=== PATIENT | male | born 1955 | race Caucasian/White ===

== ENCOUNTER 2017-12-06 16:33 | Inpatient (IN) | payer MEDICARE, SELFPAY ==
[2017-12-06] VITALS (30 sets, daily range): BP systolic 98–125; BP diastolic 63–72; PULSE 76–134; RESP 14–35; TEMP 36.7–37.2; O2SAT 95–99
--- NOTE | 2017-12-06 17:30 | DI.RPTCT_ITS ---
SYMPTOM/DIAGNOSIS: FEVER, WEAKNESS, ? PNEUMONIA, CONFUSION, ? ACUTE CVA PA AND LATERAL CHEST: There is chronic elevation of the left hemidiaphragm with superior retraction of the left hilum with suprahilar densities which are unchanged. There are two surgical clips within the left pulmonary hilum, unchanged. There are patchy densities within the right lung apex which is new since the prior study. These findings are suspicious for an acute pneumonitis in the appropriate clinical setting. Follow up imaging to confirm resolution is recommended. Note is made of left apical pleural thickening, unchanged. There is no pneumothorax. The heart is unremarkable. The mediastinum and bony structures are intact. SUMMARY: New right upper lobe patchy densities suspicious for an acute pneumonitis. There are stable appearing postoperative changes within the left hemithorax. NONCONTRAST HEAD CT: A noncontrast enhanced examination was performed. Cerebral atrophy is consistent with the patient's age. There is diffuse heterogeneity in the white matter consistent with small vessel disease. There is no evidence of an acute intra/extra-axial hemorrhage. There is nothing to suggest an acute stroke. The ventricles are unremarkable. There is no skull fracture. The soft tissues are unremarkable. The sinuses are unremarkable. There is no evidence of a mastoid effusion. SUMMARY: No acute intracranial abnormality is demonstrated.
--- NOTE | 2017-12-06 17:38 | ED.GENADUL ---
Disposition Clinical Impression: Fever, Weakness, Altered mental status, Pneumonia Disposition: [facility] INPATIENT Condition: Stable Medical Decision Making - Lab Data Laboratory Tests 12/06/17 12/06/17 12/06/17 17:00 17:00 18:30 WBC Cancelled RBC Cancelled Hgb Cancelled Hct Cancelled MCV Cancelled MCH Cancelled MCHC Cancelled RDW Cancelled Plt Count Cancelled MPV Cancelled Abs Immat Gran (auto) Cancelled Immature Gran % Cancelled Neutrophils % Cancelled Lymphocytes % Cancelled Monocytes % Cancelled Eosinophils % Cancelled Basophils % Cancelled Absolute Neutrophils Cancelled Band Neutrophils Cancelled Absolute Lymphocytes Cancelled Absolute Monocytes Cancelled Absolute Eosinophils Cancelled Absolute Basophils Cancelled Metamyelocytes Cancelled Myelocytes Cancelled Promyelocytes Cancelled Nucleated RBCs Cancelled Differential Comment Cancelled Atypical Lymphocytes Cancelled Other Cell Type Cancelled RBC Morphology Cancelled Polychromasia Cancelled Hypochromasia Cancelled Poikilocytosis Cancelled Basophilic Stippling Cancelled Anisocytosis Cancelled Microcytosis Cancelled Macrocytosis Cancelled Spherocytes Cancelled Target Cells Cancelled Tear Drop Cells Cancelled Ovalocytes Cancelled Stomatocytes Cancelled Armstrong-[place] Bodies Cancelled [place] Cells Cancelled Acanthocytes (Spur) Cancelled Schistocytes Cancelled Sodium Cancelled Potassium Cancelled Chloride Cancelled Carbon Dioxide Cancelled Anion Gap Cancelled BUN Cancelled Creatinine Cancelled Estimated GFR/1.73 m2 Cancelled Glucose Cancelled Lactate 0.9 Calcium Cancelled Magnesium Cancelled Total Bilirubin Cancelled AST Cancelled ALT Cancelled Alkaline Phosphatase Cancelled Troponin I Cancelled Total Protein Cancelled Albumin Cancelled 12/06/17 12/06/17 18:30 18:30 WBC 13.06 H RBC 3.07 L Hgb 10.4 L Hct 29.8 L MCV 97.1 H MCH 33.9 H MCHC 34.9 RDW 13.6 Plt Count 146 MPV 10.4 Abs Immat Gran (auto) Immature Gran % 0.3 Neutrophils % 79.5 Lymphocytes % 8.1 Monocytes % 11.9 Eosinophils % 0.0 Basophils % 0.2 Absolute Neutrophils 10.38 H Band Neutrophils Absolute Lymphocytes 1.06 L Absolute Monocytes 1.55 H Absolute Eosinophils 0.00 Absolute Basophils 0.03 Metamyelocytes Myelocytes Promyelocytes Nucleated RBCs Differential Comment Diff reviewed Atypical Lymphocytes Other Cell Type RBC Morphology Polychromasia Hypochromasia Poikilocytosis Basophilic Stippling Anisocytosis Microcytosis Macrocytosis Spherocytes Target Cells Tear Drop Cells Ovalocytes Stomatocytes Armstrong-[place] Bodies [place] Cells Acanthocytes (Spur) Schistocytes Sodium 137 Potassium 3.7 Chloride 104 Carbon Dioxide 22.6 Anion Gap 10.4 BUN 19 H Creatinine 1.11 Estimated GFR/1.73 m2 >= 60.00 Glucose 126 H Lactate Calcium 8.2 L Magnesium 2.1 Total Bilirubin 1.1 H AST 117 H ALT 103 H Alkaline Phosphatase 132 H Troponin I < 0.02 Total Protein 6.6 Albumin 2.4 L 12/06/17 1646: 97 bpm. Atrial fibrillation. Less than [address] depression noted in 3, aVF V3, V4, V5 and V6. No acute ST elevation. - Radiology Data Radiology results: report reviewed, image reviewed CT head: Negative Chest x-ray: 1. New right upper lobe patchy lung densities suspicious for pneumonia. 2. Radiographically stable appearing postoperative changes within the left thorax. - Medical Decision Making 62-year-old male with a history of atrial fibrillation, ID, Hodgkin's lymphoma with bone marrow transplant in remission, 5 cardiac stents, seizures who presents with fatigue, weakness, decreased p.o. intake, confusion and fever for the past few days. [facility] and discharged today but refused to sign discharge paperwork as she felt he was not appropriate for discharge. Upon review of paperwork from [facility], patient had a temperature of 38 7 last night. He had a chest x-ray which was negative. He had a CT head which was negative for acute findings but noted white matter changes and recommended an MRI. Patient was found to have facial pressure and was thought that he possibly had a sinus infection and was sent home with a prescription for Ceftin she did not yet start. He had a troponin that was 0.07 initially but eventually was ruled out with 2 negative troponins. Patient also had a seizure prior to his admission to [facility] and was continued on his Keppra. I do not see any mention on the discharge paperwork of a lumbar puncture. Patient is drowsy but able to answer some questions. He is oriented to person but not place or time. states this is not his baseline. Temp 99 oral. He has no sinus tenderness. Oral exam negative without any dental abscess or tenderness palpation of teeth. With patient's complaint of fever and confusion, I will do a lumbar puncture. Also proceed with remainder of infectious workup including lactate, blood cultures, chest x-ray, urinalysis and CT head. 193: Labs and imaging reviewed. White blood cell count 13. Lactate 0.9. AST 117. ALT 103. Alk phos 132. Troponin negative. CAT scan negative. Chest x-ray notes a possible right upper lobe pneumonia. Patient had no complaints of chest pain, cough or shortness of breath but with fever and weakness could be a possible pneumonia. Patient states he has a previous h/o transaminitis due to a previous liver injury due to Tylenol. Patient denies any recent Tylenol use. Lumbar puncture done and CSF fluid appeared clear. Patient tolerated procedure well. Patient does appear more alert and is now oriented after IV fluids. 1939: Discussed with Dr. Morin -accepts patient for admission. Will come to see patient in ED. CSF results pending. Will treat for possible pneumonia as possible hospital-acquired as he had recent admission to hospital as well as for possible meningitis. Patient has allergy to penicillin. Dose of vancomycin and Cipro ordered. History of Present Illness - General Chief complaint: GenMedical Stated complaint: UNKNOWN Time Seen by Provider: 12/06/17 16:36 Source: patient, family Mode of arrival: wheelchair Limitations: altered mental status - History of Present Illness Initial comments: Patient is a 62-year-old male atrial fibrillation, ID, Hodgkin's lymphoma with history of bone marrow transplant in remission, and 5 cardiac stents, [facility] who presents for fatigue, weakness, fever and confusion for the past few days. states that patient is normally alert and oriented ?3 and able to function on his own and has not been able to move much over the past few days. She states [facility] and he was admitted for atrial fibrillation. She is unsure about his workup but states he did develop a fever of 101 while there. Patient states they plan to discharge him today but she did not sign the paperwork because she did not think it was appropriate. Patient was driven to home and states she was unable to get him out of the car so she called his PCP Dr. Andersen and he advised him to come directly to the ER. Patient has had decreased p.o. intake but has no complaints of headache, dizziness, chest pain, shortness of breath, abdominal pain, vomiting or diarrhea. - Related Data Ascorbic Acid [Vitamin C] 1 tab PO DAILY 08/04/12 Triamcinolone Acetonide [Triamcinolone Acetonide 0.1%] 1 sunita TP BID #3 08/04/12 Ubidecarenone [Coenzyme Q10] 1 cap PO DAILY 08/04/12 Aspirin 81 mg PO DAILY tab-cap 01/30/13 [place]-3 Fatty Acids/Fish Oil [Fish Oil 1,000 mg Softgel] 1 cap PO BID 04/20/13 Nitroglycerin [Nitrostat] 1 tab SL PRN #25 tab 05/31/13 Omeprazole 20 mg PO BID #180 tab-cap 08/13/15 Cholecalciferol (Vitamin D3) [Vitamin D3] 1,000 unit PO DAILY 01/08/16 Melatonin 5 mg PO hs prn 01/08/16 Nitroglycerin 0.4 mg BC ONCE tab-cap 10/13/16 Metoprolol [Lopressor] 12.5 mg PO BID #90 tablet 12/17/16 LevETIRAcetam [Keppra] 1 tab PO BID #180 tab-cap 02/21/17 LevETIRAcetam [Keppra] 2 tab PO BID #360 tab-cap 02/21/17 Simvastatin [Zocor] 1 tab PO DAILY #90 tab-cap 04/27/17 Apixaban [Eliquis] 2.5 mg PO BID #180 tab-cap 06/14/17 Spironolactone 12.5 mg PO DAILY #90 tab-cap 11/18/17 Allergies Allergy/AdvReac Type Severity Reaction Status Date / Time amoxicillin Allergy Severe Unverified 12/06/17 16:52 potassium Allergy Severe ITCHING, Unverified 12/06/17 16:52 RASH silver Allergy Intermediate SKIN RASH Unverified 12/06/17 16:52 nickel Allergy Mild SKIN RASH Unverified 12/06/17 16:52 acetaminophen Allergy Unknown Unverified 12/06/17 16:52 Iodinated Contrast- Oral and Allergy Unknown Unverified 12/06/17 16:52 IV Dye copper [Copper] Allergy Unverified 12/06/17 16:52 pravastatin AdvReac Unknown MUSCLE Unverified 12/06/17 16:52 ACHES Review of Systems Constitutional: chills, fever Eyes: denies: eye pain ENT: denies: ear pain, throat pain Respiratory: denies: cough, shortness of breath Cardiovascular: denies: chest pain, dyspnea on exertion Gastrointestinal: denies: abdominal pain, nausea, vomiting, diarrhea Genitourinary: denies: urgency, dysuria, frequency Musculoskeletal: denies: back pain Skin: denies: rash, lesions Neurological: weakness. denies: headache, numbness, paresthesias Past Medical History - Past Medical History Medical history: AFIB, AMI, asthma, seizures Retinal detachment, Bone marrow transplant Surgical history: angioplasty/stent Psychiatric history: anxiety, depression - Social History Smoking status: never smoker Alcohol use: occasionally Drug use: none General Exam - General Limitations: no limitations General appearance: alert, in no apparent distress - Eye Eye exam: Present: PERRL, EOMI - ENT ENT exam: Present: mucous membranes dry, TM's normal bilaterally - Neck Neck exam: Present: normal inspection - Respiratory Respiratory exam: Present: normal lung sounds bilaterally. Absent: respiratory distress, wheezes, rales, rhonchi, stridor - Cardiovascular Cardiovascular Exam: Present: regular rate, normal rhythm. Absent: bradycardia, tachycardia - GI/Abdominal GI/Abdominal exam: Present: soft, normal bowel sounds. Absent: distended, tenderness, guarding, rebound, rigid - Neurological Exam Neurological exam: Present: alert, oriented X3, CN II-XII intact, other (Muscle strength 5/5 bilateral upper and lower extremities.). Absent: motor sensory deficit - Psychiatric Psychiatric exam: Present: flat affect - Skin Skin exam: Present: warm, dry, intact Course Vital Signs - 24 hr 12/06/17 16:41 Temperature 99.0 F Pulse 109 H Respiratory 28 H Rate Blood Pressure 105/69 Pulse Oximetry 95
--- NOTE | 2017-12-06 17:42 | ED.GENADUL_ITS ---
Disposition Clinical Impression: Fever, Weakness, Altered mental status, Pneumonia Disposition: [facility] INPATIENT Condition: Stable Medical Decision Making - Lab Data Laboratory Tests 12/06/17 12/06/17 12/06/17 17:00 17:00 18:30 WBC Cancelled RBC Cancelled Hgb Cancelled Hct Cancelled MCV Cancelled MCH Cancelled MCHC Cancelled RDW Cancelled Plt Count Cancelled MPV Cancelled Abs Immat Gran (auto) Cancelled Immature Gran % Cancelled Neutrophils % Cancelled Lymphocytes % Cancelled Monocytes % Cancelled Eosinophils % Cancelled Basophils % Cancelled Absolute Neutrophils Cancelled Band Neutrophils Cancelled Absolute Lymphocytes Cancelled Absolute Monocytes Cancelled Absolute Eosinophils Cancelled Absolute Basophils Cancelled Metamyelocytes Cancelled Myelocytes Cancelled Promyelocytes Cancelled Nucleated RBCs Cancelled Differential Comment Cancelled Atypical Lymphocytes Cancelled Other Cell Type Cancelled RBC Morphology Cancelled Polychromasia Cancelled Hypochromasia Cancelled Poikilocytosis Cancelled Basophilic Stippling Cancelled Anisocytosis Cancelled Microcytosis Cancelled Macrocytosis Cancelled Spherocytes Cancelled Target Cells Cancelled [place]ear [place] Cells Cancelled Ovalocytes Cancelled Stomatocytes Cancelled Armstrong-[place] Bodies Cancelled [place] Cells Cancelled Acanthocytes (Spur) Cancelled Schistocytes Cancelled Sodium Cancelled Potassium Cancelled Chloride Cancelled Carbon Dioxide Cancelled Anion Gap Cancelled BUN Cancelled Creatinine Cancelled Estimated GFR/1.73 m2 Cancelled Glucose Cancelled Lactate 0.9 Calcium Cancelled Magnesium Cancelled Total Bilirubin Cancelled AST Cancelled ALT Cancelled Alkaline Phosphatase Cancelled Troponin I Cancelled Total Protein Cancelled Albumin Cancelled 12/06/17 12/06/17 18:30 18:30 WBC 13.06 H RBC 3.07 L Hgb 10.4 L Hct 29.8 L MCV 97.1 H MCH 33.9 H MCHC 34.9 RDW 13.6 Plt Count 146 MPV 10.4 Abs Immat Gran (auto) Immature Gran % 0.3 Neutrophils % 79.5 Lymphocytes % 8.1 Monocytes % 11.9 Eosinophils % 0.0 Basophils % 0.2 Absolute Neutrophils 10.38 H Band Neutrophils Absolute Lymphocytes 1.06 L Absolute Monocytes 1.55 H Absolute Eosinophils 0.00 Absolute Basophils 0.03 Metamyelocytes Myelocytes Promyelocytes Nucleated RBCs Differential Comment Diff reviewed Atypical Lymphocytes Other Cell Type RBC Morphology Polychromasia Hypochromasia Poikilocytosis Basophilic Stippling Anisocytosis Microcytosis Macrocytosis Spherocytes Target Cells Tear Drop Cells Ovalocytes Stomatocytes Armstrong-[place] Bodies [place] Cells Acanthocytes (Spur) Schistocytes Sodium 137 Potassium 3.7 Chloride 104 Carbon Dioxide 22.6 Anion Gap 10.4 BUN 19 H Creatinine 1.11 Estimated GFR/1.73 m2 >= 60.00 Glucose 126 H Lactate Calcium 8.2 L Magnesium 2.1 Total Bilirubin 1.1 H AST 117 H ALT 103 H Alkaline Phosphatase 132 H Troponin I < 0.02 Total Protein 6.6 Albumin 2.4 L 12/06/17 1646: 97 bpm. Atrial fibrillation. Less than [address] depression noted in 3, aVF V3, V4, V5 and V6. No acute ST elevation. - Radiology Data Radiology results: report reviewed, image reviewed CT head: Negative Chest x-ray: 1. New right upper lobe patchy lung densities suspicious for pneumonia. 2. Radiographically stable appearing postoperative changes within the left thorax. - Medical Decision Making 62-year-old male with a history of atrial fibrillation, [place], Hodgkin's lymphoma with bone marrow transplant in remission, 5 cardiac stents, seizures who presents with fatigue, weakness, decreased p.o. intake, confusion and fever for the past few days. Patient was admitted 2 [facility] yesterday for atrial fibrillation and discharged today but refused to sign discharge paperwork as she felt he was not appropriate for discharge. Upon review of paperwork from [facility], patient had a temperature of 38 7 last night. He had a chest x-ray which was negative. He had a CT head which was negative for acute findings but noted white matter changes and recommended an MRI. Patient was found to have facial pressure and was thought that he possibly had a sinus infection and was sent home with a prescription for Ceftin she did not yet start. He had a troponin that was 0.07 initially but eventually was ruled out with 2 negative troponins. Patient also had a seizure prior to his admission to [facility] and was continued on his Keppra. I do not see any mention on the discharge paperwork of a lumbar puncture. Patient is drowsy but able to answer some questions. He is oriented to person but not place or time. states this is not his baseline. Temp 99 oral. He has no sinus tenderness. Oral exam negative without any dental abscess or tenderness palpation of teeth. With patient's complaint of fever and confusion, I will do a lumbar puncture. Also proceed with remainder of infectious workup including lactate, blood cultures, chest x-ray, urinalysis and CT head. 193: Labs and imaging reviewed. White blood cell count 13. Lactate 0.9. AST 117. ALT 103. Alk phos 132. Troponin negative. CAT scan negative. Chest x- ray notes a possible right upper lobe pneumonia. Patient had no complaints of chest pain, cough or shortness of breath but with fever and weakness could be a possible pneumonia. Patient states he has a previous h/o transaminitis due to a previous liver injury due to Tylenol. Patient denies any recent Tylenol use. Lumbar puncture done and CSF fluid appeared clear. Patient tolerated procedure well. Patient does appear more alert and is now oriented after IV fluids. 1939: Discussed with Dr. Morin -accepts patient for admission. Will come to see patient in ED. CSF results pending. Will treat for possible pneumonia as possible hospital-acquired as he had recent admission to hospital as well as for possible meningitis. Patient has allergy to penicillin. Dose of vancomycin and Cipro ordered. History of Present Illness - General Chief complaint: GenMedical Stated complaint: UNKNOWN Time Seen by Provider: 12/06/17 16:36 Source: patient, family Mode of arrival: wheelchair Limitations: altered mental status - History of Present Illness Initial comments: Patient is a 62-year-old male atrial fibrillation, [place], Hodgkin's lymphoma with history of bone marrow transplant in remission, and 5 cardiac stents, with recent admission to [facility] yesterday for atrial fibrillation who presents for fatigue, weakness, fever and confusion for the past few days. states that patient is normally alert and oriented 3 and able to function on his own and has not been able to move much over the past few days. She states yesterday she took him to [facility] for his symptoms and he was admitted for atrial fibrillation. She is unsure about his workup but states he did develop a fever of 101 while there. Patient states they plan to discharge him today but she did not sign the paperwork because she did not think it was appropriate. Patient was driven to home and states she was unable to get him out of the car so she called his PCP Dr. Andersen and he advised him to come directly to the ER. Patient has had decreased p.o. intake but has no complaints of headache, dizziness, chest pain, shortness of breath, abdominal pain, vomiting or diarrhea. - Related Data Ascorbic Acid [Vitamin C] 1 tab PO DAILY 08/04/12 Triamcinolone Acetonide [Triamcinolone Acetonide 0.1%] 1 sunita TP BID #3 08/04/12 Ubidecarenone [Coenzyme Q10] 1 cap PO DAILY 08/04/12 Aspirin 81 mg PO DAILY tab-cap 01/30/13 [place]-3 Fatty Acids/Fish Oil [Fish Oil 1,000 mg Softgel] 1 cap PO BID 04/20/13 Nitroglycerin [Nitrostat] 1 tab SL PRN #25 tab 05/31/13 Omeprazole 20 mg PO BID #180 tab-cap 08/13/15 Cholecalciferol (Vitamin D3) [Vitamin D3] 1,000 unit PO DAILY 01/08/16 Melatonin 5 mg PO hs prn 01/08/16 Nitroglycerin 0.4 mg BC ONCE tab-cap 10/13/16 Metoprolol [Lopressor] 12.5 mg PO BID #90 tablet 12/17/16 LevETIRAcetam [Keppra] 1 tab PO BID #180 tab-cap 02/21/17 LevETIRAcetam [Keppra] 2 tab PO BID #360 tab-cap 02/21/17 Simvastatin [Zocor] 1 tab PO DAILY #90 tab-cap 04/27/17 Apixaban [Eliquis] 2.5 mg PO BID #180 tab-cap 06/14/17 Spironolactone 12.5 mg PO DAILY #90 tab-cap 11/18/17 Allergies Allergy/AdvReac Type Severity Reaction Status Date / Time amoxicillin Allergy Severe Unverified 12/06/17 16:52 potassium Allergy Severe ITCHING, Unverified 12/06/17 16:52 RASH silver Allergy Intermediate SKIN RASH Unverified 12/06/17 16:52 nickel Allergy Mild SKIN RASH Unverified 12/06/17 16:52 acetaminophen Allergy Unknown Unverified 12/06/17 16:52 Iodinated Contrast- Oral and Allergy Unknown Unverified 12/06/17 16:52 IV Dye copper [Copper] Allergy Unverified 12/06/17 16:52 pravastatin AdvReac Unknown MUSCLE Unverified 12/06/17 16:52 ACHES Review of Systems Constitutional: chills, fever Eyes: denies: eye pain ENT: denies: ear pain, throat pain Respiratory: denies: cough, shortness of breath Cardiovascular: denies: chest pain, dyspnea on exertion Gastrointestinal: denies: abdominal pain, nausea, vomiting, diarrhea Genitourinary: denies: urgency, dysuria, frequency Musculoskeletal: denies: back pain Skin: denies: rash, lesions Neurological: weakness. denies: headache, numbness, paresthesias Past Medical History - Past Medical History Medical history: AFIB, AMI, asthma, seizures Retinal detachment, Bone marrow transplant Surgical history: angioplasty/stent Psychiatric history: anxiety, depression - Social History Smoking status: never smoker Alcohol use: occasionally Drug use: none General Exam - General Limitations: no limitations General appearance: alert, in no apparent distress - Eye Eye exam: Present: PERRL, EOMI - ENT ENT exam: Present: mucous membranes dry, TM's normal bilaterally - Neck Neck exam: Present: normal inspection - Respiratory Respiratory exam: Present: normal lung sounds bilaterally. Absent: respiratory distress, wheezes, rales, rhonchi, stridor - Cardiovascular Cardiovascular Exam: Present: regular rate, normal rhythm. Absent: bradycardia , tachycardia - GI/Abdominal GI/Abdominal exam: Present: soft, normal bowel sounds. Absent: distended, tenderness, guarding, rebound, rigid - Neurological Exam Neurological exam: Present: alert, oriented X3, CN II-XII intact, other (Muscle strength 5/5 bilateral upper and lower extremities.). Absent: motor sensory deficit - Psychiatric Psychiatric exam: Present: flat affect - Skin Skin exam: Present: warm, dry, intact Course Vital Signs - 24 hr 12/06/17 16:41 Temperature 99.0 F Pulse 109 H Respiratory 28 H Rate Blood Pressure 105/69 Pulse Oximetry 95
[2017-12-06] MEDS: Normal Saline 1,000 ML 1000 ML IV (18:16)
--- NOTE | 2017-12-06 18:29 | DI.VRAD_ITS ---
EXAM: CT Head Without Intravenous Contrast CLINICAL HISTORY: 62 years old, male; Signs and symptoms; Other: Confusion, fever, weakness, R/O acute CVA TECHNIQUE: Axial computed tomography images of the head/brain without intravenous contrast. All CT scans at this facility use at least one of these dose optimization techniques: automated exposure control; mA and/or kV adjustment per patient size (includes targeted exams where dose is matched to clinical indication); or iterative reconstruction. Coronal and sagittal reformatted images were created and reviewed. COMPARISON: CT - HEAD WITHOUT CONTRAST 2013-02-17 13:14 FINDINGS: Brain: Mild global cerebral atrophy is consistent with patient's age. There is marked diffuse heterogeneity of the white matter attenuation, consistent with severe chronic white matter ischemic changes, similar to the prior examination. No CT scan evidence of acute stroke. No hemorrhage. Ventricles: Unremarkable. No ventriculomegaly. Bones/joints: Unremarkable. No acute fracture. Soft tissues: Unremarkable. Sinuses: Unremarkable as visualized. No acute sinusitis. Mastoid air cells: Unremarkable as visualized. No mastoid effusion. IMPRESSION: No acute findings. Dictated and Authenticated by: Jon Carvalho MD. Ordering:BRITANY EARLY MD
--- NOTE | 2017-12-06 18:31 | DI.VRAD_ITS ---
EXAM: XR Chest, 2 Views CLINICAL HISTORY: 62 years old, male; Signs and symptoms; Other: Fever, weakness, R/O pneumonia TECHNIQUE: Frontal and lateral views of the chest. COMPARISON: CR - CHEST 2 VIEWS PA,LAT 2015-03-14 15:20 FINDINGS: Lungs: Chronic elevation of left diaphragm is unchanged. Superior retraction of the left pulmonary hilum with suprahilar densities are unchanged. There are 2 surgical clips within the left pulmonary hilum, unchanged. There are patchy densities within the right lung apex, new since the prior examination. Findings are suspicious for pneumonia given the proper clinical setting. Followup imaging to confirm resolution is recommended. Pleural space: Left apical pleural thickening is unchanged. No pneumothorax. Heart: Unremarkable. No cardiomegaly. Mediastinum: Unremarkable. Bones/joints: Unremarkable. IMPRESSION: 1. New right upper lobe patchy lung densities suspicious for pneumonia. 2. Radiographically stable appearing postoperative changes within the left thorax. Dictated and Authenticated by: Jon Carvalho MD. Ordering:BRITANY EARLY MD
[2017-12-06 18:41] LABS: Lactate-non-spesis 0.9 mmol/L (0.6-1.4)
[2017-12-06 18:47] LABS: Abs Immature Grans 0.04 k/cumm (0.0-0.09); Absolute Lymphocyte Count 1.06 k/cumm (1.2-3.4); Absolute Neutrophil Count 10.38 k/cumm (1.2-6.7); Basophils % 0.2; HCT 29.8 % (40.0-50.0); HGB 10.4 g/dL (13.5-17.5); Immature Grans % 0.3; Lymphocytes % 8.1; Mean Corp. HGB Concentration 34.9 g/dL (32.0-36.0); Mean Corpuscular Hemoglobin 33.9 pg (27.0-33.0); Mean Corpuscular Volume 97.1 fL (80-95); Mean Platelet Volume 10.4 fL (8.0-11.0); Monocytes % 11.9; Neutrophils % 79.5; Platelet Count 146 x1000/uL (130-400); RBC 3.07 m/cumm (4.50-6.00); RBC Distribution Width 13.6 % (11.8-14.1); White Blood Cell Count 13.06 k/cumm (4.4-10.8)
[2017-12-06 19:02] LABS: Absolute Basophil Count 0.03 k/cumm (0.0-0.2); Absolute Monocyte Count 1.55 k/cumm (0.11-0.7); Diff Comment Diff Reviewed
[2017-12-06 19:06] LABS: ALT 103 U/L (12-78); AST 117 U/L (15-37); Albumin 2.4 g/dL (3.4-5.0); Alkaline Phosphatase 132 U/L (46-116); Anion Gap 10.4 mmol/L (3-11); BUN 19 mg/dL (7-18); Bilirubin, Total 1.1 mg/dL (0.2-1.0); CO2 22.6 mmol/L (21.0-32.0); CREATININE 1.11 mg/dL (0.70-1.30); Calcium 8.2 mg/dL (8.5-10.1); Chloride 104 mmol/L (98-107); Glucose 126 mg/dL (70-100); Magnesium 2.1 mg/dL (1.8-2.4); Potassium 3.7 mmol/L (3.5-5.1); Sodium 137 mmol/L (136-145); Total Protein 6.6 g/dL (6.4-8.2); Troponin I < 0.02 ng/mL (0.00-0.06)
[2017-12-06 20:17] LABS: Clarity Clear; RBC 2 /mm3 (0-5); Tube # 4; WBC 1 /mm3 (0-5); Xanthochromia Absent
[2017-12-06 20:18] LABS: Glucose (CSF) 82 mg/dL (40-70); Total Protein (CSF) 31 mg/dL (15-45)
[2017-12-06] MEDS: CIPROFLOXACIN 400 MG/200 ML BAG 200 MG IVPB (20:30)
[2017-12-06 20:37] LABS: Lymphocytes CSF 65 % (63-99); Monocyte/Macrophage CSF 35 % (3-37); Neutrophils CSF 0 % (0-2)
[2017-12-06 20:41] LABS: Other Cells CSF 0 % (0-0)
[2017-12-06 20:42] LABS: Differential CSF: Performed
--- NOTE | 2017-12-06 21:28 | HPE_ITS ---
DATE OF ADMISSION: December 06, 2017 CHIEF COMPLAINT: Weakness and cough. IMPRESSION: Pneumonia. PLAN: I think we can treat this as standard outpatient pneumonia. Clearly there was, as well, an el ement of dehydration and the patient is much improved symptomatically following fluids. I did review Advance Directives and the patient wishes to be a FULL CODE. HISTORY OF PRESENT ILLNESS: The patient is a 62-year-old male who has had three to four days of weak ness, dry cough, and general malaise. He was admitted to [facility] last night with no fin dings and discharged. He comes to the Emergency Room for evaluation of ongoing complaints. Here in the Emergency Room he was reported to have had a temperature of 38.7 the night prior to admis darin. Here his temperature is 37.2. Evaluation of note for leukocytosis and right upper lobe infilt rate. He was given a liter of saline and felt very much better. He was then given a dose of vancomy chelsea and Cipro and was admitted for further evaluation and management. Please note that he also had L P performed, results are pending at this time. PAST MEDICAL HISTORY: 1. Coronary disease. 2. Seizure disorder. 3. Depression. 4. Hodgkin disease, 1995. 5. Left hemidiaphragm paralysis. 6. Chronic anemia. ALLERGIES: 1. Amoxicillin 2. Potassium 3. Silver 4. Nickel 5. Tylenol 6. IV contrast 7. Copper 8. Pravastatin MEDICATIONS: 1. Aspirin 81 mg daily. 2. Vitamin C. 3. Eliquis 2.5 mg b.i.d. 4. Nitroglycerin p.r.n. 5. Lopressor 12.5 mg b.i.d. 6. Melatonin 5 mg at h.s. 7. Keppra 1500 mg b.i.d. 8. CoQ-10. 9. Spironolactone 12.5 mg daily. 10. Zocor, unknown dose. 11. Prilosec 20 mg b.i.d. PHYSICAL EXAMINATION: GENERAL: The patient is lying flat in the stretcher in no distress. VITAL SIGNS: Temperature 37.2. Blood pressure 102/72. Pulse 95 (ranging from 81 to 109). Respirat ions 14. O2 saturation 97% on room air. HEENT: Unremarkable. NECK: Supple. LUNGS: A few fine rales right upper lobe. HEART: Irregularly irregular. ABDOMEN: Soft and nontender. RECTAL: Heme negative. EXTREMITIES: Without edema. NEUROLOGIC: The patient is alert, oriented, and moves all four extremities. LABORATORY: White count 13.0, hematocrit 29.8, platelets 146,000. Sodium 137, potassium 3.7, chloride 104, bicarb 22, BUN 19, creatinine 1.1, glucose 126, lactate 0.9, total bilirubin 1.1, AST 117, ALT 103, alkaline phosphatase 132, troponin negative, albumin 2.4. Chest x-ray shows right upper lobe infiltrate. Note that the comparator film was 2015 but the report from [facility] (the report, not the film itself) does not indicate any pneumonia. CSF shows 1 white cell, 2 red cells.
[2017-12-06] MEDS: Normal Saline 1,000 ML 100 ML IV (22:07)
[2017-12-06] MEDS: Apixaban 2.5 MG TAB PO (22:07)
[2017-12-06] MEDS: VANCOMYCIN 1,250 MG in Normal Saline 250 ML 166.6666 MG IVPB (22:21)
[2017-12-07 08:15] VITALS: BP 97/63; PULSE 90; RESP 18; TEMP 37.8; O2SAT 97
[2017-12-07 08:59] LABS: Abs Immature Grans 0.03 k/cumm (0.0-0.09); Absolute Basophil Count 0.01 k/cumm (0.0-0.2); Absolute Eosinophil Count 0.01 k/cumm (0.0-0.7); Absolute Lymphocyte Count 1.04 k/cumm (1.2-3.4); Basophils % 0.1; Eosinophils % 0.1; HCT 31.6 % (40.0-50.0); HGB 10.8 g/dL (13.5-17.5); Immature Grans % 0.2; Lymphocytes % 8.1; Mean Corp. HGB Concentration 34.2 g/dL (32.0-36.0); Mean Corpuscular Hemoglobin 33.2 pg (27.0-33.0); Mean Corpuscular Volume 97.2 fL (80-95); Mean Platelet Volume 10.2 fL (8.0-11.0); Neutrophils % 81.5; Platelet Count 158 x1000/uL (130-400); RBC 3.25 m/cumm (4.50-6.00); RBC Distribution Width 13.8 % (11.8-14.1); White Blood Cell Count 12.85 k/cumm (4.4-10.8)
[2017-12-07 09:00] LABS: Absolute Monocyte Count 1.29 k/cumm (0.11-0.7); Absolute Neutrophil Count 10.47 k/cumm (1.2-6.7)
[2017-12-07] MEDS: LEVOFLOXACIN 750 MG/150 ML BAG 150 MG IVPB (09:06)
[2017-12-07] MEDS: Metoprolol 12.5 MG TAB PO ×2 (09:07→20:30)
[2017-12-07] MEDS: Aspirin 81 MG CHEW PO (09:08)
[2017-12-07] MEDS: Apixaban 2.5 MG TAB PO ×2 (09:08→20:31)
[2017-12-07] MEDS: Omeprazole 20 MG CAPCR PO ×2 (09:08→20:30)
[2017-12-07] MEDS: Ascorbic Acid 500 MG TAB PO (09:08)
[2017-12-07 09:22] LABS: ALT 154 U/L (12-78); AST 154 U/L (15-37); Albumin 2.5 g/dL (3.4-5.0); Alkaline Phosphatase 164 U/L (46-116); Anion Gap 11.5 mmol/L (3-11); BUN 12 mg/dL (7-18); Bilirubin, Total 1.4 mg/dL (0.2-1.0); CO2 22.5 mmol/L (21.0-32.0); Calcium 8.3 mg/dL (8.5-10.1); Chloride 106 mmol/L (98-107); Glucose 155 mg/dL (70-100); Potassium 3.9 mmol/L (3.5-5.1); Sodium 140 mmol/L (136-145)
--- NOTE | 2017-12-07 10:42 | PDOC.CMIN ---
Care Management Initial Assess REASON FOR HOSPITALIZATION:: Pnemonia PAST MEDICAL HISTORY/PAST SURGICAL HISTORY:: Coronary disease, Seizure disorder, Depression, Hodgkin disease, 1996, Left hemidiaphragm paralysis, chronic anemia, A-fib, High cholesterol, Low BP, Raynauds, panic attacks, retinal detachment, cardiac cathertization (stents x5), retina repair, bone marrow transplant PREVIOUS FUNCTIONAL STATUS/SOCIAL/FAMILY SUPPORTS:: Dejuan resides in [place], [place] with his ; Luana, their adopted twelve year old daughter; Latia and Luana's adult daughter. Dejuna and Luana are both deemed disabled and Dejuan stays busy with ADLs, caring for their home and raising Latia as she has support services through and struggles with regulation and succeeding academically and socially. CURRENT FUNCTIONAL STATUS:: Dejuan is lying in bed when meets with him. He reports he is not feeling well, though he is fully engaged and forthcoming with information. ADVANCE DIRECTIVES:: None on file at [facility]-Dejuan reports he is uninterested in completing document at this time but states that Luana would be his agent. Has patient been provided with information about the portal?: Yes Did the patient sign up for the portal?: No CODE STATUS:: Full Code INSURANCE COVERAGE / FINANCIAL ISSUES:: Medicare CURRENT HOME/COMMUNITY SERVICES/EQUIPMENT:: No current services or equipment; Dejuan is deemed disabled and had disability income. PRIMARY CARE PHYSICIAN:: [facility] POTENTIAL DISCHARGE NEEDS:: Follow up appointments with community based providers. PATIENT/FAMILY EDUCATION NEEDS:: Review of discharge instructions, discussion central to self care needs and Ask Me Three. ANTICIPATED BARRIERS TO DISCHARGE:: None identified. TRANSPORTATION:: Via private vehicle with his , Luana. PLAN:: Dejuan will return home when ready per MD. He will follow up with his PCP and plan of care as prescribed. He will transport home via private vehicle with his , Luana.
--- NOTE | 2017-12-07 11:24 | PHARADMIT ---
Addendum entered by Ana Sanford 12/18/17 09:32: Pharmacy Note Subjective CHF improving, converted to sinus rhythm, bp stabilized Objective wt down 8kg since admission, SCR up from 1.07 to 1.19 MDA Assessment diltiazem infusion d/c'd, folic acid started, Iv furosemide stopped and PO starting tomorrow Plan possible transfer to [facility] today Original Note: Addendum entered by Ana Sanford 12/17/17 12:50: Pharmacy Note Subjective CHF improving, Objective bp stable, vs ok, WBc down, Assessment diltiazem drip stopped, amiodarone started Plan expect diltiazem order to be d/c'd, Original Note: Addendum entered by Donny Tian III 12/16/17 14:48: Pharmacy Note Subjective Diuresis continues, down 4+ liters over last 48 hrs. Cough wheezing improved. working with PT. Has episodes of a-fib (HR-160) MD would like him to bee on PO Diltiazem & Metoprolol. Objective VS-OK BP low, 86/59 K+3.6 SCr-0.94 WBC-13.30 H&H steady, Last BM 12/14 No wgt today. Assessment Diltiazem drip & IV Lasix continues. On PO Potassium replacement. Plan Needs continued PT Amiodarone is still being considered. Original Note: Addendum entered by Donny Tian III 12/15/17 16:34: Pharmacy Note Subjective Patient went for ECHO Cardiogram, EF-45%, MD mentioned possible conversion o Amiodarone. Objective VS-OK BP-94/64 BNP-16,505 K+3.5 Na-143 SCr-1.09 WBC- 14.42 H&H-OK Assessment On Eliquis, Diltiazem drip continues, ABX stopped..COPD exacerbation with CHF On IV Lasix Plan No new MD note yet today. Continue diuresis. Original Note: Addendum entered by Chantelle Beasley 12/14/17 16:27: Pharmacy Note Subjective pt was in afib all night per nursing report Objective HR-142 RR-25 other VS okay Cl-109 WBC-17.29(up) Assessment simvastatin dose decreased due to diltiazem PO diltiazem was ordered then put on hold, ditiazem drip was ordered. cefepime discontinued prednisone changed from BID to daily furosemide ordered IVP BID lorazepam ordered QID PRN alteplase ordered time one dose Plan watch VS, labs and for med changes, may be transferred Original Note: Addendum entered by Chantelle Beasley 12/13/17 16:24: Pharmacy Note Subjective in and out of afib per morning report Objective VS-okay K+3.2 Cl-108 SCr-1.21(up) WBC-15.08(up slightly) h/h-8.8/26.6 Assessment -vanco dose was given late and trough early so trough came back very high; MD discontinued vanco and levofloxacin, cefepime continues -apixaban dose decreased back to 2.5 mg BID -metoprolol dose increased to 50 mg Q12H -diltiazem drip was put on hold Plan watch VS, labs and for med changes Original Note: Addendum entered by Ana Sanford 12/12/17 13:38: Pharmacy Note Subjective pt is wheezing Objective vs ok, on 2L O2, WBC up a bit (MDA), H/H stable, Assessment vancomycin day 4, cefepime day 4 and levofloxacin day 6 continue, prednisone and pulmicort updraft started, apixaban continues, per morning meeting stopped albuterol updraft Plan vanco trough ordered for 12/13 @0700 to be evaluated Original Note: Addendum entered by Chantelle Beasley 12/11/17 13:02: Pharmacy Note Subjective pt stated he is feeling better but had some tachycardia so sent to ICU yesterday per morning report Objective VS-okay Cl-111(up) wbc-12.41(down) AST-35(down) ALT-102(down) Assessment vanco trough came back high at 28.5 so adjusted dose to 1250 Q12H to target a trough of 16.7 cefepime and levofloxacin continue diltizem drip ordered with parameters-started this morning but shut off shortly after metoprolol dose increased from 25 mg to 37.5 mg Q12H pts own orajel was checked and put up in pt med bin Plan schedule vanco trough and adjust dosing as needed Original Note: Addendum entered by Chantelle Beasley 12/10/17 13:01: Pharmacy Note Subjective Objective VS-okay Cl-108 WBC-13.13(up) h/h-8.9/26.0 AST-75(up) ALT-154(up) Assessment levofloxacin restarted, vanco and cefepime continue (changed from Q12H to Q8H apixaban was under dosed so Md increased dose yesterday metoprolol changed from 12.5 mg Q6H to 25 mg Q12H levalbuterol ordered PRN Plan vanco trough scheduled for 1700 today Original Note: Addendum entered by Donny Tian III 12/08/17 16:50: Pharmacy Note Subjective fever overnight (38C, 36.3C now), WBC remains elevated, On Levaquin. Working with PT to regain strength. Objective VS-OK K+3.6 SCr-0.98 WBC-12.01 (Afebrile now) LFTs elevated. H&H-9.1/26.2 Plts-136 BM last 2 days Assessment May may add ABX if no improvement. MD questioning why his Eliquis dose is low (2.5mg bid) had no time to check. CM patient. Plan MD to transition to inpatient. Watch for new ABX order Original Note: Admission Pharmacy Clinical Review Pneumonia Code Status Full Code Current Weight Wgt- 70.1 kg Renally Cleared and Narrow Therapeutic Index Meds CrCl~ 63 mL/min Meds-OK QTc Value / Action Taken QTc-452 NA BP Control, Fever BP- 97/63 Tmax- 37.8C Electrolytes reviewed Na- 140 K+ 3.9 Mag- 2.1 DVT Prophylaxis Eliquis Opiate Usage / Scheduled Bowel Regimen Ordered nO nO Plt/SCr for Heparin / Enoxaparin Plts-155 SCr-1.1 INR for Warfarin na H/H stable, WBC/Bands H&H- 10.8/31.6 WBC- 12.85 Antibiotic appropriateness Levaquin, Vanco x 1 Cultures and Sensitivities CSF-Pending, BLOOD-PENDING Surgical ABX d/c within 24 hr NA DM control / Insulin Dosing BG-155 Heart Failure (Check EF%) (JORGE's, B-Block, Diuretics) Lopressor IV to PO Switch No Home Meds Reviewed Yes Home Meds Not Ordered Vit-D3, [place]-3, Spironolactone, NTG, TAC Crm, CoEnyzmeQ Comments
[2017-12-07] MEDS: Normal Saline 1,000 ML 100 ML IV ×2 (11:47→21:25)
[2017-12-07 12:10] LABS: Bilirubin Small (Negative); Blood Negative (Negative); Clarity Sl Cloudy; Glucose Negative (Negative); Ketones 15 mg/dL (Negative); Leukocyte Esterase Negative (Negative); Nitrite Negative (Negative); Specific Gravity >= 1.030 (1.005-1.025); pH 5.5 (5-8)
--- NOTE | 2017-12-07 12:13 | INITIAL_ITS ---
Care Management Initial Assess REASON FOR HOSPITALIZATION:: Pnemonia PAST MEDICAL HISTORY/PAST SURGICAL HISTORY:: Coronary disease, Seizure disorder , Depression, Hodgkin disease, 1996, Left hemidiaphragm paralysis, chronic anemia, A-fib, High cholesterol, Low BP, Raynauds, panic attacks, retinal detachment, cardiac cathertization (stents x5), retina repair, bone marrow transplant PREVIOUS FUNCTIONAL STATUS/SOCIAL/FAMILY SUPPORTS:: Dejuan resides in [place], [place] with his ; Luana, their adopted twelve year old daughter; Latia and Luana's adult daughter. Dejuan and Luana are both deemed disabled and Dejuan stays busy with ADLs, caring for their home and raising Latia as she has support services through and struggles with regulation and succeeding academically and socially. CURRENT FUNCTIONAL STATUS:: Dejuan is lying in bed when meets with him. He reports he is not feeling well, though he is fully engaged and forthcoming with information. ADVANCE DIRECTIVES:: None on file at [facility]-Dejuan reports he is uninterested in completing document at this time but states that Luana would be his agent. Has patient been provided with information about the portal?: Yes Did the patient sign up for the portal?: No CODE STATUS:: Full Code INSURANCE COVERAGE / FINANCIAL ISSUES:: Medicare CURRENT HOME/COMMUNITY SERVICES/EQUIPMENT:: No current services or equipment; Dejuan is deemed disabled and had disability income. PRIMARY CARE PHYSICIAN:: [facility] POTENTIAL DISCHARGE NEEDS:: Follow up appointments with community based providers. PATIENT/FAMILY EDUCATION NEEDS:: Review of discharge instructions, discussion central to self care needs and Ask Me Three. ANTICIPATED BARRIERS TO DISCHARGE:: None identified. TRANSPORTATION:: Via private vehicle with his , Luana. PLAN:: Dejuan will return home when ready per MD. He will follow up with his PCP and plan of care as prescribed. He will transport home via private vehicle with his , Luana.
[2017-12-07 12:22] LABS: Epithelial Cells Rare HPF (Negative); Other Cells Negative (Negative); RBC Negative (0-2)
[2017-12-07 12:23] LABS: Bacteria Many HPF (Negative); C & S Indicated? Yes; Casts 3-5 Coarse Granular LPF (Negative); Crystals Negative HPF (Negative); Mucus Moderate (Negative)
[2017-12-07 14:16] VITALS: BP 100/66; PULSE 82; RESP 16; TEMP 37.3; O2SAT 98
--- NOTE | 2017-12-07 15:17 | CHAPLAIN ---
Dejuan was in bed when I visited. He told me he is from [place], [place] and loves the area there. However he prefers to come to [facility] rather than [facility] closer by to where he lives. He expects his will be in later to visit.
[2017-12-07 16:09] VITALS: BP 105/59; PULSE 97; RESP 17; TEMP 38.4; O2SAT 97
[2017-12-07 17:17] VITALS: TEMP 38.3
[2017-12-07 17:48] VITALS: TEMP 38.3
[2017-12-07] MEDS: Ibuprofen 600 MG TAB PO (17:48)
[2017-12-07] MEDS: Simvastatin 20 MG TAB PO (21:24)
[2017-12-07 22:00] VITALS: BP 112/74; PULSE 87; RESP 18; TEMP 36.8; O2SAT 98
--- NOTE | 2017-12-07 22:11 | PGE_ITS ---
DATE OF SERVICE: December 07, 2017 ASSESSMENT AND PLAN: #1. Weakness. Likely on the basis of pneumonia. Please see treatment as below. #2. Pneumonia. Patient was hospitalized recently but for what amounted to either 24 hours or less t lewis one day. Otherwise, he has had no recent hospitalizations or stays at healthcare facilities, sic k contacts, or any recent antibiotic therapy. He is currently under coverage for likely community-ac quired pneumonia with a respiratory fluoroquinolone. Continue Levaquin, currently day #2. Sputum cu lture ordered but not yet collected. Blood cultures are pending at this time. Continue DuoNebs on a p.r.n. basis as well. #3. Seizure disorder. Continue Keppra at home dosing. #4. Atrial fibrillation. Currently appears rate controlled. Continue apixaban and metoprolol, and monitor heart rate carefully. Of note, the patient's apixaban appears to be underdosed as Mr. Lucas marrufo does not meet criteria for low-dose anticoagulation by either weight, creatinine, or age. Will ch dorothea with Pharmacy regarding dosing tomorrow and increase dose if appropriate. #5. Elevated LFTs. Unsure of basis for patient's elevation in LFTs, which appears to be somewhat of a chronic finding although with lower numbers in the past. The patient has had normal LFTs in 2013 through 2015, but with elevated numbers in February of 2013. This may be on the basis of acute illnes s. However, will monitor daily and if continues to uptrend will certainly work this up further. Con digital media associate liver ultrasound if numbers continue to elevate tomorrow. #6. Left hemidiaphragm paralysis - noted. #7. Chronic anemia. Hemoglobin appears to be stable. Continue to monitor. #8. Prophylaxis. Currently on apixaban, albeit a subtherapeutic dose. Continue PPI therapy as well . SUBJECTIVE: Ghfbk-tfvg-hqpt-old man with a past medical history significant for CAD, atrial fibrilla tion on anticoagulation, seizure disorder, and prior history of Hodgkin disease presents to the [facility] Emergency Department with a four-day history of weakness. Mr. Cummings was admitted to [facility] the evening prior to his admission, without any spe cific findings to explain his weakness, and discharged home. He reports to the [facility] Emergency Depart ment with worsening symptoms. He was found to be febrile, with a mild leukocytosis, and evidence of a right upper lobe infiltrate by chest x-ray. He also underwent a lumbar puncture that was apparentl y unremarkable. The patient was admitted for further evaluation and treatment. PHYSICAL EXAM: General: The patient is sleeping comfortably at time of evaluation but easily arousable. No acute d istress noted. Vitals: Temperature 38.4. Blood pressure 105/59. Heart rate 97. Pulse oximetry 97% on room air. Neck: Supple. CV: Irregularly irregular but non-tachycardic. Pulm: Mild right-sided rhonchorous breath sounds into upper lung roblero; otherwise clear to ausculta tion without any overt wheezing. Abdomen: Bowel sounds present. Soft, nontender, nondistended. Vascular: No lower extremity edema noted. LABS: Sodium 140, potassium 3.9, chloride 106, bicarb 22.9, BUN 12, creatinine 1.1, glucose 155. LF Ts with an AST of 154, ALT of 154, alkaline phosphatase of 164, all slightly worse than yesterday. T roponin is undetectable at <0.02. CBC with a white count of 12.85, hemoglobin of 10.8, and a platelet count of 158,000 with 81% neutrop hils, 8.1% lymphocytes, 10% monocytes. No bands noted. Microbiology with blood cultures, CSF fluid cultures, and urine culture are all pending at this time. Urinalysis with >100 protein, 15 ketones, negative for blood, nitrite, or leukocyte esterase, and 3-5 white blood cells noted. STUDIES: #1. Chest x-ray: New right upper lobe patchy densities suspicious for acute pneumonitis. Stable-ap pearing postoperative changes within the left hemithorax. #2. CT of the head: No acute intracranial abnormality demonstrated. #3. EKG: Atrial fibrillation, normal axis, ST segment depressions in V4 through V6, lead III and aV F, and ST segment flattening in V1 that are nonspecific in nature.
[2017-12-08] VITALS (15 sets, daily range): BP systolic 100–139; BP diastolic 68–82; PULSE 87–107; RESP 2–42; TEMP 34–38.5; O2SAT 87–100
[2017-12-08] MEDS: Albuterol/Ipratropium 3 ML UPD VIAL UPD ×3 (03:38→19:50)
[2017-12-08 07:47] LABS: ALT 114 U/L (12-78); AST 68 U/L (15-37); Albumin 2.2 g/dL (3.4-5.0); Alkaline Phosphatase 152 U/L (46-116); Anion Gap 11.9 mmol/L (3-11); BUN 9 mg/dL (7-18); CO2 22.1 mmol/L (21.0-32.0); CREATININE 0.98 mg/dL (0.70-1.30); Calcium 8.2 mg/dL (8.5-10.1); Chloride 107 mmol/L (98-107); Glucose 94 mg/dL (70-100); Potassium 3.6 mmol/L (3.5-5.1); Sodium 141 mmol/L (136-145); Total Protein 6.5 g/dL (6.4-8.2)
[2017-12-08 08:18] LABS: Abs Immature Grans 0.05 k/cumm (0.0-0.09); Absolute Basophil Count 0.02 k/cumm (0.0-0.2); Absolute Eosinophil Count 0.29 k/cumm (0.0-0.7); Absolute Lymphocyte Count 0.67 k/cumm (1.2-3.4); Absolute Monocyte Count 1.37 k/cumm (0.11-0.7); Absolute Neutrophil Count 9.61 k/cumm (1.2-6.7); Basophils % 0.2; Eosinophils % 2.4; HCT 26.2 % (40.0-50.0); HGB 9.1 g/dL (13.5-17.5); Immature Grans % 0.4; Lymphocytes % 5.6; Mean Corp. HGB Concentration 34.7 g/dL (32.0-36.0); Mean Corpuscular Hemoglobin 33.2 pg (27.0-33.0); Mean Corpuscular Volume 95.6 fL (80-95); Mean Platelet Volume 11.2 fL (8.0-11.0); Monocytes % 11.4; Platelet Count 136 x1000/uL (130-400); RBC 2.74 m/cumm (4.50-6.00); RBC Distribution Width 13.7 % (11.8-14.1); White Blood Cell Count 12.01 k/cumm (4.4-10.8)
[2017-12-08] MEDS: Omeprazole 20 MG CAPCR PO ×2 (08:31→19:42)
[2017-12-08] MEDS: Ibuprofen 600 MG TAB PO ×2 (08:31→19:42)
[2017-12-08] MEDS: Aspirin 81 MG CHEW PO (08:31)
[2017-12-08] MEDS: Apixaban 2.5 MG TAB PO ×2 (08:32→19:42)
[2017-12-08] MEDS: Metoprolol 12.5 MG TAB PO ×2 (08:32→19:42)
[2017-12-08] MEDS: LEVOFLOXACIN 750 MG/150 ML BAG 150 MG IVPB (08:32)
[2017-12-08] MEDS: Ascorbic Acid 500 MG TAB PO (08:32)
--- NOTE | 2017-12-08 10:28 | IN_ITS ---
INPATIENT PHYSICAL THERAPY EVALUATION Date: 12/08/17 Referring Doctor: Drake Braga PT Orders: PT Consult weakness Precautions: Fall precautions, Seizure precautions PATIENT PROFILE/ADMITTING DIAGNOSIS: Pt is a 62 yr old male admitted with pneumonia PMHX: seizure disorder, Hodgkin's disease, chronic anemia, panic attacks, atrial fibrillation, depression, lymphoma with left hemidiaphragm paralysis, Raynaud's disease, hypercholesteremia, retinal detachment, cardiac catheterization stents x2, bone marrow transplant, coronary disease Social History/Home Situation: Lives with and daughters in a house, 2 steps no railing to enter, can stay on one level inside of home, flight of stairs to basement but does not have to use them. Baseline mobility independent gait with no device, independent with ADLS. Reports he normally does his own shovelling, lawn work and wood management for wood stove. Per chart he is on disability. Equipment owned/DME: grab bars in bathroom SUBJECTIVE: Pt lying in bed states he is waiting for his to visit, agreeable to PT Consult. States he feels weak from hospitalization. OBJECTIVE: General Observation: IV R UE Mental Status: A& O x3 Pain: no c/o pain ROM: RUE: AROM WNL LUE AROM WNL RLE AROM WNL LLE AROM WNL STRENGTH: RUE 4/5 throughout LUE 4/5 throughout RLE 5/5 throughout LLE 5/5 throughout BED MOBILITY/TRANSFERS: Supine-sit: HOB 30 degrees independent Sit-stand SBA Stand-sit: SBA Sit-supine: HOB flat, independent GAIT: Sneakers donned for gait training, pt required Higinio to don/doff CGA with FWW 60ftx2. Pt shaky and weak with initial mobility so FWW used for gait stability. Pt able to mobilize with step through stride, steady vincent with use of FWW. Pt positioned back in bed with fall alarm activated after session completed. BALANCE: Static sitting normal Dynamic Sitting normal Static Standing fair Dynamic Standing fair SPECIAL TESTS: Mobility Limitations Standardized Measure [facility] AM -PAC 6 clicks Basic Mobility Inpatient Short Form: raw score: 18 standardized score: 43.63 CMS score: 46.58% CMS modifier: CK INFORMED CONSENT/EDUCATION: Pt instructed in purpose of PT Consult and plan of care ASSESSMENT: Pt is a 62 yr old male admitted with pneumonia in setting of seizure disorder, Hodgkin's disease, chronic anemia, panic attacks, atrial fibrillation, depression. Patient presents with the following impairment level findings: decreased strength with transfers, decreased strength with gait requiring FWW for gait stability to prevent falls, decreased static and dynamic standing balance due to weakness 2nd recent immobility. Pt will benefit from short therm therapy intervention for strengthening, balance training and progressive mobility training. He may benefit from FWW for gait stability in home setting if balance has not improve by discharge. Impairments are contributing to the following functional limitations: AMPAC score CMS score: 46.58% Patient is assessed as a * Moderate 52509 complexity based on the following: History: pneumonia:,seizure disorder, Hodgkin's disease, chronic anemia, panic attacks, atrial fibrillation, depression, Examination: decreased strength with transfers, decreased strength with gait requiring FWW for gait stability to prevent falls, decreased static and dynamic standing balance due to weakness 2nd recent immobility Presentation: evolving Decision Making: AMPAC score CMS score: 46.58% GOALS Goals x1 week 1. Supine-sit: independent 2. Sit-Supine: independent 3. Sit-Stand: supervision 4. Stand-sit supervision 5. Bed-chair supervision with FWW 6. Chair-bed supervision with FWW 7. Gait supervision with FWW [id number]. Stairs up/down 2 steps no railing. SBA PLAN OF CARE/TREATMENT PLAN: 1-2x/day, 7 days/ week x 1 week Plan of care has been reviewed with the [employer] providing the service under Physical therapy direction. Initiate physical therapy intervention for strengthening, bed mobility, transfers, gait, stairs, balance training, use of assistive device. DISCHARGE RECOMMENDATIONS Home, may benefit from FWW for gait stability TREATMENT TIME/MINUTES/CODES 27min IE 10:20 G Codes in the area mobility of walking and moving around: current status [id number] _CK projected status GP [id number] . Discharge status ( if discharging) GP [id number] oewkd on AMPAC score CMS score: 46.58 % Kriss Gimenez PT
--- NOTE | 2017-12-08 11:04 | PDOC.CMPRO ---
Care Management Progress Note S/O: eDjuan worked with PT today; per report-PT recommends FWW for gait stability if Dejuan's strength has not fully improved prior to discharge. CM met with Yasmani and Luana and allowed both to process the events leading up to Yasmani's admission at [facility]. Luana reported a sense of relief that the [facility] ED had diagnosed Yasmani's pneumonia quickly and she was already seeing some progress and energy returning as she shared she was increasingly worried about Yasmani's increased weakness. A: 62 year old male admitted to [facility] 12/06/17 for Pneumonia P: Dejuan will be evaluated by PT. He will return home when ready per MD. He will follow up with his PCP and plan of care as prescribed. If needed CM will coordinate prescription for FWW; CM will continue to follow. He will transport home via private vehicle with his , Luana.
[2017-12-08] MEDS: Normal Saline Flush 10 ML SYR IVP (11:10)
--- NOTE | 2017-12-08 11:20 | CMPROGNOTE_ITS ---
Care Management Progress Note S/O: Dejuan worked with PT today; per report-PT recommends FWW for gait stability if Dejuan's strength has not fully improved prior to discharge. CM met with Yasmani and Luana and allowed both to process the events leading up to Yasmani' s admission at [facility]. Luana reported a sense of relief that the [facility] ED had diagnosed Yasmani's pneumonia quickly and she was already seeing some progress and energy returning as she shared she was increasingly worried about Yasmani's increased weakness. A: 62 year old male admitted to [facility] 12/06/17 for Pneumonia P: Dejuan will be evaluated by PT. He will return home when ready per MD. He will follow up with his PCP and plan of care as prescribed. If needed CM will coordinate prescription for FWW; CM will continue to follow. He will transport home via private vehicle with his , Luana.
[2017-12-08] MEDS: Normal Saline 1,000 ML 100 ML IV (12:33)
--- NOTE | 2017-12-08 16:48 | PGE_ITS ---
December 08, 2017 ASSESSMENT/PLAN: 1) Weakness. Likely on the basis of underlying pneumonia. Continue to treat infe ction. Physical Therapy has been consulted as well. 2) Pneumonia. Evidence of infiltrate by CXR, with concurrent complaints of profound weakness. Mr. Cummings reports no recent prior history of antibiotic use, is not a resident at a nursing facility, and although hospitalized the day prior to his admission here, he was only in the hospital for less t lewis 24 hours. Currently on coverage for likely community acquired pneumonia with a respiratory fluoroquinolone, renate hnically day # 2 of antibiotic therapy today. Sputum culture appears to be contaminant. Blood cultu res are without growth and pending at this time. However, the patient appears to continue to have f damaso. Monitor symptoms closely through the day today and allow for an additional day of antibiotic coverage . If Mr. Cummings continues to be febrile, low threshold for broadening antibiotics coverage. Presley nue to monitor culture results as well. 2) Seizure disorder. Continue Keppra at home dosing. 3) Atrial fibrillation. Appears rate-controlled. Currently on Metoprolol and Apixaban, but Mr. Jeevan su' age, weight and creatinine indicate higher dosing need of his anticoagulation. Review of his medications from his outpatient electronic medical record reveals that the is indeed on Apixaban 2.5 mg b.i.d. Plan on discussion with Cardiology tomorrow as the patient sees Dr. Gigi anderson hronically to ensure that his dosing is appropriate, will consider increasing dose tomorrow. 4) Elevated liver function tests. Mild elevation in liver function tests in the setting of acute il lness, improving today. Continue hydration, treatment of pneumonia and monitor carefully. 5) Left hemidiaphragm paralysis - noted. 6) Chronic anemia. HGB with a mild drop with continued hydration. Continue to monitor. HGB at base line appears to be slightly higher than current values. Monitor closely. 7) Prophylaxis. Currently on Apixaban albeit a subtherapeutic dose. Continue proton pump inhibitor therapy and TEDS as well. SUBJECTIVE: 62-year-old pleasant man with a past medical history significant for coronary artery di sease, atrial fibrillation on anticoagulation, seizure disorder, prior history of Hodgkin's lymphoma admitted from [facility] Emergency Department with a 4-day history of we akness. Mr. Cummings was originally admitted to [facility] the evening prior to his admission here, with no specific findings to explain his weakness and was discharged home. He, however, on the same day of discharge presented to [facility] Emergency Department with progr essive symptoms, leading to further work-up in the Emergency Department which included lab work, CXR, head CT as well as a lumbar puncture. He was noted to have evidence of a right upper lobe infiltra te by CXR, as well as mild leukocytosis by lab work. He was administered IV fluids and admitted to the hospital for further evaluation and treatment. This morning, Mr. Cummings reports vast improvement in his overall symptoms. However, he continued t o have fevers overnight and early this morning, but subjectively feels better. He also continues to have leukocytosis, but subjectively feels better. Also continues to have leukocytosis, only mildly improved since admission. No other events reported. PHYSICAL EXAMINATION: General - the patient appears comfortable, lying in bed, no acute distress not ed. Vital signs - temperature currently 36.8, 37.7 earlier this morning, 38 degrees and febrile at 8:00 A M. The patient did have a T-Max of 38.4 at 4:00 PM yesterday. Blood pressure 105/70 with a systoli c range of 97-139. Heart rate is 87. Pulse oximetry is 97% on room air. Neck - supple. Cardiovascular - irregularly irregular and nontachycardic. Pulmonary - mild continued right-sided rhonchorous breath sounds, otherwise clear to auscultation wit hout any overt wheezing. Abdomen - bowel sounds present, soft, nontender, nondistended. Vascular - mild bilateral lower extremity edema noted. LABORATORY DATA: Basic metabolic panel essentially normal. Total bilirubin normalized at 1, down f rom 1.4 yesterday. AST and ALT of 68 and 114, down from values of 154 yesterday. Alkaline phosphata se minimally elevated at 152 and also improved from a value of 164 yesterday. CBC with a white count of 12.01, down from 12.85 yesterday and 13.06 at the time of admission, with 8 0% neutrophils, 5.6 lymphocytes, 11.4 monocytes. No bandemia noted. HGB continues to be low at 9.1, platelet count normal at 136. Blood cultures with no growth x 24 hours. Repeat blood cultures drawn yesterday afternoon are pendi ng at this time. CSF cultures with no growth x 48 hours. Urine culture with no growth x 24 hours. Sputum gram stain with many white blood cells, few epithelial cells, mixed gram positive and gram neg ative, non-predominant. This is indicative of oropharyngeal contamination.
--- NOTE | 2017-12-08 20:03 | PDOC.PROG ---
Date of Service: 12/08/17 Time of Service: 20:03 Assessment/Plan - Assessment/Plan (1) Pneumonia Assessment: worsening CAP; failure to respond to Levaquin therefore will treat this more like HCAP with broad spectrum antibiotics including Cefepime and Vancomcyin and give corticosteroids per Surviving Sepsis Protocol Plan: as above. also add BIPAP for respiratory support; if he fails this then he will need intubtion and mechanical ventilation. After receiving continuous albuterol treatment and receiving chest percussion by his nurse patient seemed to improve. Respiratory therapist placed him on high flow nasal cannula. ABG was checked and there is no CO2 retention and no acidosis and 2 L/min per nasal cannula seems to be meeting his oxygen needs. It is possible the patient may have had a mucous plug caused his respiratory extremis. Present time he is breathing much easier no longer tachypneic. Will monitor him closely if he deteriorates will place him on noninvasive positive pressure ventilation and arrange transferred to a critical care bed. History of Present Illness - History of Present Illness Chief Complaint: dyspnea History of Present Illness: 62 yr old male w/ PMH of afib who was admitted for CAP and begun on Levquin but has been slow to respond to antibiotics. tonght he developed acute dyspnea, tachypnea (42 BPM) and hypoxemia w/ SPO2 87% on RA.. He was given DuoNeb treatment but has failed to improve significantly. I have ordered repeat albuterol treatment for up to one hour, BIPAP and hydrocortisone 50 mg IVPB Q6hr and will repeat his CXR and check repeat blood cultures and lactate level. We do not have any ICU beds available so hopefully he will turn around with the above treatment. Review of Systems - Medications/Allergies Allergies/Adverse Reactions: Allergies Allergy/AdvReac Type Severity Reaction Status Date / Time amoxicillin Allergy Severe Unverified 12/06/17 16:52 potassium Allergy Severe ITCHING, Unverified 12/06/17 16:52 RASH silver Allergy Intermediate SKIN RASH Unverified 12/06/17 16:52 nickel Allergy Mild SKIN RASH Unverified 12/06/17 16:52 acetaminophen Allergy Unknown Unverified 12/06/17 16:52 Iodinated Contrast- Oral and Allergy Unknown Unverified 12/06/17 16:52 IV Dye copper [Copper] Allergy Unverified 12/06/17 16:52 pravastatin AdvReac Unknown MUSCLE Unverified 12/06/17 16:52 ACHES Medications: Current Medications Al Hydrox/Mg Hydrox/Simethicone (Mylanta Liquid) 30 ml PO Q2H PRN PRN Albuterol/Ipratropium (Duoneb Updraft) 3 ml UPD Q4H PRN PRN Last Admin: 12/08/17 19:50 Dose: 3 ml Apixaban (Eliquis) 2.5 mg PO BID [facility] Last Admin: 12/08/17 19:42 Dose: 2.5 mg Ascorbic Acid (Vitamin C) 500 mg PO DAILY [facility] Last Admin: 12/08/17 08:32 Dose: 500 mg Aspirin () 81 mg PO DAILY [facility] Last Admin: 12/08/17 08:31 Dose: 81 mg Albuterol Sulfate 100 mg/ (Sodium Chloride 40 ml) 0 mg UPD DIRECTED [facility] Dimethicone/Zinc Oxide (Nessa Protect Cream) 0 gm TP PRN PRN Docusate Sodium (Colace) 100 mg PO TID PRN PRN Hydrocortisone (Solu-Cortef) 50 mg IVP Q6H [facility] Sodium Chloride (Saline 1000ml Bag) 1,000 mls @ 100 mls/hr IV INFUSION [facility] Last Admin: 12/08/17 12:33 Dose: 100 mls/hr Vancomycin HCl 1,000 mg/ (Sodium Chloride) 250 mls @ 250 mls/hr IV Q12H [facility] PRN Reason: Protocol Cefepime HCl 2 gm/ Sodium (Chloride) 100 mls @ 200 mls/hr IVPB Q12H [facility] IV Miscellaneous Supplies () 1 each IV DIRECTED [facility] Ibuprofen (Motrin) 600 mg PO Q6H PRN PRN Reason: Fever Last Admin: 12/08/17 19:42 Dose: 600 mg Levetiracetam (Keppra) 250 mg PO BID [facility] Last Admin: 12/08/17 19:42 Dose: 250 mg Levetiracetam (Keppra) 1,000 mg PO BID [facility] Last Admin: 12/08/17 19:42 Dose: 1,000 mg Magnesium Hydroxide (Milk Of Magnesia) 30 ml PO DAILY PRN PRN Melatonin () 6 mg PO HS PRN PRN Metoprolol Tartrate (Lopressor) 12.5 mg PO BID [facility] Last Admin: 12/08/17 19:42 Dose: 12.5 mg Omeprazole (Prilosec) 20 mg PO BID [facility] Last Admin: 12/08/17 19:42 Dose: 20 mg Patient's Own Orajel 0 each PO PRN PRN PRN Reason: For tooth pain. Polyethylene Glycol (Miralax) 17 gm PO DAILY PRN PRN PRN Reason: Constipation Simvastatin (Zocor) 20 mg PO [facility] Last Admin: 12/07/17 21:24 Dose: 20 mg Sodium Chloride (Saline Flush 10 Ml Syringe) 0 ml IVP PRN PRN Last Admin: 12/08/17 11:10 Dose: 20 ml Objective - Exam Vitals and I&O: Vital Signs Temp 36.3 C L 12/08/17 15:15 Pulse 103 H 12/08/17 19:40 Resp 42 H 12/08/17 19:40 BP 110/73 12/08/17 15:15 Pulse Ox 87 L 12/08/17 19:40 Intake & Output 12/07/17 12/08/17 12/08/17 23:59 11:59 23:59 Intake Total 2123 910 1886 Output Total 600 300 900 Balance 1523 610 986 Intake: IV 1443 20 1786 Oral 680 890 100 Output: Urine 600 300 900 Other: Urine Color Yellow Yellow Light Veronica Dark Veronica Urine Appearance Clear Clear Clear Urine Odor None Strong Normal Comment concentrated, encouraging PO fluid intake Stool Size Moderate Moderate Stool Characteristics Soft Soft Brown Brown Voiding Methods Urinal Urinal Urinal General: Alert, Oriented x3, Moderate distress (using accessory muscles and acutely dyspneic and tachypneic) Neck: Other (using accessory respiratory muscles) Lungs: Other (coarse wheezing and rhonchi L>R) Cardiovascular: Other (tachycardic and irregular) - Results Results: Laboratory Results WBC 12.01 k/cumm (4.4-10.8) H 12/08/17 06:40 RBC 2.74 m/cumm (4.50-6.00) L 12/08/17 06:40 Hgb 9.1 g/dL (13.5-17.5) L 12/08/17 06:40 Hct 26.2 % (40.0-50.0) L 12/08/17 06:40 MCV 95.6 fL (80-95) H 12/08/17 06:40 MCH 33.2 pg (27.0-33.0) H 12/08/17 06:40 MCHC 34.7 g/dL (32.0-36.0) 12/08/17 06:40 RDW 13.7 % (11.8-14.1) 12/08/17 06:40 Plt Count 136 x1000/uL (130-400) 12/08/17 06:40 MPV 11.2 fL (8.0-11.0) H 12/08/17 06:40 Abs Immat Gran (auto) Cancelled 12/06/17 17:00 Immature Gran % 0.4 12/08/17 06:40 Neutrophils % 80.0 12/08/17 06:40 Lymphocytes % 5.6 12/08/17 06:40 Monocytes % 11.4 12/08/17 06:40 Eosinophils % 2.4 12/08/17 06:40 Basophils % 0.2 12/08/17 06:40 Absolute Neutrophils 9.61 k/cumm (1.2-6.7) H 12/08/17 06:40 Band Neutrophils Cancelled 12/06/17 17:00 Absolute Lymphocytes 0.67 k/cumm (1.2-3.4) L 12/08/17 06:40 Absolute Monocytes 1.37 k/cumm (0.11-0.7) H 12/08/17 06:40 Absolute Eosinophils 0.29 k/cumm (0.0-0.7) 12/08/17 06:40 Absolute Basophils 0.02 k/cumm (0.0-0.2) 12/08/17 06:40 Metamyelocytes Cancelled 12/06/17 17:00 Myelocytes Cancelled 12/06/17 17:00 Promyelocytes Cancelled 12/06/17 17:00 Nucleated RBCs Cancelled 12/06/17 17:00 Differential Comment Diff reviewed 12/06/17 18:30 Atypical Lymphocytes Cancelled 12/06/17 17:00 Other Cell Type Cancelled 12/06/17 17:00 RBC Morphology Cancelled 12/06/17 17:00 Polychromasia Cancelled 12/06/17 17:00 Hypochromasia Cancelled 12/06/17 17:00 Xanthochromia Absent 12/06/17 19:30 Poikilocytosis Cancelled 12/06/17 17:00 Basophilic Stippling Cancelled 12/06/17 17:00 Anisocytosis Cancelled 12/06/17 17:00 Microcytosis Cancelled 12/06/17 17:00 Macrocytosis Cancelled 12/06/17 17:00 Spherocytes Cancelled 12/06/17 17:00 Target Cells Cancelled 12/06/17 17:00 Tear Drop Cells Cancelled 12/06/17 17:00 Ovalocytes Cancelled 12/06/17 17:00 Stomatocytes Cancelled 12/06/17 17:00 Armstrong-Minerva Bodies Cancelled 12/06/17 17:00 [place] Cells Cancelled 12/06/17 17:00 Acanthocytes (Spur) Cancelled 12/06/17 17:00 Schistocytes Cancelled 12/06/17 17:00 Sodium 141 mmol/L (136-145) 12/08/17 06:40 Potassium 3.6 mmol/L (3.5-5.1) 12/08/17 06:40 Chloride 107 mmol/L (98-107) 12/08/17 06:40 Carbon Dioxide 22.1 mmol/L (21.0-32.0) 12/08/17 06:40 Anion Gap 11.9 mmol/L (3-11) H 12/08/17 06:40 BUN 9 mg/dL (7-18) 12/08/17 06:40 Creatinine 0.98 mg/dL (0.70-1.30) 12/08/17 06:40 Estimated GFR/1.73 m2 >= 60.00 (mL/min/1.73m2) 12/08/17 06:40 Glucose 94 mg/dL (70-100) D 12/08/17 06:40 Lactate 0.9 mmol/L (0.6-1.4) 12/06/17 18:30 Calcium 8.2 mg/dL (8.5-10.1) L 12/08/17 06:40 Magnesium 2.1 mg/dL (1.8-2.4) 12/06/17 18:30 Total Bilirubin 1.0 mg/dL (0.2-1.0) 12/08/17 06:40 AST 68 U/L (15-37) H 12/08/17 06:40 ALT 114 U/L (12-78) H 12/08/17 06:40 Alkaline Phosphatase 152 U/L (46-116) H 12/08/17 06:40 Troponin I < 0.02 ng/mL (0.00-0.06) 12/06/17 18:30 Total Protein 6.5 g/dL (6.4-8.2) 12/08/17 06:40 Albumin 2.2 g/dL (3.4-5.0) L 12/08/17 06:40 Urine Color Yellow (Yellow) 12/07/17 11:50 Urine Clarity Sl cloudy 12/07/17 11:50 Urine pH 5.5 (5-8) 12/07/17 11:50 Ur Specific Shushan >= 1.030 (1.005-1.025) H 12/07/17 11:50 Urine Protein 100 mg/dL (Negative) H 12/07/17 11:50 Urine Ketones 15 mg/dL (Negative) H 12/07/17 11:50 Urine Blood Negative (Negative) 12/07/17 11:50 Urine Nitrite Negative (Negative) 12/07/17 11:50 Urine Bilirubin Small (Negative) H 12/07/17 11:50 Urine Urobilinogen 4.0 EU/dL (Up TO 0.2) H 12/07/17 11:50 Ur Leukocyte Esterase Negative (Negative) 12/07/17 11:50 Urine RBC Negative (0-2) 12/07/17 11:50 Urine WBC 3-5 HPF (0-5) 12/07/17 11:50 Ur Epithelial Cells Rare HPF (Negative) 12/07/17 11:50 Urine Crystals Negative HPF (Negative) 12/07/17 11:50 Urine Bacteria Many HPF (Negative) 12/07/17 11:50 Urine Casts 3-5 coarse granular LPF (Negative) 12/07/17 11:50 Urine Mucus Moderate (Negative) 12/07/17 11:50 Urine Other Negative (Negative) 12/07/17 11:50 Ur Culture Indicated? Yes 12/07/17 11:50 Urine Glucose Negative mg/dL (Negative) 12/07/17 11:50 CSF Tube Number 4 12/06/17 19:30 CSF Color Colorless 12/06/17 19:30 CSF Clarity Clear 12/06/17 19:30 CSF WBC 1 /mm3 (0-5) 12/06/17 19:30 CSF RBC 2 /mm3 (0-5) 12/06/17 19:30 CSF Neutrophils 0 % (0-2) 12/06/17 19:30 CSF Lymphocytes 65 % (63-99) 12/06/17 19:30 CSF Monos/Macrophages 35 % (3-37) 12/06/17 19:30 CSF Other Cells 0 % (0-0) 12/06/17 19:30 CSF Diff Comment Performed 12/06/17 19:30 CSF Glucose 82 mg/dL (40-70) H 12/06/17 19:30 CSF Total Protein 31 mg/dL (15-45) 12/06/17 19:30
[2017-12-08 20:04] LABS: HCO3 19 mmol/L (22-28); pCO2 29 mmHg (34-47); pH 7.43 (7.35-7.45); pO2 170 mmHg (83-108)
[2017-12-08 20:06] LABS: Site Right Radial
[2017-12-08 20:09] LABS: sO2 < 5 % (94-98)
--- NOTE | 2017-12-08 20:09 | PDOC.PROG_ITS ---
Date of Service: 12/08/17 Time of Service: 20:03 Assessment/Plan - Assessment/Plan (1) Pneumonia Assessment: worsening CAP; failure to respond to Levaquin therefore will treat this more like HCAP with broad spectrum antibiotics including Cefepime and Vancomcyin and give corticosteroids per Surviving Sepsis Protocol Plan: as above. also add BIPAP for respiratory support; if he fails this then he will need intubtion and mechanical ventilation. After receiving continuous albuterol treatment and receiving chest percussion by his nurse patient seemed to improve. Respiratory therapist placed him on high flow nasal cannula. ABG was checked and there is no CO2 retention and no acidosis and 2 L/min per nasal cannula seems to be meeting his oxygen needs. It is possible the patient may have had a mucous plug caused his respiratory extremis. Present time he is breathing much easier no longer tachypneic. Will monitor him closely if he deteriorates will place him on noninvasive positive pressure ventilation and arrange transferred to a critical care bed. History of Present Illness - History of Present Illness Chief Complaint: dyspnea History of Present Illness: 62 yr old male w/ PMH of afib who was admitted for CAP and begun on Levquin but has been slow to respond to antibiotics. tonght he developed acute dyspnea, tachypnea (42 BPM) and hypoxemia w/ SPO2 87% on RA.. He was given DuoNeb treatment but has failed to improve significantly. I have ordered repeat albuterol treatment for up to one hour, BIPAP and hydrocortisone 50 mg IVPB Q6hr and will repeat his CXR and check repeat blood cultures and lactate level. We do not have any ICU beds available so hopefully he will turn around with the above treatment. Review of Systems - Medications/Allergies Allergies/Adverse Reactions: Allergies Allergy/AdvReac Type Severity Reaction Status Date / Time amoxicillin Allergy Severe Unverified 12/06/17 16:52 potassium Allergy Severe ITCHING, Unverified 12/06/17 16:52 RASH silver Allergy Intermediate SKIN RASH Unverified 12/06/17 16:52 nickel Allergy Mild SKIN RASH Unverified 12/06/17 16:52 acetaminophen Allergy Unknown Unverified 12/06/17 16:52 Iodinated Contrast- Oral and Allergy Unknown Unverified 12/06/17 16:52 IV Dye copper [Copper] Allergy Unverified 12/06/17 16:52 pravastatin AdvReac Unknown MUSCLE Unverified 12/06/17 16:52 ACHES Medications: Current Medications Al Hydrox/Mg Hydrox/Simethicone (Mylanta Liquid) 30 ml PO Q2H PRN PRN Albuterol/Ipratropium (Duoneb Updraft) 3 ml UPD Q4H PRN PRN Last Admin: 12/08/17 19:50 Dose: 3 ml Apixaban (Eliquis) 2.5 mg PO BID [facility] Last Admin: 12/08/17 19:42 Dose: 2.5 mg Ascorbic Acid (Vitamin C) 500 mg PO DAILY [facility] Last Admin: 12/08/17 08:32 Dose: 500 mg Aspirin () 81 mg PO DAILY [facility] Last Admin: 12/08/17 08:31 Dose: 81 mg Albuterol Sulfate 100 mg/ (Sodium Chloride 40 ml) 0 mg UPD DIRECTED [facility] Dimethicone/Zinc Oxide (Nessa Protect Cream) 0 gm TP PRN PRN Docusate Sodium (Colace) 100 mg PO TID PRN PRN Hydrocortisone (Solu-Cortef) 50 mg IVP Q6H [facility] Sodium Chloride (Saline 1000ml Bag) 1,000 mls @ 100 mls/hr IV INFUSION [facility] Last Admin: 12/08/17 12:33 Dose: 100 mls/hr Vancomycin HCl 1,000 mg/ (Sodium Chloride) 250 mls @ 250 mls/hr IV Q12H [facility] PRN Reason: Protocol Cefepime HCl 2 gm/ Sodium (Chloride) 100 mls @ 200 mls/hr IVPB Q12H [facility] IV Miscellaneous Supplies () 1 each IV DIRECTED [facility] Ibuprofen (Motrin) 600 mg PO Q6H PRN PRN Reason: Fever Last Admin: 12/08/17 19:42 Dose: 600 mg Levetiracetam (Keppra) 250 mg PO BID [facility] Last Admin: 12/08/17 19:42 Dose: 250 mg Levetiracetam (Keppra) 1,000 mg PO BID [facility] Last Admin: 12/08/17 19:42 Dose: 1,000 mg Magnesium Hydroxide (Milk Of Magnesia) 30 ml PO DAILY PRN PRN Melatonin () 6 mg PO HS PRN PRN Metoprolol Tartrate (Lopressor) 12.5 mg PO BID [facility] Last Admin: 12/08/17 19:42 Dose: 12.5 mg Omeprazole (Prilosec) 20 mg PO BID [facility] Last Admin: 12/08/17 19:42 Dose: 20 mg Patient's Own Orajel 0 each PO PRN PRN PRN Reason: For tooth pain. Polyethylene Glycol (Miralax) 17 gm PO DAILY PRN PRN PRN Reason: Constipation Simvastatin (Zocor) 20 mg PO [facility] Last Admin: 12/07/17 21:24 Dose: 20 mg Sodium Chloride (Saline Flush 10 Ml Syringe) 0 ml IVP PRN PRN Last Admin: 12/08/17 11:10 Dose: 20 ml Objective - Exam Vitals and I&O: Vital Signs Temp 36.3 C L 12/08/17 15:15 Pulse 103 H 12/08/17 19:40 Resp 42 H 12/08/17 19:40 BP 110/73 12/08/17 15:15 Pulse Ox 87 L 12/08/17 19:40 Intake & Output 12/07/17 12/08/17 12/08/17 23:59 11:59 23:59 Intake Total 2123 910 1886 Output Total 600 300 900 Balance 1523 610 986 Intake: IV 1443 20 1786 Oral 680 890 100 Output: Urine 600 300 900 Other: Urine Color Yellow Yellow Light Veronica Dark Veronica Urine Appearance Clear Clear Clear Urine Odor None Strong Normal Comment concentrated, encouraging PO fluid intake Stool Size Moderate Moderate Stool Characteristics Soft Soft Brown Brown Voiding Methods Urinal Urinal Urinal General: Alert, Oriented x3, Moderate distress (using accessory muscles and acutely dyspneic and tachypneic) Neck: Other (using accessory respiratory muscles) Lungs: Other (coarse wheezing and rhonchi L>R) Cardiovascular: Other (tachycardic and irregular) - Results Results: Laboratory Results WBC 12.01 k/cumm (4.4-10.8) H 12/08/17 06:40 RBC 2.74 m/cumm (4.50-6.00) L 12/08/17 06:40 Hgb 9.1 g/dL (13.5-17.5) L 12/08/17 06:40 Hct 26.2 % (40.0-50.0) L 12/08/17 06:40 MCV 95.6 fL (80-95) H 12/08/17 06:40 MCH 33.2 pg (27.0-33.0) H 12/08/17 06:40 MCHC 34.7 g/dL (32.0-36.0) 12/08/17 06:40 RDW 13.7 % (11.8-14.1) 12/08/17 06:40 Plt Count 136 x1000/uL (130-400) 12/08/17 06:40 MPV 11.2 fL (8.0-11.0) H 12/08/17 06:40 Abs Immat Gran (auto) Cancelled 12/06/17 17:00 Immature Gran % 0.4 12/08/17 06:40 Neutrophils % 80.0 12/08/17 06:40 Lymphocytes % 5.6 12/08/17 06:40 Monocytes % 11.4 12/08/17 06:40 Eosinophils % 2.4 12/08/17 06:40 Basophils % 0.2 12/08/17 06:40 Absolute Neutrophils 9.61 k/cumm (1.2-6.7) H 12/08/17 06:40 Band Neutrophils Cancelled 12/06/17 17:00 Absolute Lymphocytes 0.67 k/cumm (1.2-3.4) L 12/08/17 06:40 Absolute Monocytes 1.37 k/cumm (0.11-0.7) H 12/08/17 06:40 Absolute Eosinophils 0.29 k/cumm (0.0-0.7) 12/08/17 06:40 Absolute Basophils 0.02 k/cumm (0.0-0.2) 12/08/17 06:40 Metamyelocytes Cancelled 12/06/17 17:00 Myelocytes Cancelled 12/06/17 17:00 Promyelocytes Cancelled 12/06/17 17:00 Nucleated RBCs Cancelled 12/06/17 17:00 Differential Comment Diff reviewed 12/06/17 18:30 Atypical Lymphocytes Cancelled 12/06/17 17:00 Other Cell Type Cancelled 12/06/17 17:00 RBC Morphology Cancelled 12/06/17 17:00 Polychromasia Cancelled 12/06/17 17:00 Hypochromasia Cancelled 12/06/17 17:00 Xanthochromia Absent 12/06/17 19:30 Poikilocytosis Cancelled 12/06/17 17:00 Basophilic Stippling Cancelled 12/06/17 17:00 Anisocytosis Cancelled 12/06/17 17:00 Microcytosis Cancelled 12/06/17 17:00 Macrocytosis Cancelled 12/06/17 17:00 Spherocytes Cancelled 12/06/17 17:00 Target Cells Cancelled 12/06/17 17:00 Tear Drop Cells Cancelled 12/06/17 17:00 Ovalocytes Cancelled 12/06/17 17:00 Stomatocytes Cancelled 12/06/17 17:00 Armstrong-Simpson Bodies Cancelled 12/06/17 17:00 [place] Cells Cancelled 12/06/17 17:00 Acanthocytes (Spur) Cancelled 12/06/17 17:00 Schistocytes Cancelled 12/06/17 17:00 Sodium 141 mmol/L (136-145) 12/08/17 06:40 Potassium 3.6 mmol/L (3.5-5.1) 12/08/17 06:40 Chloride 107 mmol/L (98-107) 12/08/17 06:40 Carbon Dioxide 22.1 mmol/L (21.0-32.0) 12/08/17 06:40 Anion Gap 11.9 mmol/L (3-11) H 12/08/17 06:40 BUN 9 mg/dL (7-18) 12/08/17 06:40 Creatinine 0.98 mg/dL (0.70-1.30) 12/08/17 06:40 Estimated GFR/1.73 m2 >= 60.00 (mL/min/1.73m2) 12/08/17 06:40 Glucose 94 mg/dL (70-100) D 12/08/17 06:40 Lactate 0.9 mmol/L (0.6-1.4) 12/06/17 18:30 Calcium 8.2 mg/dL (8.5-10.1) L 12/08/17 06:40 Magnesium 2.1 mg/dL (1.8-2.4) 12/06/17 18:30 Total Bilirubin 1.0 mg/dL (0.2-1.0) 12/08/17 06:40 AST 68 U/L (15-37) H 12/08/17 06:40 ALT 114 U/L (12-78) H 12/08/17 06:40 Alkaline Phosphatase 152 U/L (46-116) H 12/08/17 06:40 Troponin I < 0.02 ng/mL (0.00-0.06) 12/06/17 18:30 Total Protein 6.5 g/dL (6.4-8.2) 12/08/17 06:40 Albumin 2.2 g/dL (3.4-5.0) L 12/08/17 06:40 Urine Color Yellow (Yellow) 12/07/17 11:50 Urine Clarity Sl cloudy 12/07/17 11:50 Urine pH 5.5 (5-8) 12/07/17 11:50 Ur Specific [place] >= 1.030 (1.005-1.025) H 12/07/17 11:50 Urine Protein 100 mg/dL (Negative) H 12/07/17 11:50 Urine Ketones 15 mg/dL (Negative) H 12/07/17 11:50 Urine Blood Negative (Negative) 12/07/17 11:50 Urine Nitrite Negative (Negative) 12/07/17 11:50 Urine Bilirubin Small (Negative) H 12/07/17 11:50 Urine Urobilinogen 4.0 EU/dL (Up TO 0.2) H 12/07/17 11:50 Ur Leukocyte Esterase Negative (Negative) 12/07/17 11:50 Urine RBC Negative (0-2) 12/07/17 11:50 Urine WBC 3-5 HPF (0-5) 12/07/17 11:50 Ur Epithelial Cells Rare HPF (Negative) 12/07/17 11:50 Urine Crystals Negative HPF (Negative) 12/07/17 11:50 Urine Bacteria Many HPF (Negative) 12/07/17 11:50 Urine Casts 3-5 coarse granular LPF (Negative) 12/07/17 11:50 Urine Mucus Moderate (Negative) 12/07/17 11:50 Urine Other Negative (Negative) 12/07/17 11:50 Ur Culture Indicated? Yes 12/07/17 11:50 Urine Glucose Negative mg/dL (Negative) 12/07/17 11:50 CSF Tube Number 4 12/06/17 19:30 CSF Color Colorless 12/06/17 19:30 CSF Clarity Clear 12/06/17 19:30 CSF WBC 1 /mm3 (0-5) 12/06/17 19:30 CSF RBC 2 /mm3 (0-5) 12/06/17 19:30 CSF Neutrophils 0 % (0-2) 12/06/17 19:30 CSF Lymphocytes 65 % (63-99) 12/06/17 19:30 CSF Monos/Macrophages 35 % (3-37) 12/06/17 19:30 CSF Other Cells 0 % (0-0) 12/06/17 19:30 CSF Diff Comment Performed 12/06/17 19:30 CSF Glucose 82 mg/dL (40-70) H 12/06/17 19:30 CSF Total Protein 31 mg/dL (15-45) 12/06/17 19:30
[2017-12-08 20:10] LABS: Lactate-non-spesis 0.9 mmol/L (0.6-1.4)
--- NOTE | 2017-12-08 20:20 | DI.REPORT_ITS ---
SYMPTOM/DIAGNOSIS: PNEUMONIA, CAD AP AND LATERAL CHEST: Note is made of a previous left upper lobectomy. Left lung unchanged in appearance from previous examinations including 03/22/14. On the right, there is increasing radiodensity in the apex suggesting developing pneumonia with interval worsening since 12/06/17. Otherwise right lung is clear. No gross pleural effusion is seen. CONCLUSION: Findings consistent with worsening right upper lobe pneumonia.
--- NOTE | 2017-12-08 21:06 | DI.VRAD_ITS ---
EXAM: XR Chest, 2 Views EXAM DATE/TIME: 12/08/2017 7:38 PM CLINICAL HISTORY: 62 years old, male; Signs and symptoms; Shortness of breath and other: Pneumonia; Patient HX: Cad, seizure disorder, left hemidiaphragm paralysis. Pneumonia TECHNIQUE: XR of the chest, 2 views. COMPARISON: CR - CHEST 2 VIEWS PA,LAT 2017-12-06 17:53 FINDINGS: There is elevation of the left hemidiaphragm. There is atelectasis in the left lung base. There may be some mild infiltrate in the left lung apex. There is a left pleural effusion. Right lung is clear. There is no pneumothorax. The heart size is stable. Overall, there has been no significant interval change. IMPRESSION: Stable appearance of the chest. Dictated and Authenticated by: Lul Clements MD. Ordering:[facility] AARON DALY MD
[2017-12-08] MEDS: Hydrocortisone SOD SUC. 100 MG VIAL 50 MG IVP (22:37)
[2017-12-08] MEDS: Furosemide 20 MG/2 ML VIAL IVP (22:37)
[2017-12-08] MEDS: VANCOMYCIN 1,000 MG in Normal Saline 250 ML 250 MG IV (22:38)
[2017-12-08] MEDS: Simvastatin 20 MG TAB PO (22:38)
[2017-12-08] MEDS: CEFEPIME 2 GM in Normal Saline 100 ML IVPB (23:56)
[2017-12-09] VITALS (16 sets, daily range): BP systolic 114–132; BP diastolic 71–85; PULSE 55–166; RESP 1–36; TEMP 36.2–36.8; O2SAT 96–100
[2017-12-09] MEDS: Hydrocortisone SOD SUC. 100 MG VIAL 50 MG IVP ×4 (02:19→20:22)
[2017-12-09 06:56] LABS: Abs Immature Grans 0.02 k/cumm (0.0-0.09); Absolute Basophil Count 0.01 k/cumm (0.0-0.2); Absolute Eosinophil Count 0.01 k/cumm (0.0-0.7); Absolute Lymphocyte Count 0.51 k/cumm (1.2-3.4); Absolute Monocyte Count 0.32 k/cumm (0.11-0.7); Absolute Neutrophil Count 8.02 k/cumm (1.2-6.7); Basophils % 0.1; Eosinophils % 0.1; HCT 28.4 % (40.0-50.0); HGB 9.6 g/dL (13.5-17.5); Immature Grans % 0.2; Lymphocytes % 5.7; Mean Corp. HGB Concentration 33.8 g/dL (32.0-36.0); Mean Corpuscular Hemoglobin 32.9 pg (27.0-33.0); Mean Corpuscular Volume 97.3 fL (80-95); Mean Platelet Volume 10.2 fL (8.0-11.0); Monocytes % 3.6; Neutrophils % 90.3; Platelet Count 173 x1000/uL (130-400); RBC 2.92 m/cumm (4.50-6.00); RBC Distribution Width 13.6 % (11.8-14.1); White Blood Cell Count 8.89 k/cumm (4.4-10.8)
[2017-12-09] MEDS: Albuterol/Ipratropium 3 ML UPD VIAL UPD ×2 (07:10→13:19)
[2017-12-09 07:18] LABS: ALT 96 U/L (12-78); AST 44 U/L (15-37); Albumin 2.1 g/dL (3.4-5.0); Alkaline Phosphatase 147 U/L (46-116); Anion Gap 12.6 mmol/L (3-11); Bilirubin, Total 0.7 mg/dL (0.2-1.0); CO2 21.4 mmol/L (21.0-32.0); CREATININE 0.99 mg/dL (0.70-1.30); Calcium 8.1 mg/dL (8.5-10.1); Chloride 109 mmol/L (98-107); Glucose 155 mg/dL (70-100); Potassium 3.7 mmol/L (3.5-5.1); Sodium 143 mmol/L (136-145); Total Protein 6.4 g/dL (6.4-8.2)
[2017-12-09 07:40] LABS: BUN 12 mg/dL (7-18)
--- NOTE | 2017-12-09 08:02 | INPTTR_ITS ---
PHYSICAL THERAPY PROGRESS NOTE Date: 12/09/17 PRECAUTIONS: Fall precautions SUBJECTIVE: Pt states he is feeling better this morning than he did last night, reports he was sitting at the edge of the bed earlier this morning, he is eager to participate in therapy sessions. I used to run 26 mile marathons, exercise is so important.. OBJECTIVE PAIN: no c/o pain BED MOBILITY/TRANSFERS Supine-sit: independent Sit-stand: SBA with FWW Stand-sit: SBA Bed-Chair: CGA with FWW GAIT * recommend sneakers for gait mobility Assistive Device FWW Weightbearing full Assist: CGA Distance: Stood at edge of bed for standing exercises, then gait trained 3ft in room, on Airvo2 40 liters/min Deviation Step through gait with decreased stride and vincent. No shortness of breath with exertion on Airvo 2 THEREX: Performed seated ankle pumps, long arc quads and hip flexion x 20 reps, standing hip flexion and heel raises x 10 reps ASSESSMENT: Pt able to participate in sitting and standing therapeutic exercise this morning, limited gait in room standing at bedside and transfers to chair for breakfast. Will continue to progress as able. PLAN: Progress strengthening Progress gait mobility TREATMENT CODES/TIME: 24min TAx1 TP x1 8am Kriss Gimenez PT
[2017-12-09] MEDS: Omeprazole 20 MG CAPCR PO ×2 (08:17→20:23)
[2017-12-09] MEDS: Ascorbic Acid 500 MG TAB PO (08:18)
[2017-12-09] MEDS: Aspirin 81 MG CHEW PO (08:18)
[2017-12-09] MEDS: Apixaban 2.5 MG TAB PO (08:18)
[2017-12-09] MEDS: Normal Saline Flush 10 ML SYR IVP ×2 (08:19→15:04)
[2017-12-09] MEDS: POTASSIUM CHLORIDE 20 MEQ, POTASSIUM CHLORIDE 10 MEQ 30 MEQ PO (10:50)
[2017-12-09] MEDS: CEFEPIME 2 GM in Normal Saline 100 ML IVPB ×2 (10:51→22:32)
--- NOTE | 2017-12-09 11:11 | INPTTR_ITS ---
PHYSICAL THERAPY PROGRESS NOTE Date: 12/09/17 PRECAUTIONS: Fall precautions SUBJECTIVE: Pt sitting in chair visiting with , states he feels good. Reports no shortness of breath or difficulty breathing, on room air. OBJECTIVE PAIN: no c/o pain BED MOBILITY/TRANSFERS Sit-stand: SBA with FWW Stand-sit: SBA GAIT * recommend sneakers for gait mobility Assistive Device FWW, IV L UE Weightbearing full Assist: SBA Distance: 60ftx2, slow steady step through gait pattern. Pt instructed in pacing and energy conservation techniques with gait to monitor breathing, pt on room air did not experience shortness of breath with exertion. Returned to room and up in chair. THEREX: Performed seated ankle pumps, long arc quads and hip flexion x 20 reps ASSESSMENT: Increased gait distance and improved gait mobility, requiring FWW for stability and energy conservation at this time, he has a FWW at home he can use. Should continue to improve with strength and mobility with continued therapy intervention. PLAN: Progress strengthening Progress gait mobility TREATMENT CODES/TIME: 27min TAx1 TP x1 11:04 Kriss Gimenez PT
--- NOTE | 2017-12-09 11:16 | PDOC.CMPRO ---
Care Management Progress Note S/O: Dejuan continues to be treated for IV ABX, and Dr. Braga reports adding additional IV ABX coverage as Dejuan's respiratory status decreased and he was febrile yesterday. Dejuan is sitting in his chair this morning, Luana at his bedside. He states he is already feeling better and reports he had a good session with PT this morning. CM spoke with Luana who shared frustration at Yasmani not receiving her phone calls, she is struggling with her own chronic pain and was unable to make the trip in to see him yesterday. CM switched out the phone in Yasmani's room as the ringer was not loud enough for Yasmani to hear. CM reviewed contact information for support over the weekend if Yasmani or Luana require additional support. A: 62 year old male admitted to [facility] 12/06/17 for Pneumonia P: Dejuan will continue to work with PT. He will return home when ready per MD with no additional services or equipment anticipated at this time. He will follow up with his PCP and plan of care as prescribed. He will transport home via private vehicle with his , Luana.
[2017-12-09] MEDS: VANCOMYCIN 1,250 MG in Normal Saline 250 ML 166.667 MG IV ×2 (11:53→22:48)
--- NOTE | 2017-12-09 12:30 | CMPROGNOTE_ITS ---
Care Management Progress Note S/O: Deujan continues to be treated for IV ABX, and Dr. Braga reports adding additional IV ABX coverage as Dejuan's respiratory status decreased and he was febrile yesterday. Dejuan is sitting in his chair this morning, Luana at his bedside. He states he is already feeling better and reports he had a good session with PT this morning. CM spoke with Luana who shared frustration at Yasmani not receiving her phone calls, she is struggling with her own chronic pain and was unable to make the trip in to see him yesterday. CM switched out the phone in Yasmani's room as the ringer was not loud enough for Yasmani to hear. CM reviewed contact information for support over the weekend if Yasmani or Luana require additional support. A: 62 year old male admitted to [facility] 12/06/17 for Pneumonia P: Dejuan will continue to work with PT. He will return home when ready per MD with no additional services or equipment anticipated at this time. He will follow up with his PCP and plan of care as prescribed. He will transport home via private vehicle with his , Luana.
--- NOTE | 2017-12-09 15:16 | PGE_ITS ---
DATE OF SERVICE: December 09, 2017 ASSESSMENT/PLAN: 1) Weakness. Likely on the basis of underlying pneumonia. Continue to treat infe ction. Hydrate and continue Physical Therapy. 2) Pneumonia. Evidence of infiltrate by CXR, with concurrent complaints of profound weakness. The p atient also had a mild leukocytosis and has had continuous fevers. CXR performed last night shows evidence of worsening infiltrate despite 2 full days of antibiotic the rapy with IV Levofloxacin. Unfortunately, no data to guide antimicrobial coverage. Initial sputum culture showed growth of orop haryngeal organisms only and blood culture remains negative. Given continued fevers and worsening r espiratory status, the patient was broadened from an antibiotic perspective. Continue Vancomycin and Cefepime, now day # 1. Continue to monitor blood cultures as well. Given the patient's history of atrial fibrillation, he will be maintained on telemetry as well. 3) Atrial fibrillation. Appears mostly rate-controlled, although mildly tachycardic currently. Cont inue Metoprolol. Of note, the patient's Apixaban dose was noted to be subtherapeutic. Discussion with Cardiology revea led no reason for maintaining the patient at a low Apixaban dosing and medication interaction check f mario to show a reason for low-dosing as well. Will increase to 5 mg b.i.d. at this time. 4) Seizure disorder. Continue Keppra at home dosing. 5) Elevated liver function tests. Mild elevation in liver function tests in a setting of acute illn ess, with continued improvement noted today. Continue hydration, treatment of pneumonia and monitor carefully. 6) Left hemidiaphragm paralysis - noted. 7) Chronic anemia. HGB appears stable today. Continue to monitor. 8) Prophylaxis. Continue now-therapeutic dosing of Apixaban, currently on proton pump inhibitor the rapy as well. 9) CODE STATUS. FULL CODE. Greater than 30 minutes were spent on coordination of today's care. SUBJECTIVE: Very pleasant 62-year-old man with a past medical history significant for coronary art radha disease, atrial fibrillation on anticoagulation, seizure disorder and prior history of Hodgkin's lymphoma, admitted from [facility] Emergency Department with a 4-day hist ory of weakness. Mr. Cummings was originally admitted to [facility] the evening prior to admission here, wit h no findings to explain his weakness. He was at that time discharged home. However, the patient pr esented to [facility] Emergency Department on the same day with complaint s of progressive symptoms leading to further work-up in the Emergency Department that included lab wo rk, CXR, head CT and lumbar puncture. He was noted to have evidence of a right upper lobe infiltrat e by CXR, as well as mild leukocytosis by labs. He was admitted to the hospital for further evaluati on and treatment. Mr. Cummings has been maintained on IV antibiotic therapy with Levofloxacin, but had continued to hav e fevers through the first 2 days of his hospital course. Consideration was given to broadening his antibiotic therapy initially but as he was going into his 2nd day of treatment, he was left on Levof loxacin. Last evening, he developed an acute dyspneic episode prompting repeat CXR and re-evaluatio n, with CXR showing findings with worsening right upper lobe pneumonia. His acute decompensation wa s thought to be secondary to a potential mucus plus that had cleared. At that time, the patient's a ntibiotic regimen was broadened to include Vancomycin and Cefepime. This morning, he reports that he is feeling better and he was weaned off of high-flow oxygen and remains on room air. No other sukhwinder nts reported. Currently afebrile. PHYSICAL EXAMINATION: General - the patient appears comfortable, now out of bed, sitting up in willem r. No acute distress noted. Vital signs - temperature 36.5 and afebrile since 7:30 last evening at which time he had a T-Max of 3 8.5. Blood pressure 121/82. Heart rate currently 114 with a range between 55 and 114. Pulse oximet ry 97% on room air. Neck - supple. Cardiovascular - irregularly irregular, mildly tachycardic at the time of examination. Pulmonary - decreased right-sided breath sounds, otherwise clear to auscultation without any evidence of wheezing. Abdomen - bowel sounds present, soft, nontender, nondistended. Vascular - minimal bilateral lower extremity edema. LABORATORY DATA: Sodium 143, potassium 3.7, chloride 109, bicarb 21, BUN 12, creatinine .99, glucos e 155. Lactate rechecked last evening and normal at 0.9. AST improved to 44, ALT improved to 96 and alkaline phosphatase similarly improved to 147. White blood count now finally normalized from prior values from 12, 12.8 and 13. HGB stable at 9.6. Platelet count 173,000. Differential with 90% neutrophils, 5.7 lymphocytes, 3.6 monocytes and no ba ndemia. STUDIES: 1) CXR - 12/08/2017 - findings consistent with worsening right upper lobe pneumonia.
--- NOTE | 2017-12-09 17:37 | NUR.NOTE ---
Nursing Note: ICU called and asked that someone check on this patient as his heart rate was in the 160s. This RN found the patient sitting in his chair. Patient stated that he moved around a little. Patient is not noting any feeling of something in his chest. Patient is noting SOB. Assigned nurse notified of finding as well as Clinical Coordinator and ICU
[2017-12-09] MEDS: Ibuprofen 600 MG TAB PO (18:09)
[2017-12-09] MEDS: Metoprolol 12.5 MG TAB PO (20:23)
[2017-12-09] MEDS: Apixaban 5 MG TAB PO (20:23)
[2017-12-09] MEDS: Simvastatin 20 MG TAB PO (22:32)
[2017-12-10] VITALS (103 sets, daily range): BP systolic 105–165; BP diastolic 57–100; PULSE 53–161; RESP 4–34; TEMP 36.6–36.8; O2SAT 2–100
[2017-12-10] MEDS: Hydrocortisone SOD SUC. 100 MG VIAL 50 MG IVP ×4 (02:25→23:20)
[2017-12-10 07:05] LABS: Abs Immature Grans 0.05 k/cumm (0.0-0.09); Absolute Eosinophil Count 0.01 k/cumm (0.0-0.7); Absolute Monocyte Count 0.45 k/cumm (0.11-0.7); Eosinophils % 0.1; HGB 8.9 g/dL (13.5-17.5); Immature Grans % 0.4; Mean Corp. HGB Concentration 34.2 g/dL (32.0-36.0); Mean Corpuscular Hemoglobin 33.2 pg (27.0-33.0); Mean Platelet Volume 10.3 fL (8.0-11.0); Monocytes % 3.4; Neutrophils % 91.1; Platelet Count 201 x1000/uL (130-400); RBC 2.68 m/cumm (4.50-6.00); RBC Distribution Width 13.8 % (11.8-14.1); White Blood Cell Count 13.13 k/cumm (4.4-10.8)
[2017-12-10 07:07] LABS: Absolute Lymphocyte Count 0.66 k/cumm (1.2-3.4); Absolute Neutrophil Count 11.96 k/cumm (1.2-6.7)
[2017-12-10 07:21] LABS: ALT 119 U/L (12-78); AST 75 U/L (15-37); Alkaline Phosphatase 154 U/L (46-116); Anion Gap 7.6 mmol/L (3-11); BUN 15 mg/dL (7-18); Bilirubin, Total 0.5 mg/dL (0.2-1.0); CO2 24.4 mmol/L (21.0-32.0); Calcium 8.4 mg/dL (8.5-10.1); Chloride 108 mmol/L (98-107); Glucose 125 mg/dL (70-100); Potassium 3.9 mmol/L (3.5-5.1); Sodium 140 mmol/L (136-145); Total Protein 6.2 g/dL (6.4-8.2)
[2017-12-10 07:39] LABS: Diff Comment RBC Morph Reviewed; Polychromasia Present
[2017-12-10 07:40] LABS: Poikilocytes 1+
[2017-12-10] MEDS: Aspirin 81 MG CHEW PO (07:49)
[2017-12-10] MEDS: Ascorbic Acid 500 MG TAB PO (07:49)
[2017-12-10] MEDS: Ibuprofen 600 MG TAB PO (07:50)
[2017-12-10] MEDS: Apixaban 5 MG TAB PO ×2 (07:50→20:18)
[2017-12-10] MEDS: Metoprolol 12.5 MG TAB PO ×2 (07:51→08:37)
[2017-12-10] MEDS: Omeprazole 20 MG CAPCR PO ×2 (07:51→20:18)
[2017-12-10] MEDS: VANCOMYCIN 1,250 MG in Normal Saline 250 ML 166.667 MG IV (08:06)
[2017-12-10 08:33] LABS: Magnesium 2.1 mg/dL (1.8-2.4)
[2017-12-10] MEDS: Potassium Chloride 10 MEQ TABCR PO (08:37)
--- NOTE | 2017-12-10 09:29 | INPTTR_ITS ---
PHYSICAL THERAPY PROGRESS NOTE Date: 12/10/17 PRECAUTIONS: Fall/ Seizures SUBJECTIVE: It was stated by nursing that pt is tachycardic this am and they are going to have him on hold today and monitor his vitals.
[2017-12-10] MEDS: Metoprolol 5 MG/5 ML VIAL IVP ×3 (09:36→16:49)
[2017-12-10] MEDS: Normal Saline Flush 10 ML SYR IVP ×5 (09:39→23:21)
--- NOTE | 2017-12-10 10:25 | PDOC.CMPRO ---
Date of Service: 12/10/17 Time of Service: 10:25 Care Management Progress Note S/O: Dejuan is sitting up in his chair today when this rewriter visits, he states that his Luana will be in At some point today to visit. Dejuan continues to require IV antibiotics, per MD report he is on three antibiotics at this time. Dejuan also remains on telemetry monitoring at this time. CM discussed DC plans with Dejuan and there are no changes in plan at this time. A: 62 year old male admitted to [facility] 12/06/17 for Pneumonia P: Dejuan will continue to work with PT. He will return home when ready per MD with no additional services or equipment anticipated at this time. He will follow up with his PCP and plan of care as prescribed. He will transport home via private vehicle with his , Luana.
[2017-12-10] MEDS: LEVOFLOXACIN 750 MG/150 ML BAG 150 MG IVPB (10:58)
[2017-12-10] MEDS: Levalbuterol 0.63 MG/3 ML UPD VIAL UPD (12:12)
[2017-12-10] MEDS: CEFEPIME 2 GM in Normal Saline 100 ML IVPB ×2 (13:32→20:30)
[2017-12-10 17:40] LABS: Vancomycin, Trough 28.5 ug/mL (10.0-20.0)
--- NOTE | 2017-12-10 19:32 | NUR.NOTE ---
Nursing Note: Patient was transferred to the ICU @ 1850. Report was given to Willow Henley RN.
[2017-12-10] MEDS: Metoprolol 25 MG TAB PO (20:18)
[2017-12-10] MEDS: Simvastatin 20 MG TAB PO (20:38)
[2017-12-10] MEDS: VANCOMYCIN 1,000 MG in Normal Saline 250 ML 250 MG IV (23:03)
[2017-12-11] VITALS (58 sets, daily range): BP systolic 91–140; BP diastolic 51–108; PULSE 59–169; RESP 15–28; TEMP 36.4–36.8; O2SAT 92–100
[2017-12-11] MEDS: CEFEPIME 2 GM in Normal Saline 100 ML IVPB ×3 (03:45→19:10)
[2017-12-11] MEDS: Normal Saline Flush 10 ML SYR IVP ×2 (04:59→19:13)
[2017-12-11] MEDS: Metoprolol 5 MG/5 ML VIAL IVP ×2 (05:01→19:48)
[2017-12-11] MEDS: Hydrocortisone SOD SUC. 100 MG VIAL 50 MG IVP ×4 (06:01→23:27)
[2017-12-11 06:53] LABS: Abs Immature Grans 0.05 k/cumm (0.0-0.09); Absolute Basophil Count 0.01 k/cumm (0.0-0.2); Absolute Eosinophil Count 0.01 k/cumm (0.0-0.7); Absolute Lymphocyte Count 0.68 k/cumm (1.2-3.4); Absolute Neutrophil Count 11.06 k/cumm (1.2-6.7); Basophils % 0.1; Eosinophils % 0.1; HCT 26.5 % (40.0-50.0); HGB 8.9 g/dL (13.5-17.5); Immature Grans % 0.4; Lymphocytes % 5.5; Mean Corp. HGB Concentration 33.6 g/dL (32.0-36.0); Mean Corpuscular Hemoglobin 33.2 pg (27.0-33.0); Mean Corpuscular Volume 98.9 fL (80-95); Mean Platelet Volume 9.9 fL (8.0-11.0); Monocytes % 4.8; Neutrophils % 89.1; Platelet Count 254 x1000/uL (130-400); RBC 2.68 m/cumm (4.50-6.00); RBC Distribution Width 14.2 % (11.8-14.1); White Blood Cell Count 12.41 k/cumm (4.4-10.8)
[2017-12-11 07:10] LABS: ALT 102 U/L (12-78); AST 35 U/L (15-37); Alkaline Phosphatase 123 U/L (46-116); Anion Gap 8.1 mmol/L (3-11); BUN 21 mg/dL (7-18); Bilirubin, Total 0.4 mg/dL (0.2-1.0); CO2 22.9 mmol/L (21.0-32.0); CREATININE 1.06 mg/dL (0.70-1.30); Calcium 8.1 mg/dL (8.5-10.1); Chloride 111 mmol/L (98-107); Glucose 121 mg/dL (70-100); Magnesium 2.1 mg/dL (1.8-2.4); Potassium 3.9 mmol/L (3.5-5.1); Sodium 142 mmol/L (136-145); Total Protein 5.9 g/dL (6.4-8.2)
[2017-12-11] MEDS: VANCOMYCIN 1,250 MG in Normal Saline 250 ML 250 MG IV ×2 (08:28→19:16)
[2017-12-11] MEDS: Omeprazole 20 MG CAPCR PO ×2 (08:59→19:16)
[2017-12-11] MEDS: Metoprolol 25 MG TAB PO (08:59)
[2017-12-11] MEDS: Metoprolol 12.5 MG TAB PO (08:59)
[2017-12-11] MEDS: Magnesium Oxide 400 MG TAB PO (09:00)
[2017-12-11] MEDS: Ascorbic Acid 500 MG TAB PO (09:00)
[2017-12-11] MEDS: Apixaban 5 MG TAB PO ×2 (09:00→19:16)
[2017-12-11] MEDS: Potassium Chloride 10 MEQ TABCR PO (09:00)
[2017-12-11] MEDS: Aspirin 81 MG CHEW PO (09:00)
[2017-12-11] MEDS: LEVOFLOXACIN 750 MG/150 ML BAG 150 MG IVPB (10:23)
--- NOTE | 2017-12-11 10:45 | INPTTR_ITS ---
PHYSICAL THERAPY PROGRESS NOTE Date: 12/11/17 PRECAUTIONS: SUBJECTIVE: OBJECTIVE Pt was moved to SCU so is on hold until further orders.
--- NOTE | 2017-12-11 12:03 | PGE_ITS ---
DATE: DECEMBER 11, 2017 @12:03 ASSESSMENT/PLAN: 1. Weakness This is likely on the basis of underlying pneumonia. Appears to be improved. Continue with physical therapy. 2. Pneumonia Evidence of infiltrate by chest x-ray, worsened despite two days of therapy with Levofloxacin. In the setting of worsening illness, and appearance of worsening infiltrate by repeat imaging, the patient's antibiotic coverage was broadened. Please note that prior to his admission he had had no history of antibiotic use, and although he was admitted immediately prior to his admission here it was less than 48 hours. Regardless he seems to be responding well to his current antibiotic regimen. Will continue day #3 of Vancomycin and Cefepime, as well as Levofloxacin that is now on day #5. He appears to be improving overall. 3. Atrial fibrillation Rapid ventricular response in the setting of acute infection, necessitating initial increase in beta james dose, addition of p.r.n. IV Lopressor, and eventual trial of IV Cardizem in the Intensive Care Unit. Mr. Cummings was only on IV Cardizem for a short period of time before developing some pauses and bradycardia necessitating discontinuation of this IV medication. Shortly thereafter he converted to normal sinus rhythm. Continue increased dose beta james as well as increased doses Apixaban. Mr. Cummings' initial Apixaban dose was 2.5 mg. b.i.d. but as he is less than 78 years of age, with creatinine well below 1.5 and a weight that is well above 60 kilograms, his dose was increased. This information was also shared with Cardiology, with whom he follows. 4. Seizure disorder Continue Keppra at home dosing, no seizures during this hospitalization. 5. Elevated Liver function tests. Mild elevated in LFTs in the setting of acute illness, currently continues to improve. AST has in fact normalized. Continue to monitor. The patient has been hydrated. 6. Left hemidiaphragm paralysis - noted. 7. Chronic anemia Hemoglobin again appears stable, continue to monitor. 8. Prophylaxis Continue Apixaban, currently on proton pump inhibitor therapy as well. 9. Code Status Full code SUBJECTIVE: Very pleasant 62 year-old man with past medical history significant for atrial fibrillation on anticoagulation, seizure disorder and prior history of Hodgkin' s lymphoma admitted from the [facility] Emergency Department with a four-day history of weakness. Mr. Cummings was originally admitted to [facility] the evening prior to his admission here and discharged as there were no findings to explain his weakness. He essentially came straight to [facility]'s Emergency Department on the same day following his discharge with complaints of progressive symptoms. At that time he was worked up further in the Emergency Department with lab work, chest x-ray, head CT, and lumbar puncture. He was noted to have evidence of a right upper lobe infiltrate by chest x-ray and mild leukocytosis by labs Following admission Mr. Cummings was initially maintained on therapy with Levofloxacin as he did not meet criteria for health care acquired pneumonia coverage. However he continued to be febrile for approximately 2 days and a repeat chest x-ray showed worsening of his infiltrate. Unfortunately, a sputum culture was not able to be obtained and there was no data to direct his antimicrobial therapy. His antibiotic regimen was broadened at that time to include Vancomycin and Cefepime in addition to the Levaquin. The patient also went on to develop rapid ventricular response in the setting of acute illness, initially controlled with increase in his home beta james regimen and some IV Lopressor, again worsened with administration of inhaled Levalbuterol. He was eventually transitioned to the Intensive Care Unit setting and initiated on a Cardizem drip which made him bradycardic rather quickly. Soon after his Cardizem drip was discontinued he converted to normal sinus rhythm. This morning Mr. Cummings reports feeling the best he has felt since the onset of his illness. He has no complaints. He remains off supplemental oxygen therapy. He also has been afebrile now for well over 48 hours. EXAMINATION: General: The patient is comfortable, sitting in chair out of bed and no acute distress noted. Vitals: Temperature 36.8 and afebrile since approximately 07:30 on the . Blood pressure 124/72, heart rate 83, pulse ox 99% on room air. Neck: Supple. Cardiovascular: Regular and non-tachycardic. Pulmonary: Continued decreased left-sided breath sounds but vastly improved this morning. No evidence of wheezing or rhonchi. Abdomen: Bowel sounds are present, soft, nontender, nondistended. Vascular: Minimal lower extremity edema noted. LABS: Normal sodium, potassium 3.9, chloride 111, bicarb 22.9, BUN 21, creatinine 1.06 , blood sugar 121. Liver function tests improved this morning with AST that has now normalized and ALT down to 102 with alkaline phos down to 123 from 154 yesterday. White blood count 12.41 with 89% neutrophils, 5.5 lymphocytes and 4.8 monocytes. Hemoglobin stable at 8.9, platelet count normal at 254. Repeat sputum culture obtained 12/08 shows a heavy growth of normal satya. This was obtained while on antibiotic therapy. Blood cultures with no growth ties 48 hours and originally with no growth times 96 hours. CSF cultures from lumbar puncture in the Emergency Department with no growth times 96 hours.
--- NOTE | 2017-12-11 12:09 | PDOC.CMPRO ---
Date of Service: 12/11/17 Time of Service: 12:09 Care Management Progress Note S/O: Dejuan is sitting up in his chair today in the ICU. He was moved to the ICU yesterday as he had increased confusion, work of breathing, and had tachycardia. DC plans remain the same at this time. A: 62 year old male admitted to [facility] 12/06/17 for Pneumonia P: Dejuan will continue to work with PT. He will return home when ready per MD with no additional services or equipment anticipated at this time. He will follow up with his PCP and plan of care as prescribed. He will transport home via private vehicle with his , Luana.
--- NOTE | 2017-12-11 12:14 | CMPROGNOTE_ITS ---
Date of Service: 12/11/17 Time of Service: 12:09 Care Management Progress Note S/O: Dejuan is sitting up in his chair today in the ICU. He was moved to the ICU yesterday as he had increased confusion, work of breathing, and had tachycardia. DC plans remain the same at this time. A: 62 year old male admitted to [facility] 12/06/17 for Pneumonia P: Dejuan will continue to work with PT. He will return home when ready per MD with no additional services or equipment anticipated at this time. He will follow up with his PCP and plan of care as prescribed. He will transport home via private vehicle with his , Luana.
--- NOTE | 2017-12-11 13:33 | PGE_ITS ---
DATE OF SERVICE: December 10, 2017 ASSESSMENT AND PLAN: #1. Weakness. Likely on the basis of acute illness from underlying pneumonia. Continue to treat in fection. The patient has been hydrated. Continue Physical Therapy. #2. Pneumonia. Evidence of an infiltrate by chest x-ray, worsened despite two days of Levaquin. In fact, the patient continued to have fevers across the first two days of treatment. [facility], he was in the hospital at an outside institution for less than 24 hours. He had also had no recent antibiotic use. However, given continued fevers and appare nt lack of effect, as well as evidence of progression by chest x-ray, antibiotic regimen was broadene d to include both vancomycin and cefepime in addition to the Levaquin. Mr. Cummings has now been afebrile for over 24 hours, with development of mild leukocytosis. His gemma athing status is unchanged. We will continue to monitor very closely. Today is day #2 of vancomycin and cefepime. #3. Atrial fibrillation. Rates had been tachycardic overnight and earlier this morning, necessitati ng an increase in beta james dose. The patient's rapid ventricular response is likely due to infla mmatory response to current infection. Continue to monitor heart rate closely on telemetry, and cont inue to treat pneumonia. Of note, the patient's apixaban was noted to be subtherapeutic previously, following discussion with Cardiology was changed to 5 mg b.i.d. #4. Seizure disorder. Continue Keppra at home dosing. #5. Elevated LFTs. Mild elevation of LFTs in the setting of acute illness, had been improving until slight worsening this morning. May still be on the basis of acute illness. Will continue to monito r closely. #6. Left hemidiaphragm paralysis - noted. #7. Chronic anemia. Hemoglobin appears to be slightly lower today. Again, this is in the setting o f acute illness. Will continue to monitor closely. #8. Prophylaxis. Continue now therapeutic dosing of apixaban, PPI therapy. #9. Code status - FULL CODE. SUBJECTIVE: Pleasant 62-year-old man with a past medical history significant for CAD, atrial fibrill ation on anticoagulation, and seizure disorder, with a prior history of Hodgkin's lymphoma admitted f rom the [facility] Emergency Department on the 06 of December with a four-day history of weakness. Mr. Cummings was originally admitted to [facility] the evening prior to his admission here, and without any findings to explain his weakness he was discharged. He subsequently came to [facility]'s Emergency Department due to progressing symptoms, and had a workup that included lab work, chest x-ra y, head CT, and lumbar puncture. He was noted to have evidence of a right upper lobe infiltrate by c hest x-ray, and mild leukocytosis by labs. He was admitted to the hospital for further evaluation an d treatment. While in the hospital, Mr. Cummings was initially maintained on IV antibiotic therapy with levofloxac in, having had no recent hospitalizations of 48 hours or longer, not having been on recent antibiotic therapy. However, despite this, the patient continued to have fevers over the next two days, and rivera d a mild acute respiratory decompensation prompting repeat chest x-ray. His imaging showed findings consistent with worsening right upper lobe pneumonia, and at that time his antibiotic regimen was bro adened to include vancomycin and cefepime. The patient continues to report overall improved status t his morning, but he is noted to be dyspneic but still without an oxygen requirement. He does have a slightly elevated white blood count this morning, following complete resolution of his leukocytosis y esterday. He also continues to have a mild drop in his hemoglobin, now at 8.9. No other events were reported. At this time the patient has been afebrile for over 24 hours. PHYSICAL EXAM: General: The patient is ill appearing but in no acute distress, sitting up out of bed in chair. Vitals: Temperature 36.8 and afebrile for over 24 hours; in fact, last fever was at 1921 on the of this month, approximately a day and a half ago. Blood pressure 132/74. Current pulse is 80 but had been sustained in the 150s to 160s overnight and earlier this morning. Pulse oximetry is 100% on 2 liters. Neck: Supple. CV: Irregularly irregular, non-tachycardic at time of exam. Pulm: Continued decreased left-sided mid to lower lung breath sounds, otherwise clear to auscultatio n without any evidence of wheezing. Abdomen: Bowel sounds present. Soft, nontender, nondistended. Vascular: Minimal bilateral lower extremity edema.
--- NOTE | 2017-12-11 16:25 | NUR.NOTE ---
Nursing Note: Long QT w/ levoquin use reported to MD. ERNST
[2017-12-11] MEDS: Metoprolol 12.5 MG TAB 37.5 MG PO (19:16)
[2017-12-11] MEDS: Simvastatin 20 MG TAB PO (19:17)
--- NOTE | 2017-12-11 21:32 | NUR.NOTE ---
Nursing Note: 1916 gave 1999 scheduled metoprolol 1921 pt has new vent bigeminy 1925 afib hr 90-120 1936 pt 2:1 flutter 183-530 5430 gave 5 mg ivp metoprolol prn - pt asymptomatic w/continued 2:1 flutter rate 145. pt HR varied 130-155 for 20 mins after metoprolol ivp then maintained 2:1 flutter at 145 from [id number] w/o rate variation 2117 restarted Cardizem with 5mg bolus 2.5 rate due to pt's reported bradycardic response and pauses > 3 secs this am to 20 mg bolus and 10mg rate. 2120 Heart rates reduced to 90-115 afib. increased rate to 5mg/hr. 2121 pt returned to 2:1 flutter rate 145. Cardizem bolus 5 given rate maintained at 5/hr 2123 HR 104 2144 HR 90 2150 HR 89 2205 HR 88 pt asymptomatic throughout
--- NOTE | 2017-12-11 22:44 | NUR.NOTE ---
Nursing Note:Pt hands phone to RN reporting wants an update. asking questions and relaying information for 15mins. States he is confuse on the phone tonight again. this happens when he is in afib. RN reported that pt had asked rn how to answer the TV remote when his called calls back after being in sinus all day and before he returned to fib/flutter.
[2017-12-12] VITALS (42 sets, daily range): BP systolic 107–149; BP diastolic 48–104; PULSE 58–161; RESP 17–33; TEMP 36.8–37.2; O2SAT 89–100
[2017-12-12] MEDS: CEFEPIME 2 GM in Normal Saline 100 ML IVPB ×3 (03:50→21:21)
[2017-12-12] MEDS: Hydrocortisone SOD SUC. 100 MG VIAL 50 MG IVP ×3 (06:34→21:21)
[2017-12-12] MEDS: Normal Saline Flush 10 ML SYR IVP ×2 (06:34→08:35)
[2017-12-12 07:28] LABS: Abs Immature Grans 0.25 k/cumm (0.0-0.09); Absolute Monocyte Count 1.05 k/cumm (0.11-0.7); Basophils % 0.1; Eosinophils % 0.1; HCT 27.9 % (40.0-50.0); HGB 9.3 g/dL (13.5-17.5); Immature Grans % 1.7; Lymphocytes % 8.6; Mean Corp. HGB Concentration 33.3 g/dL (32.0-36.0); Mean Corpuscular Hemoglobin 32.9 pg (27.0-33.0); Mean Corpuscular Volume 98.6 fL (80-95); Mean Platelet Volume 9.9 fL (8.0-11.0); Neutrophils % 82.5; Platelet Count 295 x1000/uL (130-400); RBC 2.83 m/cumm (4.50-6.00); RBC Distribution Width 14.2 % (11.8-14.1); White Blood Cell Count 15.06 k/cumm (4.4-10.8)
[2017-12-12 07:36] LABS: Absolute Basophil Count 0.02 k/cumm (0.0-0.2); Absolute Eosinophil Count 0.02 k/cumm (0.0-0.7); Absolute Neutrophil Count 12.42 k/cumm (1.2-6.7)
[2017-12-12 07:48] LABS: ALT 92 U/L (12-78); AST 23 U/L (15-37); Albumin 2.3 g/dL (3.4-5.0); Alkaline Phosphatase 118 U/L (46-116); Anion Gap 11.5 mmol/L (3-11); BUN 28 mg/dL (7-18); Bilirubin, Total 0.5 mg/dL (0.2-1.0); CO2 20.5 mmol/L (21.0-32.0); CREATININE 1.15 mg/dL (0.70-1.30); Calcium 8.7 mg/dL (8.5-10.1); Chloride 112 mmol/L (98-107); Glucose 117 mg/dL (70-100); Magnesium 1.9 mg/dL (1.8-2.4); Potassium 3.8 mmol/L (3.5-5.1); Sodium 144 mmol/L (136-145); Total Protein 6.3 g/dL (6.4-8.2)
--- NOTE | 2017-12-12 08:05 | INDS_ITS ---
PHYSICAL THERAPY INPATIENT DISCHARGE NOTE Date: 12/12/17 - late entry for 12/11/17 Dates of Service: SUBJECTIVE: NT OBJECTIVE 12/08/17-12/11/17 BED MOBILITY/TRANSFERS: Supine-sit: independent Sit-stand SBA Stand-sit: SBA Sit-supine: HOB flat, independent GAIT: SBA with FWW [id number] BALANCE: Static sitting normal Dynamic Sitting normal Static Standing fair Dynamic Standing fair ASSESSMENT: Pt is a 62 yr old male admitted with pneumonia in setting of seizure disorder, Hodgkin's disease, chronic anemia, panic attacks, atrial fibrillation, depression. Patient was seen for 3 PT visits. Pt was transferred to ICU due to decline in medical status, PT discharged until re-ordered by MD when patient medically stable. GOALS Goals x1 week 1. Supine-sit: independent 2. Sit-Supine: independent 3. Sit-Stand: supervision 4. Stand-sit supervision 5. Bed-chair supervision with FWW 6. Chair-bed supervision with FWW 7. Gait supervision with FWW [id number]. Stairs up/down 2 steps no railing. SBA Pt did not meet therapy goals due to transfer to ICU DISCHARGE RECOMMENDATIONS Transferred to ICU due to decline in medical status, D/C PT services. G Codes in the area mobility of walking and moving around:projected status GP [id number]____[id number]___. Discharge status (if discharging) GP [id number]___[id number]__ Kriss Gimenez PT
--- NOTE | 2017-12-12 08:07 | CMPROGNOTE_ITS ---
Care Management Progress Note S/O: Dejuan was sitting up in his chair when CM met with him. He was talkative though appeared to pause often and was SOB-when CM noted this to Dejuan, he stated his current state was a drastic improvement over yesterday, as he reported his voice was raspy and he was so SOB he struggled to speak. Dejuan noted clinical progress and processed events over the weekend which resulted in his transfer to ICU. He reported feeling that he is on the mend again. He shared no concerns clinically but processed concerns around his family at home without him. He stated his , Luana is struggling with managing the home and their children's needs without his support. He proudly shared that his twelve year old daughter has been weed wacking the lawn in his absence and he shared that he will be happy to return home when clinically ready. CM reviewed contact information if needs arise. A: 62 year old male admitted to [facility] 12/06/17 for Pneumonia P: Dejuan will continue to work with PT and was re-evaluated today; if needed CM will coordinate FWW upon discharge per MD. He will return home when ready per MD with no additional services or equipment anticipated at this time. He will follow up with his PCP and plan of care as prescribed. He will transport home via private vehicle with his , Luana.
[2017-12-12] MEDS: VANCOMYCIN 1,250 MG in Normal Saline 250 ML 250 MG IV ×2 (08:28→22:50)
[2017-12-12] MEDS: Apixaban 5 MG TAB PO ×2 (08:34→21:22)
[2017-12-12] MEDS: Ascorbic Acid 500 MG TAB PO (08:34)
[2017-12-12] MEDS: Metoprolol 12.5 MG TAB 37.5 MG PO ×2 (08:34→21:21)
[2017-12-12] MEDS: Omeprazole 20 MG CAPCR PO ×2 (08:35→21:22)
[2017-12-12] MEDS: Aspirin 81 MG CHEW PO (08:35)
--- NOTE | 2017-12-12 08:48 | IN_ITS ---
INPATIENT PHYSICAL THERAPY EVALUATION Date: 12/12/17 Referring Doctor: Drake Braga PT Orders: PT Consult weakness Precautions: Fall precautions, Seizure precautions PATIENT PROFILE/ADMITTING DIAGNOSIS: Pt is a 62 yr old male admitted with pneumonia, transferred to ICU due to increased wheezing and shortness of breath 12/11/17 PMHX: seizure disorder, Hodgkin's disease, chronic anemia, panic attacks, atrial fibrillation, depression, lymphoma with left hemidiaphragm paralysis, Raynaud's disease, hypercholesteremia, retinal detachment, cardiac catheterization stents x2, bone marrow transplant, coronary disease Social History/Home Situation: Lives with and daughters in a house, 2 steps no railing to enter, can stay on one level inside of home, flight of stairs to basement but does not have to use them. Baseline mobility independent gait with no device, independent with ADLS. Reports he normally does his own shovelling, lawn work and wood management for wood stove. Per chart he is on disability. Equipment owned/DME: grab bars in bathroom SUBJECTIVE: Pt lying in bed wheezing, increased respiratory rate, 02 sats 96% on 1liter 02 NC. Pt able to carry on conversation, agreeable to PT Consult. OBJECTIVE: General Observation: IV L UE, telemetry, 1 liter 02 NC, BP/02 monitors, TIMO hose , bilateral LE edema Mental Status: A& O x3 Pain: no c/o pain ROM: RUE: AROM WNL LUE AROM WNL RLE AROM WNL LLE AROM WNL STRENGTH: RUE 4/5 throughout LUE 4/5 throughout RLE 5/5 throughout LLE 5/5 throughout BED MOBILITY/TRANSFERS: * sneakers on for all transfers Supine-sit: HOB 30 degrees SBA Sit-stand SBA Bed-chair: SBA with FWW Stand-sit: SBA GAIT: *Sneakers donned for gait training, pt required Higinio to don/doff CGA with FWW 3ft. Pt wheezing with shortness of breath, 02 sats 93-96% on 1 liter NC. Pt left up in chair for breakfast. BALANCE: Static sitting normal Dynamic Sitting normal Static Standing fair Dynamic Standing fair SPECIAL TESTS: Mobility Limitations Standardized Measure [facility] AM -PAC 6 clicks Basic Mobility Inpatient Short Form: raw score: 18 standardized score: 43.63 CMS score: 46.58% CMS modifier: CK INFORMED CONSENT/EDUCATION: Pt instructed in purpose of PT Consult and plan of care ASSESSMENT: Pt is a 62 yr old male admitted with pneumonia in setting of seizure disorder, Hodgkin's disease, chronic anemia, panic attacks, atrial fibrillation, depression. Patient was being seen on the medical floor then transferred to ICU due to decline in respiratory status. Patient presents with the following impairment level findings: shortness of breath, wheezing at rest and with exertion, decreased strength with transfers, decreased strength with gait requiring FWW for gait stability to prevent falls, decreased static and dynamic standing balance due to weakness. Pt will benefit from short therm therapy intervention for strengthening, balance training and progressive mobility training. He may benefit from FWW for gait stability in home setting if balance has not improve by discharge. Impairments are contributing to the following functional limitations: AMPAC score CMS score: 46.58% Patient is assessed as a * Moderate 26190 complexity based on the following: History: pneumonia:,seizure disorder, Hodgkin's disease, chronic anemia, panic attacks, atrial fibrillation, depression, Examination: decreased strength with transfers, decreased strength with gait requiring FWW for gait stability to prevent falls, decreased static and dynamic standing balance due to weakness 2nd recent immobility Presentation: evolving Decision Making: AMPAC score CMS score: 46.58% GOALS Goals x1 week 1. Supine-sit: independent 2. Sit-Supine: independent 3. Sit-Stand: supervision 4. Stand-sit supervision 5. Bed-chair supervision with FWW 6. Chair-bed supervision with FWW 7. Gait supervision with FWW [id number]. Stairs up/down 2 steps no railing. SBA PLAN OF CARE/TREATMENT PLAN: 1-2x/day, 7 days/ week x 1 week Plan of care has been reviewed with the MAINTAINER OPERATOR providing the service under Physical therapy direction. Initiate physical therapy intervention for strengthening, bed mobility, transfers, gait, stairs, balance training, use of assistive device. DISCHARGE RECOMMENDATIONS Home, may benefit from FWW for gait stability TREATMENT TIME/MINUTES/CODES 25min IE 8:45 G Codes in the area mobility of walking and moving around: current status [id number] _CK projected status GP [id number]____[id number] . Discharge status ( if discharging) GP [id number]___FR vyzrs on AMPAC score CMS score: 46.58 % Kriss Gimenez PT
[2017-12-12] MEDS: Magnesium Oxide 400 MG TAB PO (09:08)
[2017-12-12] MEDS: Potassium Chloride 20 MEQ TABCR PO (09:08)
[2017-12-12] MEDS: LEVOFLOXACIN 750 MG/150 ML BAG 150 MG IVPB (10:24)
--- NOTE | 2017-12-12 13:13 | PGE_ITS ---
PROGRESS NOTE DATE: December 12, 2017 @ 1238 hours ASSESSMENT/PLAN: 1. Pneumonia. Evidence of infiltrate by chest x-ray, worsened despite two days of therapy with Levof loxacin. In the setting of worsening illness and continued fevers, the patient's antibiotic regimen was broade titi to include Vancomycin and Cefepime. Please note that prior to his admission he had no history of antibiotic use, and although he was admitted immediately prior to his admission with pneumonia as li jeremy cause for his weakness, he was only in the hospital for less than 24 hours. Regardless, he seem s to be responding to his current antibiotic regimen with day #4 of Vancomycin and Cefepime, as well as day #6 of Levofloxacin. He does have an elevating white blood wound with an essentially normal different ial, without any steroid therapy to explain the bump. However he does remain afebrile. Continue current antibiotic regimen. Given wheezing will start on some oral steroids and inhaled [place] esonide. Currently avoiding breathing treatments, as the patient's had a fairly significant response to low-dose Levalbuterol due to AFib with RVR. 2. Weakness. Likely on the basis of underlying pneumonia. Appears to be improving somewhat. Contin ue with physical therapy. 3. AFib. AFib with RVR in the setting of acute infection, necessitating initial increase in beta blo cker dose, addition of p.r.n. IV Lopressor and eventual trial of IV Cardizem. He did initially conve rt to normal sinus rhythm but has lapsed back into AFib for a brief period of time. Currently he rem ains in sinus rhythm. Continue increased dose beta james as well as now therapeutic dosing of Apix aban. Please note that Mr. Cummings' initial Apixaban dose was 2.5 b.i.d., but as he does not meet c riteria for lower dosing, his Apixaban was increased to 5 mg twice daily. This was relayed and discu ssed with his cardiology group as well. 4. Seizure disorder. Continue Keppra at home dosing. No seizure activity during this hospitalizatio n. 5. Elevated LFTs. Mild elevation in liver function tests in the setting of acute illness, currently continuing to improve with AST normalized. Continue to monitor. 6. Left hemidiaphragm paralysis - noted. 7. Chronic anemia. Hemoglobin appears stable. Continue to monitor. 8. Prophylaxis. Continue Apixaban, PPI therapy. 9. Code Status - FULL CODE. ++++++++++++++++++++++++ SUBJECTIVE: Very pleasant 62-year-old man with past medical history significant for AFib on anticoag ulation, seizure disorder, and a prior history of Hodgkin's lymphoma, admitted from [facility] with a four day history of weakness, found to have pneumonia. Mr. Cummings was originally admitted to [facility] on the evening prior to his admission he re, discharged without any source to explain his weakness. He essentially came straight to [facility] on the same day following his discharge with complaints of progressive symptoms. At that time he was worked up further in the E.D. with lab work, chest x-ray, a head CT and a lumbar puncture, with chest x-ray showing evidence of a right upper lobe infiltrate. He was also noted to h ave a mild leukocytosis by labs. Following admission Mr. Cummings was maintained on therapy with Levofloxacin for approximately 48 aquilino rs, as he did not meet criteria for healthcare-acquired pneumonia coverage (his prior hospitalization was less than 24 hours). However he continued to be febrile with worsening respiratory symptoms, pr ompting a repeat chest x-ray that showed worsening of his infiltrates. Unfortunately a sputum cultur e was not able to be obtained and there is no data to direct his antimicrobial therapy. At that time his antibiotic regimen was broadened to include Vancomycin and Cefepime. The patient also went on t o develop a rapid ventricular response with his AFib, eventually requiring transfer to the ICU. He h ad initially converted to normal sinus rhythm, but last evening had a brief run of AFib again, necess itating a Cardizem drip, back in sinus rhythm again this morning. He continues to have no oxygen req uirements but still appears dyspneic. He has however been afebrile now since the change in antibioti c therapy on December 08. His white count has elevated and has gone further up this morning to a value of 15. No other events were reported overnight. He remains afebrile. PHYSICAL EXAM: GENERAL: The patient is sitting out of bed; still pale but in no acute distress. VITALS: Temperature 37.2 and afebrile, blood pressure 119/70, heart rate 65 and in sinus rhythm, pul se oximetry 99% on 2 liters, 94-95% on room air. NECK supple. CV regular, non-tachycardic. PULMONARY continued vastly diminished left-sided breath sounds. This morning there is evidence of wh eezing throughout. VASCULAR minimal lower extremity edema noted and unchanged. LABS: Sodium 144, potassium 3.8, chloride 112, bicarbonate 20.9, BUN 28, creatinine 1.15, blood suga r 117, LFTs continue improvement with an AST of 23 that's now normalized, ALT of 92 and alkaline phos phatase of 118. White blood count worsened from 12.4 yesterday to 15 today with a stable hemoglobin of 9.3 and a platelet count of 295,000; 82.5% neutrophils, 8.5 lymphocytes and 7% monocytes on differ ential, with no bandemia noted.
[2017-12-12] MEDS: Metoprolol 5 MG/5 ML VIAL IVP (13:17)
--- NOTE | 2017-12-12 13:53 | INPTTR_ITS ---
PHYSICAL THERAPY PROGRESS NOTE Date: 12/12/17 PRECAUTIONS: Fall precautions SUBJECTIVE: Pt sitting in chair, RN in room. RN stated pt having episodes of increased heart rate to the 140's, pt provided with medication, heart rate at start of session 101bpm. RN cleared for patient to participate in therex if HR maintained lower than 130bpm. OBJECTIVE: PAIN: no c/o pain THEREX: Pt performed seated ankle pumps x 20 reps, long arc quad R LE x 10 reps then heart rate increased to 140-143bpm. Therex stopped and RN notified. ASSESSMENT: Pt's treatment session limited this afternoon due to elevated heart rate, will progress mobility in am PLAN: Progress strengthening Progress gait training TREATMENT CODES/TIME: 10min TPX1 [id number] Kriss Gimenez PT
[2017-12-12] MEDS: Budesonide 0.5 MG/2 ML UPD VIAL UPD ×2 (15:11→21:22)
--- NOTE | 2017-12-12 17:28 | DI.REPORT_ITS ---
SYMPTOM/DIAGNOSIS: PICC LINE PLACEMENT PORTABLE CHEST : 12/12/17 AT 5:57 P.M. Comparison is made with 08 December 2017. The PICC line has been inserted via the right arm. The tip projects across the midline in the left brachia cephalic vein. The line could be retracted by 5-6 cm. Evaluation of the lungs is limited due to respiratory motion. The right upper lobe infiltrate and left sided post surgical scarring and volume loss are roughly stable. IMPRESSION: PICC line extends across the midline. It could be pulled back by 5 -6 cm. No pneumothorax.
--- NOTE | 2017-12-12 18:23 | DI.VRAD_ITS ---
EXAM: XR Chest, 1 View CLINICAL HISTORY: 62 years old, male; Device placement; Picc; Patient HX: S/P picc line, placement TECHNIQUE: Frontal view of the chest. COMPARISON: CR - CHEST 2 VIEWS PA,LAT 2017-12-08 20:07 FINDINGS: Lungs: Persistent marked elevation of the left hemidiaphragm is demonstrated which may indicate partial left pneumonectomy and/or left phrenic nerve paralysis. There is hazy airspace opacity throughout both lung roblero suspicious for interstitial pneumonitis. Pleural space: There also appears to be a thickened left pleural rind present. No pneumothorax. Heart: There is borderline cardiac enlargement. Mediastinum: Unremarkable. Bones/joints: The osseous structures appear diffusely osteoporotic and unchanged. Soft tissues: Left parahilar surgical clips are present. Tubes, lines and devices: There has been interval placement of a right upper extremity PICC line which is seen to cross the midline; and it is suspected to be entering into the lower left brachiocephalic vein. Consideration could be given to retraction by an estimated 6.5 cm. IMPRESSION: 1. Diffuse airspace haziness suspicious for bilateral interstitial pneumonitis. 2. Status post interval placement of a right upper extremity PICC line with its distal tip thought to be positioned within the lower left brachiocephalic vein. This should perhaps be retracted by an estimated 6.5 cm. Dictated and Authenticated by: Conor Torre MD. Ordering:LOLA VO MD
--- NOTE | 2017-12-12 19:30 | DI.RPTCT_ITS ---
SYMPTOM/DIAGNOSIS: DYSPNEA, PNEUMONIA, A FIB CHEST CT: Comparison is made with portable chest performed earlier the same day. A PICC line is seen entering via the right arm. The tip lies in the left brachiocephalic vein and appears unchanged in position when compared with the previous portable chest. No pneumothorax is seen. There are small bilateral effusions, right greater than left. Post surgical changes are again noted of the left chest. The exam is somewhat limited by patient motion. There is a tiny pericardial effusion and mild cardiomegaly. There are increased opacities in the right upper lobe as seen on chest x-ray consistent with pneumonia. There is mild compression of the anterior superior end plates of T-9 and T-10 which do not appear changed when compared with a recent chest x-ray from 06 Dec 2017, also appears grossly unchanged when compared with chest x-rays from 2015. IMPRESSION: Right upper lobe pneumonia. Post surgical changes of the left chest. Small bilateral pleural effusions. PICC line tip is located in the left brachiocephalic vein.
--- NOTE | 2017-12-12 19:59 | DI.VRAD_ITS ---
EXAM: CT Chest Without Intravenous Contrast CLINICAL HISTORY: 62 years old, male; Condition or disease and device placement; Other: Afib, pneumonia; Catheter placement, adjustment or replacement; Prior surgery; Surgery date: Post-operative (0-2 days); Surgery type: Picc line; Patient HX: Pt unable to hold breath, difficulty breathing, please check line placement also. Repositioned since portable cxr TECHNIQUE: Axial computed tomography images of the chest without intravenous contrast. All CT scans at this facility use at least one of these dose optimization techniques: automated exposure control; mA and/or kV adjustment per patient size (includes targeted exams where dose is matched to clinical indication); or iterative reconstruction. Coronal and sagittal reformatted images were created and reviewed. COMPARISON: SC - PORTABLE AP CHEST, POST LINE 2017-12-12 17:56 FINDINGS: Lungs: A thickened pleural rind is seen in the left thorax. These findings are thought likely indicative of prior partial left pneumonectomy. Correlation with past known thoracic surgical history is needed. Hazy airspace opacity is present throughout both lung roblero; more extensively on the right common suspicious for interstitial pneumonitis. Pleural space: A small right pleural effusion is present. No pneumothorax. Heart: A small pericardial effusion is present. There is mild cardiomegaly. Bones/joints: There are thought to be possible acute wedge compression deformity of T9 and T10. There is a suspected focal central superior endplate Schmorl's node herniation at T11. Marginal anterior spurring is seen throughout the mid-lower thoracic vertebrae. No dislocation. Soft tissues: Unremarkable. Vasculature: Atherosclerotic plaquing is seen within the descending thoracic aorta and extensively within the left coronary artery. No thoracic aortic aneurysm. Lymph nodes: Unremarkable. No enlarged lymph nodes. Upper abdomen: Marked elevation of the left hemidiaphragm is again noted. Tubes, lines and devices: As previously suspected, a right upper extremity PICC line is present which crosses the anterior midline and enters into the lower left brachiocephalic vein. Consideration could be given to some retraction. IMPRESSION: 1. A right upper extremity PICC line appears unchanged in position; having its distal tip entering into the lower left brachiocephalic vein. Some retraction could be considered. 2. Suspected bilateral interstitial pneumonitis; more pronounced on the right. 3. A small right pleural effusion is present. 4. Suspected subtle acute wedge compression fracture injuries of the anterior superior endplates of T9 and T10. Dictated and Authenticated by: Conor Torre MD. Ordering:LOLA VO MD
--- NOTE | 2017-12-12 20:11 | DI.REPORT_ITS ---
SYMPTOM/DIAGNOSIS: S/P PICC LINE ADJUSTMENT. PORTABLE CHEST: NOVEMBER 2017 AT 8:27 P.M. Comparison is made with the exam performed earlier the same day. The PICC line is unchanged in position in the left brachia cephalic vein. The lungs are better inflated on the current exam. No change in the right upper lobe infiltrate as well as underlying post surgical changes and volume loss of the left chest.
--- NOTE | 2017-12-12 21:02 | DI.VRAD_ITS ---
EXAM: XR Chest, 1 View CLINICAL HISTORY: 62 years old, male; Device placement; Picc; Prior surgery; Surgery date: 6+ months; Surgery type: Picc line today; Patient HX: Line placement TECHNIQUE: Frontal view of the chest. COMPARISON: CR - CHEST 2 VIEWS PA,LAT 2017-12-12 17:57 FINDINGS: Lungs: Overall, there has been generalized improvement in aeration of both lung roblero. Some of this apparent improvement in aeration may be subsequent to an improved inspiratory effort. There remains volume loss in the left hemithorax. However, there has been interval increase in opacity in the right upper lobe thought consistent with a focal interstitial pneumonitis. Marked elevation of the left hemidiaphragm is again noted. These findings all suggest prior partial left pneumonectomy. Pleural space: A thickened pleural rind is again seen in the left hemithorax. No pneumothorax. Heart: Cardiac size is near the upper limits of normal. Mediastinum: Unremarkable. Bones/joints: The osseous structures appear unchanged. Soft tissues: Left parahilar surgical clips are present. Tubes, lines and devices: A right upper extremity PICC line remains unchanged in position with its distal tip overlying the medial left upper thorax likely in the distal left brachiocephalic vein. IMPRESSION: 1. Interval improvement in aeration of both lung roblero. 2. Increased airspace opacity within the right upper lobe suspicious for interstitial pneumonitis. 3. A right upper extremity PICC line remains unchanged in position; with its distal tip suspected to reside within the left brachiocephalic vein. Dictated and Authenticated by: Conor Torre MD. Ordering:AL ALVARES MD
[2017-12-12] MEDS: Melatonin 3 MG TAB 6 MG PO (21:22)
[2017-12-12] MEDS: predniSONE 20 MG TAB 40 MG PO (21:22)
[2017-12-12] MEDS: Simvastatin 20 MG TAB PO (21:22)
[2017-12-12] MEDS: Furosemide 20 MG/2 ML VIAL IVP (21:26)
[2017-12-13] VITALS (40 sets, daily range): BP systolic 111–138; BP diastolic 67–109; PULSE 64–155; RESP 19–29; TEMP 36.4–37.6; O2SAT 86–99
[2017-12-13] MEDS: CEFEPIME 2 GM in Normal Saline 100 ML IVPB ×3 (03:28→21:05)
[2017-12-13] MEDS: Normal Saline Flush 10 ML SYR IVP ×4 (03:28→21:35)
[2017-12-13] MEDS: Hydrocortisone SOD SUC. 100 MG VIAL 50 MG IVP (03:29)
[2017-12-13 07:18] LABS: Abs Immature Grans 0.38 k/cumm (0.0-0.09); HCT 26.6 % (40.0-50.0); HGB 8.8 g/dL (13.5-17.5); Mean Corp. HGB Concentration 33.1 g/dL (32.0-36.0); Mean Corpuscular Hemoglobin 32.5 pg (27.0-33.0); Mean Corpuscular Volume 98.2 fL (80-95); Mean Platelet Volume 10.2 fL (8.0-11.0); Platelet Count 292 x1000/uL (130-400); RBC 2.71 m/cumm (4.50-6.00); RBC Distribution Width 14.3 % (11.8-14.1); White Blood Cell Count 15.08 k/cumm (4.4-10.8)
[2017-12-13 07:39] LABS: ALT 67 U/L (12-78); AST 27 U/L (15-37); Albumin 2.1 g/dL (3.4-5.0); Alkaline Phosphatase 104 U/L (46-116); BUN 27 mg/dL (7-18); Bilirubin, Total 0.6 mg/dL (0.2-1.0); CO2 24.3 mmol/L (21.0-32.0); CREATININE 1.21 mg/dL (0.70-1.30); Calcium 8.1 mg/dL (8.5-10.1); Glucose 139 mg/dL (70-100); Total Protein 5.7 g/dL (6.4-8.2)
[2017-12-13 07:46] LABS: Vancomycin, Trough 35.1 ug/mL (10.0-20.0)
[2017-12-13 07:48] LABS: Absolute Lymphocyte Count 1.96 k/cumm (1.2-3.4); Absolute Monocyte Count 0.45 k/cumm (0.11-0.7); Absolute Neutrophil Count 12.52 k/cumm (1.2-6.7); Atypical Lymphocytes % 0; Diff Comment Manual Differential; RBC Morphology Normal
[2017-12-13 07:55] LABS: Anion Gap 11.7 mmol/L (3-11); Chloride 108 mmol/L (98-107); Potassium 3.2 mmol/L (3.5-5.1); Sodium 144 mmol/L (136-145)
--- NOTE | 2017-12-13 08:10 | PDOC.CMPRO ---
Care Management Progress Note S/O: Yasmani was lying in bed, Luana at his bedside discussing medication changes with Dr. Alonso when CM entered the room. Dr. Alonso reviewed current clinical path thus far and reported he continues to monitor Dejuan's respiratory function and if improvements are not noted; Yasmani may want to prepare for transfer to [facility]. Luana and Yasmani processed this information well, and reported confidence in Yasmani's treatment thus far. Luana processed struggles at home, and Yasmani processed feeling guilty for being unavailable to his family; CM encouraged self care to both Luana and Yasmani and reviewed natural and service supports. CM will continue to follow and support Yasmani and Luana. A: 62 year old male admitted to [facility] 12/06/17 for Pneumonia P: Undetermined discharge plan at this time; CM will continue to follow.
[2017-12-13] MEDS: predniSONE 20 MG TAB 40 MG PO ×2 (08:37→20:53)
[2017-12-13] MEDS: Metoprolol 12.5 MG TAB 37.5 MG PO (08:37)
[2017-12-13] MEDS: Omeprazole 20 MG CAPCR PO ×2 (08:38→20:53)
[2017-12-13] MEDS: Ascorbic Acid 500 MG TAB PO (08:38)
[2017-12-13] MEDS: Aspirin 81 MG CHEW PO (08:38)
[2017-12-13] MEDS: Apixaban 5 MG TAB PO (08:39)
[2017-12-13] MEDS: Budesonide 0.5 MG/2 ML UPD VIAL UPD ×2 (09:00→20:53)
[2017-12-13] MEDS: Potassium Chloride 20 MEQ TABCR 40 MEQ PO (09:56)
--- NOTE | 2017-12-13 10:40 | INPTTR_ITS ---
PHYSICAL THERAPY PROGRESS NOTE Date: 12/13/17 PRECAUTIONS: Fall precautions SUBJECTIVE: Pt reports feeling less short of breath and wheezing today, able to carry on conversation. Eager to begin walking. in room visiting with patient. OBJECTIVE General observation: 2liters 02 NC, telemetry, 02 monitor PAIN: no c/o pain BED MOBILITY/TRANSFERS Supine-sit: HOb 30 degrees, independent Sit-stand: SBA with FWW Stand-sit: SBA Bed-Chair: SBA with FWW GAIT * recommend sneakers for gait mobility Assistive Device FWW Weightbearing full Assist: SBA Distance: 90ft, 02 sats 93% on 2 liters NC. Pt returned to room and sat up in chair. THEREX: Performed seated ankle pumps, long arc quads and hip flexion x 20 reps, bicep curls x 20 reps ASSESSMENT: Able to progress to gait mobility with FWW, improved strength with transfers. PLAN: Progress strengthening Progress gait mobility TREATMENT CODES/TIME: 30min TAx1 TP x1 10:35 Kriss Gimenez PT
[2017-12-13] MEDS: Normal Saline 500 ML 30 ML IV (11:53)
--- NOTE | 2017-12-13 15:16 | INPTTR_ITS ---
PHYSICAL THERAPY PROGRESS NOTE Date: 12/13/17 PRECAUTIONS: Fall precautions SUBJECTIVE: Pt has been up in chair since this morning, agreeable to PT session. Pt encouraged to get back to bed to rest after session completed to elevate LE's to reduce edema and to allow muscles to rest, pt agreeed. OBJECTIVE General observation: 2liters 02 NC, telemetry, 02 monitor PAIN: no c/o pain BED MOBILITY/TRANSFERS Sit-stand: SBA with FWW Stand-sit: SBA Chair-bed: SBA with FWW Sit-supine: HOB flat, independent GAIT * recommend sneakers for gait mobility Assistive Device FWW Weightbearing full Assist: SBA Distance: 120ft. Pt instructed in pacing and energy conservation techniques with gait to reduce shortness of breath with exertion, pt took 2 standing rest breaks of 1min each during gait session. 02 sats remained 91-94% on 2 liters NC. Pt returned to bed after session completed. RN to check on patient's breathing. THEREX: Performed seated ankle pumps, long arc quads and hip flexion x 20 reps x 20 reps ASSESSMENT: Pt up in chair most of the day today, participate in two therapy sessions. Improved strength with mobility, continues to experience shortness of breath with exertion requiring pacing of activities and rest breaks for recovery. PLAN: Progress strengthening Progress gait mobility TREATMENT CODES/TIME: 25min TAx1 TAx1 TP x1 1507 Kriss iGmenez PT
--- NOTE | 2017-12-13 20:06 | PGE_ITS ---
DATE: December 13, 2017 ASSESSMENT AND PLAN: #1. Right upper lobe pneumonia. The CT scan of the chest last night confirms pneumonia there. It d oes not appear to be a very firm consolidation, somewhat diffuse and atypical, described as a pneumo nitis. I am questioning whether this indeed is an infectious process. I think he would benefit fro m a bronchoscopy which would be complicated by his paralyzed by his left hemidiaphragm, seizure disor pushpa, and history of lymphoma. Will discuss the case with Dr. Leon tomorrow and consider possib le transfer to [facility] for further pulmonary workup including bronchoscopy with washings and biopsi es. Given no micro guide therapy, we will discontinue vancomycin and Levaquin. Continue cefepime as empi moses therapy. Will add Biotene mouthwash to his regimen. #2. Atrial fibrillation. Continues in and out of atrial fibrillation with rapid ventricular respons e. Increase metoprolol from 37.5 b.i.d. to 50 mg b.i.d. (Patient has apparently been taking 50 mg b. i.d. in advertently according to his .) Continue to monitor in the ICU on cardiac monitoring. #3. Seizure disorder. Stable on the Keppra. #4. Elevated LFTs. Those have improved. #5. Code status - remains a FULL CODE. Monitor in acute care status in the ICU. REASON FOR ADMISSION: Right upper lobe pneumonitis/rapid atrial fibrillation. SUBJECTIVE: He thinks he might feel a little better today but still has paroxysms of a terrible coug h where he cannot catch his breath and he develops a certain aspect of panic. He says his cough is p roductive only of clear sputum. He denies any fever, chills, or rigors. His is concerned that he is not improving here on day #7 of his hospitalization. His appetite is diminished. He is trying to eat right. He does get more short of breath if he eat s too much. OBJECTIVE: Vital signs: Temperature 36.4, he has been afebrile. Blood pressure is 126/76. Respiratory rate 22 . Pulse 81. Saturation is 98% on 2 liters. General: On exam he has some mild dyspnea just with conversation and gets quite dyspneic with minima l activity. Lungs: Sitting him upright there are no breath sounds at the left base up one-half and some rales at the lower portion of the audible lung on the left. The right side has some rales on the right upper lobe but relatively clear lung sounds on the lower portion of the right. Heart: Rapid and irregular. Abdomen: Soft and nontender. Lower extremities: He has trace edema in both lower extremities. LABORATORY EVALUATION: His white count is 15.08 thousand, hemoglobin 8.8, hematocrit 26.6, platelets 262,000, 83 segs, 13 lymphs, no bands. Sodium 144, potassium 3.2, BUN 27, creatinine 1.21, blood sugar 139.
[2017-12-13] MEDS: Simvastatin 20 MG TAB PO (20:53)
[2017-12-13] MEDS: Metoprolol 50 MG TAB PO (20:54)
[2017-12-13] MEDS: Apixaban 5 MG TAB 2.5 MG PO (20:54)
[2017-12-13] MEDS: Metoprolol 5 MG/5 ML VIAL IVP (21:33)
[2017-12-14] VITALS (55 sets, daily range): BP systolic 86–157; BP diastolic 40–99; PULSE 53–168; RESP 16–37; TEMP 36.6–37.4; O2SAT 85–100
[2017-12-14] MEDS: Metoprolol 5 MG/5 ML VIAL IVP ×3 (00:55→05:46)
[2017-12-14] MEDS: CEFEPIME 2 GM in Normal Saline 100 ML IVPB (03:06)
[2017-12-14] MEDS: Normal Saline Flush 10 ML SYR IVP ×3 (03:06→18:30)
[2017-12-14 06:56] LABS: Abs Immature Grans 0.48 k/cumm (0.0-0.09); HCT 26.6 % (40.0-50.0); Mean Corp. HGB Concentration 33.8 g/dL (32.0-36.0); Mean Corpuscular Hemoglobin 33.2 pg (27.0-33.0); Mean Corpuscular Volume 98.2 fL (80-95); Mean Platelet Volume 10.2 fL (8.0-11.0); Platelet Count 324 x1000/uL (130-400); RBC 2.71 m/cumm (4.50-6.00); RBC Distribution Width 14.2 % (11.8-14.1); White Blood Cell Count 17.29 k/cumm (4.4-10.8)
[2017-12-14 07:12] LABS: Anion Gap 11.5 mmol/L (3-11); BUN 29 mg/dL (7-18); CO2 23.5 mmol/L (21.0-32.0); CREATININE 1.22 mg/dL (0.70-1.30); Calcium 8.2 mg/dL (8.5-10.1); Chloride 109 mmol/L (98-107); Glucose 143 mg/dL (70-100); Potassium 3.5 mmol/L (3.5-5.1); Sodium 144 mmol/L (136-145)
[2017-12-14 07:30] LABS: Absolute Eosinophil Count 0.35 k/cumm (0.0-0.7); Absolute Lymphocyte Count 1.04 k/cumm (1.2-3.4); Absolute Monocyte Count 1.04 k/cumm (0.11-0.7); Absolute Neutrophil Count 14.52 k/cumm (1.2-6.7)
[2017-12-14 07:31] LABS: Diff Comment Manual Differential; Poikilocytes 1+; Polychromasia Present
[2017-12-14] MEDS: Budesonide 0.5 MG/2 ML UPD VIAL UPD ×2 (07:36→20:29)
[2017-12-14] MEDS: Metoprolol 50 MG TAB PO (08:12)
[2017-12-14] MEDS: predniSONE 20 MG TAB 40 MG PO (08:20)
[2017-12-14] MEDS: Omeprazole 20 MG CAPCR PO ×2 (08:22→20:28)
[2017-12-14] MEDS: Ascorbic Acid 500 MG TAB PO (08:22)
[2017-12-14] MEDS: Aspirin 81 MG CHEW PO (08:22)
[2017-12-14] MEDS: Apixaban 5 MG TAB 2.5 MG PO (08:23)
[2017-12-14] MEDS: Spironolactone 25 MG TAB 12.5 MG PO (08:23)
[2017-12-14] MEDS: LORazepam 0.5 MG TAB PO (10:44)
--- NOTE | 2017-12-14 10:46 | INPTTR_ITS ---
PHYSICAL THERAPY PROGRESS NOTE Date: 12/14/17 PRECAUTIONS: Fall precautions SUBJECTIVE: Pt lying in bed, shortness of breath, 02 sats 96% on 2 liters NC. RN recommending patient transfer to chair, pt agreeable. OBJECTIVE General observation: 2liters 02 NC, telemetry, 02 monitor PAIN: no c/o pain BED MOBILITY/TRANSFERS Supine-sit: independent Sit-stand: SBA with FWW Stand-sit: SBA GAIT * recommend sneakers for gait mobility Assistive Device FWW Weightbearing full Assist: SBA Distance: 3 steps bed to chair, gait training witheld due to exertion of breathing ASSESSMENT: Pt mobility limited today due to shortness of breath, able to transfer bed to chair. RN monitoring in room. PLAN: Progress strengthening Progress gait mobility TREATMENT CODES/TIME: 15min TAx1 1045 Kriss Gimenez PT
[2017-12-14] MEDS: Furosemide 20 MG/2 ML VIAL IVP ×2 (11:19→16:13)
[2017-12-14 13:01] LABS: NT-proBNP 16505 pg/mL
[2017-12-14 13:09] LABS: D-Dimer 1186 ng/mlFEU (<500)
--- NOTE | 2017-12-14 14:00 | DI.RPTCT_ITS ---
SYMPTOMS/DIAGNOSIS: PERSISTENT RIGHT UPPER LOBE INFILTRATE, DYSPNEA, H/O LYMPHOMA, CAD, CARDIOMYOPATHY, A-FIB RVR CT SCAN OF THE CHEST: CT angiography was performed with multi slice acquisition and multi planar and 3D reconstruction. Ct scan of the chest was performed according to the pulmonary embolus protocol. Comparison CT scan is 12/12/17. There is no evidence of a pulmonary embolus. The thoracic aorta is of normal caliber. No evidence of dissection or aneurysm. The heart size is within normal limits. there is a persistent small pericardial effusion. No evidence of right ventricular dysfunction is seen. Coronary artery calcifications are present. No significant mediastinal adenopathy is present. There are stable bilateral pleural effusions. There are stable right apical infiltrates present. There are postsurgical changes again seen in the left hemithorax, which appear stable. No new infiltrates are seen. No evidence of a pneumothorax is present. Degenerative changes are seen in the spine. IMPRESSION: 1. No evidence of a pulmonary embolus or thoracic aortic dissection or aneurysm. 2. Stable right upper lobe pneumonia. 3. Stable bilateral pleural effusions. 4. Stable postsurgical changes in the left hemithorax.
[2017-12-14] MEDS: Omnipaque 350 MG/ML 100 ML BTL IJ (14:05)
--- NOTE | 2017-12-14 14:15 | NUR.NOTE ---
1300 Isabella Laurent RN assumed care for this patient for Lola Estes RN in talking the patient to CT. Report given by Lola PRICE and states that patient has some crackles in the lungs more prominent in the bases with intermittent wheezing. Otherwise assessment is benign. Pt taken to CT at 1312 and returned at 1406. Patient tolerated test well. HR increases to 160s with activity and Dr. Alonso was aware that the patient's HR was uncreased to 160 when the patient went for the test. The HR resolved to 120s and then increased again to 160s after getting back to the room. VS stable otherwise. Patient states that he feels fine. The IV contrast allergy was addressed with Dr. Alonso by the patient and the patient and were informed and addressed in the concern for having the IV contrast CT done. The patient and his state that he was able to tolerate the IV dye several years ago but after having many IV dye CTs done and with all the cancer treatments, he started having projectile vomiting the minute that he got the med. The patient and his agreed and requested to still have the IV contrast done since they feel that it was mainly the combination with the chemo. Patient tolerated IV contrast well. Nursing Note:
[2017-12-14] MEDS: Normal Saline 1,000 ML 30 ML IV (14:57)
--- NOTE | 2017-12-14 15:46 | PDOC.CMPRO ---
Date of Service: 12/14/17 Time of Service: 15:46 Care Management Progress Note S/O: Dejuan was reviewed at interdisciplinary rounds, CM completed a chart review and patient continues to receive care in the ICU. is consulting pulmonary and possible transfer to tertiary center. Pt is receiving PT and had a CT scan today results are pending. His spouse and his son are at the bedside. A:62 year old male admitted with pneumonia, currently being treated with oral steroids. He has atrial fibrillation he is currently on a Cardizem drip. P:Dejuan will have no change in status today. Discharge disposition to be determined. CM to continue to provide support to patient and family discharge planning and disposition.
[2017-12-14] MEDS: Potassium Chloride 20 MEQ TABCR 40 MEQ PO (17:30)
[2017-12-14] MEDS: Alteplase 2 MG VIAL IJ (18:30)
[2017-12-14] MEDS: Apixaban 5 MG TAB PO (20:29)
[2017-12-14] MEDS: Potassium Chloride 10 MEQ CAPCR 20 MEQ PO (20:30)
--- NOTE | 2017-12-14 20:50 | PGE_ITS ---
DATE: December 14, 2017 ASSESSMENT AND PLAN: #1. Congestive heart failure. He has a markedly elevated BNP of 16,505. Given his history of cardi omyopathy and fluid resuscitation he has received, I believe he is in a significant amount of congest maría heart failure which is the cause for his tachypnea, hypoxia, and dyspnea. We will try IV furosem roopa 20 mg twice daily. Monitor potassium closely. We will see if we can improve his respiratory fun ction with aggressive diuresis. #2. Rapid atrial fibrillation. He is back on the Cardizem drip, titrated to keep his heart rate bel ow 100, systolic above 100. Will consider trying to convert him back to both beta james and calciu m channel james to achieve adequate rate control. Consider amiodarone for rate and rhythm control if needed. Will discuss further with Cardiology if it comes to that. Continue the Eliquis. Given h is weight, it is recommended he be on 5 mg b.i.d. We will convert him back up from 2.5 mg b.i.d. #3. Elevated D-dimer. CT angiogram negative for PE. He was anticoagulated leading up to this event and PE is now ruled out. #4. Question right upper lobe pneumonia. In discussion with colleagues it does not appear that this is an infectious process. He has not had a fever. White count is up primarily because of the stero ids and imaging does not show this to be a consolidation consistent with pneumonia. We are working m ainly on diuresis. At this point we will stop the cefepime. He is now off antibiotics. #5. COPD exacerbation. He is still on p.o. prednisone, decreased from 40 mg b.i.d. to 40 mg daily. He still has considerable wheezing. Continue updrafts as needed. Some of this could be exacerbated by the underlying congestive heart failure. We will see how his respiratory status improves. #6. Disposition. Continue to monitor in the ICU. He remains a FULL CODE. REASON FOR ADMISSION: Congestive heart failure/right upper lobe infiltrate. SUBJECTIVE: He still gets panicky when he gets short of breath. He takes rapid shallow breaths and it worse the more anxious he gets. Still minimal cough. No chest pain. No purulent sputum. He has not had any fever, chills, or rigors. He was in atrial fibrillation most of the night. He got three p.r.n. doses of IV metoprolol. We talked about transfer to tertiary care for possible bronchoscopy. I spoke with [facility]. They have n o beds. I spoke to [facility] and they had no beds but gave suggestions on management going forvega sutton. OBJECTIVE: Vital signs: Temperature 36.6. Blood pressure 116/83. Respiratory rate 25. Pulse 94. Saturation 97% on 2 liters. General: On exam he is an anxious-appearing man but pleasant and otherwise in no significant distres s. Lungs: He does have audible expiratory wheezes. Posteriorly the left side showed absent breath soun d up to almost the apex where lung sounds were clear. The right side showed some expiratory wheezes throughout the entire right side and rales in the right upper. Heart: His heart sounds were rapid and regular. Abdomen: Soft and nontender. Lower extremities: Trace edema. LABORATORY EVALUATION: White count 17.29 thousand, hemoglobin 9.0, hematocrit 26.6, platelets 324,00 0, 80 segs, 6 lymphs, 4 bands. Sodium 144, potassium 3.5, BUN 29, creatinine 1.22, blood sugar 143. CT angiogram of the chest today shows no evidence of a pulmonary embolism. The right upper lobe infi ltrate was stable. There were bilateral pleural effusions and stable postsurgical changes in the lef t hemithorax.
[2017-12-14] MEDS: Metoprolol 50 MG TAB 25 MG PO (22:57)
[2017-12-14] MEDS: Simvastatin 10 MG TAB PO (22:58)
[2017-12-15] VITALS (90 sets, daily range): BP systolic 69–131; BP diastolic 29–119; PULSE 57–165; RESP 16–47; TEMP 36–37.1; O2SAT 90–100
[2017-12-15] MEDS: Metoprolol 50 MG TAB 25 MG PO ×4 (03:32→21:27)
[2017-12-15 06:53] LABS: Abs Immature Grans 0.55 k/cumm (0.0-0.09); Absolute Lymphocyte Count 1.83 k/cumm (1.2-3.4); Absolute Monocyte Count 1.12 k/cumm (0.11-0.7); Absolute Neutrophil Count 10.82 k/cumm (1.2-6.7); Basophils % 0.1; Eosinophils % 0.6; HCT 27.5 % (40.0-50.0); HGB 9.2 g/dL (13.5-17.5); Immature Grans % 3.8; Lymphocytes % 12.7; Mean Corp. HGB Concentration 33.5 g/dL (32.0-36.0); Mean Corpuscular Hemoglobin 33.1 pg (27.0-33.0); Mean Corpuscular Volume 98.9 fL (80-95); Mean Platelet Volume 9.8 fL (8.0-11.0); Monocytes % 7.8; Platelet Count 333 x1000/uL (130-400); RBC 2.78 m/cumm (4.50-6.00); RBC Distribution Width 14.7 % (11.8-14.1); White Blood Cell Count 14.42 k/cumm (4.4-10.8)
[2017-12-15 07:00] LABS: Anion Gap 6.7 mmol/L (3-11); BUN 24 mg/dL (7-18); CO2 29.3 mmol/L (21.0-32.0); CREATININE 1.09 mg/dL (0.70-1.30); Calcium 8.4 mg/dL (8.5-10.1); Chloride 107 mmol/L (98-107); Glucose 92 mg/dL (70-100); Potassium 3.5 mmol/L (3.5-5.1); Sodium 143 mmol/L (136-145)
[2017-12-15 07:09] LABS: Absolute Basophil Count 0.01 k/cumm (0.0-0.2); Absolute Eosinophil Count 0.09 k/cumm (0.0-0.7)
[2017-12-15 07:36] LABS: Diff Comment Agrees w/ Instrument
--- NOTE | 2017-12-15 07:50 | MERGE_ITS ---
*[facility]* *[facility]* [address] [place] [address] Date of study: 12/15/2017 Transthoracic Echocardiography M-mode, complete 2D, complete spectral Doppler, and color Doppler *STUDY CONCLUSIONS* Summary: 1. Left ventricle: The cavity size was normal. The estimated ejection fraction was 45%. Diffuse hypokinesis. Severe hypokinesis of the basalanteroseptal myocardium. 2. Aortic valve: There was mild regurgitation. 3. Mitral valve: There was moderate regurgitation. 4. Right ventricle: The cavity size was normal. Wall thickness was normal. Systolic function was normal. 5. Atrial septum: No defect or patent foramen ovale was identified. 6. Tricuspid valve: There was moderate regurgitation. 7. Pulmonary arteries: Pulmonary systolic pressure was in the range of 40mm Hg to 50mm Hg. 8. Inferior vena cava: The vessel was patent and normal in size. The respirophasic diameter changes were in the normal range (greater than or equal to 50%), consistent with normal central venous pressure. 9. Pericardium, extracardiac: Small - moderate size circumferential effusion; 1.45 cm posterior, less than 1 cm anterior. There was no echocardiographic evidence for tamponade physiology. *PATIENT PRESENTATION* Height: 172.7cm ((68in) ) S/D Pressure: 106 / 68 Weight: 76.2kg ((167.6lb) ) BSA: 1.9m^2 Test start time: 07:50 AM. Test stop time: 08:40 AM. Suresh Villa REFERRING Suresh Alonso PERFORMING Unknown PERFORMING [facility] [employer] RT Dick Mock)([place]), RDCS *PROCEDURE DATA* Procedure information: The patient was identified by two identifiers. This study was interpreted by [facility]. Pertinent images and digital data are archived for permanent storage and are available for subsequent review. Comparison was made to the study of 07/05/2013. Study status: STAT. Transthoracic echocardiography. M-mode, complete 2D, complete spectral Doppler, and color Doppler. A Transthoracic Echocardiogram was performed. Scanning was performed from the parasternal, apical, subcostal, and suprasternal notch acoustic windows. Images were obtained using an [id number] cardiac ultrasound machine. Image quality was adequate. Study completion: The patient tolerated the procedure well. History: PMH: Hx of cadiomyopahty , chf, hypoxia, lymphoma hx. *CARDIAC ANATOMY* Left ventricle: The cavity size was normal. The estimated ejection fraction was 45%. Diffuse hypokinesis. Regional wall motion abnormalities: Severe hypokinesis of the basalanteroseptal myocardium. There was no evidence of elevated ventricular filling pressure by Doppler parameters. Aortic valve: Trileaflet. Doppler: There was no stenosis. There was mild regurgitation. VTI ratio of LVOT to aortic valve: 0.76. Valve area (VTI): 2.5cm^2. Indexed valve area (VTI): 1.3cm^2/m^2. Peak velocity ratio of LVOT to aortic valve: 0.62. Valve area (Vmax): 2.1cm^2. Indexed valve area (Vmax): 1.1cm^2/m^2. Mean velocity ratio of LVOT to aortic valve: 0.6. Valve area (Vmean): 2cm^2. Indexed valve area (Vmean): 1cm^2/m^2. Mean gradient (S): 3.9mm Hg. Peak gradient (S): 7.3mm Hg. Aorta: Aortic root: The aortic root was normal in size. Ascending aorta: The ascending aorta was normal in size. Mitral valve: Doppler: There was no evidence for stenosis. There was moderate regurgitation. Peak gradient (D): 4.2mm Hg. Left atrium: The atrium was normal in size. Atrial septum: No defect or patent foramen ovale was identified. Right ventricle: The cavity size was normal. Wall thickness was normal. Systolic function was normal. Pulmonic valve: Doppler: There was no evidence for stenosis. There was mild regurgitation. Peak gradient (S): 6.9mm Hg. Tricuspid valve: Doppler: There was moderate regurgitation. Pulmonary artery: Poorly visualized. Pulmonary systolic pressure was in the range of 40mm Hg to 50mm Hg. Right atrium: The atrium was normal in size. Pericardium: Small - moderate size circumferential effusion; 1.45 cm posterior, less than 1 cm anterior. Post pericardiocentesis: There was no echocardiographic evidence for tamponade physiology. Systemic veins: Inferior vena cava: Well visualized. The vessel was patent and normal in size. The respirophasic diameter changes were in the normal range (greater than or equal to 50%), consistent with normal central venous pressure. Baseline ECG: Atrial fibrillation. Measurements Left ventricle Value Reference LV ID, ED, PLAX 4.4 cm 3.5 - 6.0 LV ID, ES, PLAX 3.6 cm 2.1 - 4.0 LV PW thickness, ED, PLAX 0.8 cm LV end-diastolic volume, 1-p A2C 87 ml LV ejection fraction, 1-p A2C 37 % LV end-diastolic volume, 1-p A4C 55 ml LV ejection fraction, 1-p A4C 42 % LV e', lateral 0.101 m/sec LV E/e', lateral 10 LV e', medial 0.118 m/sec LV E/e', medial 9 LV e', average 0.109 m/sec LV E/e', average 9 Ventricular septum Value Reference IVS thickness, ED, PLAX 0.9 cm LVOT Value Reference LVOT ID, A-P 2.1 cm LVOT area 3.3 cm^2 LVOT peak velocity, S 0.84 m/sec LVOT mean velocity, S 0.55 m/sec LVOT VTI, S 15.4 cm LVOT peak gradient, S 2.8 mm Hg LVOT mean gradient, S 1.4 mm Hg Stroke volume (SV), LVOT DP 51 ml Stroke index (SV/bsa), LVOT DP 27 ml/m^2 Aortic valve Value Reference Aortic valve peak velocity, S 1.4 m/sec Aortic valve mean velocity, S 0.93 m/sec Aortic valve VTI, S 20.4 cm Aortic mean gradient, S 3.9 mm Hg Aortic peak gradient, S 7.3 mm Hg VTI ratio, LVOT/AV 0.76 Aortic valve area, VTI 2.5 cm^2 Velocity ratio, peak, LVOT/AV 0.62 Aortic valve area, peak velocity 2.1 cm^2 Velocity ratio, mean, LVOT/AV 0.6 Aortic valve area, mean velocity 2 cm^2 Aortic valve area/bsa, mean velocity 1 cm^2/m^2 Aorta Value Reference Aortic root ID, ED 3.1 cm Ascending aorta ID, A-P, S 3.1 cm RVOT Value Reference RVOT VTI, S 20.5 cm Left atrium Value Reference LA ID, A-P, ES 3.9 cm LA ID/bsa, A-P 2.0 cm/m^2 <=2.2 LA area, ES, A4C 20.6 cm^2 8.8 - 23.4 LA area, ES, A2C 20 cm^2 LA volume/bsa, ES, 1-p A4C 35 ml/m^2 LA volume, ES, 2-p 60 ml LA volume/bsa, ES, 2-p 32 ml/m^2 LA/aortic root ratio 1.24 Mitral valve Value Reference Mitral E-wave peak velocity 1.02 m/sec Mitral peak gradient, D 4.2 mm Hg Pulmonary veins Value Reference Pulmonary vein peak velocity, S 0.23 m/sec Pulmonary vein peak velocity, D 0.81 m/sec Pulmonary vein velocity ratio, peak, 0.28 S/D Tricuspid valve Value Reference Tricuspid regurg peak velocity 3.3 m/sec Tricuspid peak RV-RA gradient 43.1 mm Hg Right atrium Value Reference RA area, ES, A4C 14.6 cm^2 8.3 - 19.5 Pulmonic valve Value Reference Pulmonic peak gradient, S 6.9 mm Hg Legend: (L) and (H) norma values outside specified reference range. I have personally reviewed the images and have reviewed and edited the reported findings. Electronically signed by Suresh Yu MD 12/15/2017 11:12
--- NOTE | 2017-12-15 08:25 | NT_ITS ---
PHYSICAL THERAPY NOTE 12/15/17 Hold PT services this morning, pt with increased confusion last night, scheduled to have echocardiogram this am Kriss Gimenez PT
[2017-12-15] MEDS: Spironolactone 25 MG TAB 12.5 MG PO (09:02)
[2017-12-15] MEDS: Apixaban 5 MG TAB PO ×2 (09:04→21:26)
[2017-12-15] MEDS: Ascorbic Acid 500 MG TAB PO (09:04)
[2017-12-15] MEDS: Aspirin 81 MG CHEW PO (09:04)
[2017-12-15] MEDS: Omeprazole 20 MG CAPCR PO ×2 (09:04→21:26)
[2017-12-15] MEDS: predniSONE 20 MG TAB 40 MG PO (09:04)
[2017-12-15] MEDS: Potassium Chloride 10 MEQ CAPCR 20 MEQ PO ×2 (09:04→21:28)
[2017-12-15] MEDS: Furosemide 20 MG/2 ML VIAL IVP ×2 (09:05→16:10)
[2017-12-15] MEDS: Budesonide 0.5 MG/2 ML UPD VIAL UPD ×2 (09:08→21:28)
--- NOTE | 2017-12-15 09:38 | PDOC.CMPRO ---
Care Management Progress Note S/O: Dejuan presented with increased confusion last night per RN: Isabella. CM spoke with Yasmani who identified his own confusion and remembered the events. He had an ECHO today which MD reports shows some improvement. Dejuan was sitting in his chair visiting with his family, CM reviewed Advance Directive document and Yasmani requested one for review, which CM provided. CM will complete with Yasmani and Luana tomorrow. No change to overall plan. A: 62 year old male admitted to [facility] with pneumonia 12/06/17. P: Dejuan will have no change in status today. Discharge disposition to be determined. CM to continue to provide support to patient and family regarding discharge planning and disposition.
--- NOTE | 2017-12-15 13:35 | INPTTR_ITS ---
PHYSICAL THERAPY PROGRESS NOTE Date: 12/15/17 PRECAUTIONS: Fall precautions SUBJECTIVE: Pt lying in bed, agreeable to therapy session. Nursing stating patient is stable enough to participate in PT. Pt reports his shortness of breath has improved since yesterday and he would like to get out of bed. OBJECTIVE General observation: 2liters 02 NC, telemetry, BP/02 monitor, IV RUE PAIN: no c/o pain BED MOBILITY/TRANSFERS Supine-sit: independent Sit-stand: SBA with FWW Bed-chair: SBA with FWW Stand-sit: SBA GAIT * recommend sneakers for gait mobility Assistive Device FWW Weightbearing full Assist: SBA Distance: [id number]. Pt with step through gait pattern and slow vincent , 2 liters 02 NC and IV in tow. 02 sats 86-93% during gait session. recovery 94 % on 2 liters. Pt left up in chair after session completed. THEREX: bilateral ankle pumps, long arc quad 20 reps, hip flexion 10 reps, bicep curls 10reps. ASSESSMENT: Pt able to participate in gait and therex today with minimal shortness of breath, requires instruction in pacing and energy conservation to maintain 02 sats >92% as they tend to fall to mid 80's with exertion, recovers quickly with rest break. Pt fatigues easily, will benefit from continued strengthening and mobility training. PLAN: Progress strengthening Progress gait mobility TREATMENT CODES/TIME: 25min TAX1 TP x1 1325 Kriss Gimenez PT
[2017-12-15] MEDS: Metoprolol 5 MG/5 ML VIAL IVP (16:45)
[2017-12-15] MEDS: Normal Saline Flush 10 ML SYR IVP (16:45)
[2017-12-15] MEDS: Simvastatin 10 MG TAB PO (21:28)
--- NOTE | 2017-12-15 21:33 | PGE_ITS ---
DATE: December 15, 2017 ASSESSMENT AND PLAN: #1. Congestive heart failure. He has had a good diuresis. His weight is down to 76.6 kg. I think he has more to go before he reaches a dry weight. Continue IV furosemide 20 mg b.i.d. Continue pota ssium replacement orally. #2. Atrial fibrillation. Rate control remains an issue. He has a somewhat labile heart rate. Cont inue diltiazem infusion and oral metoprolol. The goal is to transition to both oral metoprolol and d iltiazem but, thus far, it has not worked out that we can make that transition. Contingency is to st art amiodarone which we may need to consider tomorrow. #3. Disposition. Continue to monitor in the ICU in acute care status. His came out late this afternoon and said that his wishes were really to be DNR/DNI and that he really did not understand th e conversation in the Emergency Room. We will discuss this further with the patient tomorrow. Presley nue FULL CODE for now, but there appears to be some movement toward DNR/DNI status. REASON FOR ADMISSION: Congestive heart failure/hypoxia/dyspnea. SUBJECTIVE: Since starting on IV Lasix he has been feeling a bit better day by day. Less cough. Le ss wheezing. He is working with Physical Therapy. He still has poor exercise tolerance but has been able to ambulate relatively independently with a walker. Heart rate continues to be difficult to control. He will run into episodes of atrial fibrillation wi th heart rates in the 160s and we uptitrate the Cardizem drip, but then he begins to slow down and th en have pauses and we have to stop the drip. We have been up-titrating and down-titrating the drip n ow for several days. He has had some IV metoprolol as well. He has not had any recurrent chest pain. Cough is improving. No fever, chills, or rigors. OBJECTIVE: Vital signs: Temperature 36.0, he has been afebrile. Blood pressure 100/79. Respiratory rate 22. Pulse 160. Saturation 97% on 2 liters. General: On exam he is somewhat disheveled appearing but in no significant distress. No audible whe ezing. No real respiratory distress. He looked comfortable. He was smiling. Lungs: Respiratory exam is unchanged, with decreased breath sounds on the left and some rales at the right upper. Heart: Rapid and regular. Abdomen: Nontender. Lower extremities: Just trace edema. LABORATORY EVALUATION: White count 14.42 thousand, hemoglobin 9.2, hematocrit 27.5, platelets 333,00 0, 75 segs, 12 lymphs, no bands. Sodium 143, potassium 3.5, BUN 24, creatinine 1.09, blood sugar 92. Echocardiogram today shows EF 45% with basal anteroseptal hypokinesis.
--- NOTE | 2017-12-15 22:20 | NUR.NOTE ---
Nursing Note: Dropped a 2200 simvastatin in pt's room. Crisp it hit the floor and was unable to find it. Wasted it in pyxis and obtained a new one.
[2017-12-16] VITALS (45 sets, daily range): BP systolic 79–116; BP diastolic 44–87; PULSE 61–125; RESP 14–34; TEMP 36.5–36.8; O2SAT 80–100
[2017-12-16] MEDS: Metoprolol 50 MG TAB 25 MG PO ×2 (05:04→11:30)
[2017-12-16 07:18] LABS: Abs Immature Grans 0.24 k/cumm (0.0-0.09); Absolute Basophil Count 0.01 k/cumm (0.0-0.2); Absolute Lymphocyte Count 1.57 k/cumm (1.2-3.4); Absolute Monocyte Count 0.96 k/cumm (0.11-0.7); Basophils % 0.1; Eosinophils % 0.8; HCT 27.4 % (40.0-50.0); HGB 9.2 g/dL (13.5-17.5); Immature Grans % 1.8; Lymphocytes % 11.8; Mean Corp. HGB Concentration 33.6 g/dL (32.0-36.0); Mean Corpuscular Hemoglobin 33.2 pg (27.0-33.0); Mean Corpuscular Volume 98.9 fL (80-95); Mean Platelet Volume 10.2 fL (8.0-11.0); Monocytes % 7.2; Neutrophils % 78.3; Platelet Count 304 x1000/uL (130-400); RBC 2.77 m/cumm (4.50-6.00); RBC Distribution Width 14.6 % (11.8-14.1)
[2017-12-16 07:22] LABS: Absolute Eosinophil Count 0.11 k/cumm (0.0-0.7); Absolute Neutrophil Count 10.41 k/cumm (1.2-6.7)
[2017-12-16 07:29] LABS: BUN 25 mg/dL (7-18); CREATININE 0.94 mg/dL (0.70-1.30); Calcium 8.4 mg/dL (8.5-10.1); Chloride 105 mmol/L (98-107); Glucose 84 mg/dL (70-100); Potassium 3.6 mmol/L (3.5-5.1); Sodium 142 mmol/L (136-145)
[2017-12-16] MEDS: Budesonide 0.5 MG/2 ML UPD VIAL UPD ×2 (08:18→21:27)
--- NOTE | 2017-12-16 09:03 | PDOC.CMPRO ---
Care Management Progress Note S/O: Dejuan was reviewed during interdisciplinary rounds; Per MD, Dejuan will likely require new home O2 upon discharge and pulmonary follow up as well. CM will support coordination as Dejuan resides in [place], [place]. MAYE was unable to connect with Dejuan while Luana was here this morning to complete AD document, was able to speak with Dejuan regarding his code status and reflect his wishes correctly. CM will continue to follow. A: 62 year old male admitted to [facility] with pneumonia 12/06/17. P: Dejuan continues to make small clinical gains. He will return home when ready per MD, he will follow up with pulmonology, cardioloogy, his PCP and will likely have new home O2 and possible new VNA supports as well. CM to continue to provide support to patient and family regarding discharge planning and disposition.
--- NOTE | 2017-12-16 09:07 | CMPROGNOTE_ITS ---
Care Management Progress Note S/O: Dejuan was reviewed during interdisciplinary rounds; Per MD, Dejuan will likely require new home O2 upon discharge and pulmonary follow up as well. CM will support coordination as Dejuan resides in [place], [place]. MAYE was unable to connect with Dejuan while Luana was here this morning to complete AD document, was able to speak with Dejuan regarding his code status and reflect his wishes correctly. CM will continue to follow. A: 62 year old male admitted to [facility] with pneumonia 12/06/17. P: Dejuan continues to make small clinical gains. He will return home when ready per MD, he will follow up with pulmonology, cardioloogy, his PCP and will likely have new home O2 and possible new VNA supports as well. CM to continue to provide support to patient and family regarding discharge planning and disposition.
[2017-12-16] MEDS: predniSONE 20 MG TAB PO (09:26)
[2017-12-16] MEDS: Ascorbic Acid 500 MG TAB PO (09:27)
[2017-12-16] MEDS: Potassium Chloride 10 MEQ CAPCR 20 MEQ PO ×2 (09:28→21:27)
[2017-12-16] MEDS: Omeprazole 20 MG CAPCR PO ×2 (09:29→21:25)
[2017-12-16] MEDS: Aspirin 81 MG CHEW PO (09:30)
[2017-12-16] MEDS: Apixaban 5 MG TAB PO ×2 (09:31→21:26)
[2017-12-16] MEDS: Furosemide 20 MG/2 ML VIAL IVP ×2 (09:32→18:01)
--- NOTE | 2017-12-16 09:36 | INPTTR_ITS ---
PHYSICAL THERAPY PROGRESS NOTE Date: 12/16/17 PRECAUTIONS: Fall precautions SUBJECTIVE: Pt in bed, states he is feeling good. He is off oxygen and not experiencing wheezing or shortness of breath. Agreeable to mobilize to chair for breakfast, RN recommended hold gait due to elevated heart rate. OBJECTIVE General observation: telemetry, BP/02 monitor, IV RUE PAIN: no c/o pain BED MOBILITY/TRANSFERS Supine-sit: independent Sit-stand: SBA with FWW Bed-chair: supervision with FWW Stand-sit: SBA GAIT * recommend sneakers for gait mobility Assistive Device FWW Weightbearing full Assist: SBA Distance: 3ft bed to chair further gait witheld due to heart rate 116 -145bpm. 02 sats 86-92% on room air. THEREX: bilateral ankle pumps, long arc quad 20 reps, hip flexion 20reps ASSESSMENT: Pt feeling good, 02 sats decrease with exertion on room air to 86-88 % but recover with sitting rest break to 92% after instruction in breathing and pacing of activity. Gait training in hallway witheld due to heart rate up to 145bpm. PLAN: Progress strengthening Progress gait mobility TREATMENT CODES/TIME: 24min TAX1 TP x1 9:23 Kriss Gimenez PT
[2017-12-16] MEDS: Spironolactone 25 MG TAB 12.5 MG PO (09:43)
[2017-12-16] MEDS: Normal Saline 500 ML 10 ML IV (12:00)
[2017-12-16] MEDS: Nystatin POWDER 60 GM JAR TP ×2 (12:28→21:28)
--- NOTE | 2017-12-16 14:13 | INPTTR_ITS ---
PHYSICAL THERAPY PROGRESS NOTE Date: 12/16/17 PRECAUTIONS: Fall precautions SUBJECTIVE: Pt up in chair, agreeable to therapy session, wanting to get back to bed after session completed. OBJECTIVE General observation: telemetry, R IV PAIN: no c/o pain BED MOBILITY/TRANSFERS Sit-stand: SBA with FWW Stand-sit: supervision Chair-bed: SBA with FWW Sit-supine: HOB flat, independent GAIT * recommend sneakers for gait mobility Assistive Device FWW Weightbearing full Assist: SBA Distance: 1ooft. Pt instructed in pacing and energy conservation techniques with gait, cues to stay inside walker with making turns. THEREX: Performed seated ankle pumps, long arc quads and hip flexion x 20 reps, bicep curls x 20 reps ASSESSMENT: Mobilizing well with transfers and FWW. Will benefit from continued strengthening and progression of gait over weekend. PLAN: Progress strengthening Progress gait mobility TREATMENT CODES/TIME: 25min TAx1 TAx1 TP x1 1324 Kriss Gimenez PT
--- NOTE | 2017-12-16 15:08 | PGE_ITS ---
PROGRESS NOTE DATE: December 16, 2017 @ 1456 hours ASSESSMENT/PLAN: 1. Congestive heart failure. Continues to diurese nicely. His net out over the last 48 hours is 5.5 liters and his weight is down to 73 kg. Will continue on IV Furosemide, potassium replacement, agai n trying to achieve a dry weight for him to optimize cardiorespiratory function. 2. Rapid atrial fibrillation. He continues to be quite erratic with his heart rate; any activity get s his heart rate up into the 160's/170's; yet when he is asleep, he will slow down into the 60's. We have not had any luck stopping the Cardizem drip as yet. The plan is to continue Cardizem drip unti l he's fully diuresed and his sleep apnea is under better control, both of which could be exacerbatin g the rate. Again contingency to consider adding Amiodarone. 3. Obstructive sleep apnea. He is witnessed having prolonged apneic episodes. I discussed the case with Dr. Leon - she feels this could be a temporary situation with his congestive heart failure ; recommended continuing diuresis, supplement with CPAP at night and as-needed during the daytime. H e'll need an outpatient sleep study if it continues to be a problem. 4. Intertrigo. He has some yeast in the skin folds; will Rx Nystatin. 5. Disposition. We talked about his Code Status. He's filling out an Advanced Directive with Care M anagement. He's quite clear he does not want aggressive resuscitative measures in the event of a car diac arrest. Will change him to DNR/DNI. +++++++++++++++++++ REASON FOR ADMISSION: Congestive heart failure; right upper lobe infiltrate; rapid AFib. SUBJECTIVE: Overall his breathing is a little better. He's using the incentive spirometer and acape lla; getting up some clear sputum. He's working with Physical Therapy and is able to ambulate indepe ndently with a walker. Heart rates remain quite variable; he'll get up into the 160's, slow down and go into the 50's. The Diltiazem drip is constantly titrated up and down accordingly. He's been able to be weaned off O2 maintaining sats in the mid 90's. OBJECTIVE: Vital Signs - his temperature 36.8, he remains afebrile; blood pressure 86/59, respirator y rate is 27, pulse 74, satting 90% on room air. On exam he's sitting up in the chair; he looks much more comfortable and he's much more alert. He ap peared fully lucid; only mildly anxious. His LUNG sounds on the left notable for absent breath sounds all the way up about one-half to three-q uarters, but the apex sounded clear. On the right mostly clear with improvement in the expiratory wh eezes from previous exams. No rales were heard. HEART is rapid and irregular. ABDOMEN nontender. LOWER EXTREMITIES just trace edema. LABORATORY DATA: His white count is 13.3 thousand, hemoglobin 9.2, hematocrit 22.4, platelets 304,00 0, 78 segs, 11 lymphs, no bands. Sodium 142, potassium 3.6, BUN 25, creatinine 0.94, blood sugar 84.
[2017-12-16] MEDS: Normal Saline Flush 10 ML SYR IVP ×2 (18:02→21:27)
[2017-12-16] MEDS: Metoprolol 25 MG TAB PO (18:02)
[2017-12-16] MEDS: Simvastatin 10 MG TAB PO (21:27)
[2017-12-16] MEDS: Melatonin 3 MG TAB 6 MG PO (21:27)
[2017-12-17] VITALS (39 sets, daily range): BP systolic 73–108; BP diastolic 46–85; PULSE 54–143; RESP 10–29; TEMP 35.4–36.7; O2SAT 87–100
[2017-12-17] MEDS: Metoprolol 25 MG TAB PO ×3 (01:17→11:45)
[2017-12-17] MEDS: Normal Saline Flush 10 ML SYR IVP ×2 (06:20→16:03)
[2017-12-17 07:20] LABS: Abs Immature Grans 0.17 k/cumm (0.0-0.09); Absolute Basophil Count 0.01 k/cumm (0.0-0.2); Absolute Eosinophil Count 0.05 k/cumm (0.0-0.7); Absolute Monocyte Count 0.65 k/cumm (0.11-0.7); Absolute Neutrophil Count 9.96 k/cumm (1.2-6.7); Basophils % 0.1; Eosinophils % 0.4; HCT 28.9 % (40.0-50.0); HGB 9.6 g/dL (13.5-17.5); Immature Grans % 1.4; Lymphocytes % 11.4; Mean Corp. HGB Concentration 33.2 g/dL (32.0-36.0); Mean Corpuscular Volume 99.3 fL (80-95); Mean Platelet Volume 10.2 fL (8.0-11.0); Monocytes % 5.3; Neutrophils % 81.4; Platelet Count 312 x1000/uL (130-400); RBC 2.91 m/cumm (4.50-6.00); RBC Distribution Width 14.9 % (11.8-14.1); White Blood Cell Count 12.24 k/cumm (4.4-10.8)
[2017-12-17 07:31] LABS: ALT 93 U/L (12-78); AST 31 U/L (15-37); Albumin 2.3 g/dL (3.4-5.0); Alkaline Phosphatase 117 U/L (46-116); Anion Gap 5.7 mmol/L (3-11); BUN 27 mg/dL (7-18); Bilirubin, Total 0.6 mg/dL (0.2-1.0); CO2 32.3 mmol/L (21.0-32.0); CREATININE 1.07 mg/dL (0.70-1.30); Calcium 8.3 mg/dL (8.5-10.1); Chloride 104 mmol/L (98-107); Glucose 107 mg/dL (70-100); Potassium 4.1 mmol/L (3.5-5.1); Sodium 142 mmol/L (136-145)
[2017-12-17] MEDS: Potassium Chloride 10 MEQ CAPCR 20 MEQ PO ×2 (08:12→19:57)
[2017-12-17] MEDS: Furosemide 20 MG/2 ML VIAL IVP ×2 (08:12→16:02)
[2017-12-17] MEDS: Aspirin 81 MG CHEW PO (08:12)
[2017-12-17] MEDS: Ascorbic Acid 500 MG TAB PO (08:13)
[2017-12-17] MEDS: predniSONE 20 MG TAB PO (08:13)
[2017-12-17] MEDS: Apixaban 5 MG TAB PO ×2 (08:13→19:56)
[2017-12-17] MEDS: Spironolactone 25 MG TAB 12.5 MG PO (08:13)
[2017-12-17] MEDS: Omeprazole 20 MG CAPCR PO ×2 (08:13→19:56)
--- NOTE | 2017-12-17 09:00 | INPTTR_ITS ---
PHYSICAL THERAPY PROGRESS NOTE Date: 12/17/17 PRECAUTIONS: Fall SUBJECTIVE: Indicated he is feeling less SOB today. OBJECTIVE PAIN: No complaints of pain. BED MOBILITY/TRANSFERS Up to chair with nursing. Sit-stand: SBA Stand-sit: SBA GAIT Assistive Device FWW Weightbearing Full Assist: SBA Distance: 100ft with increase in HR to 117b/m VITALS: HR with ambulation increased to 117/b range, decreased to 96 b/m post ambulation and use of urinal. O2 level noted at 92% at start of session and 96% post ambulation while on room air only. Minimal SOB with ambulation. THEREX: Performed bilateral LE AP, LAQs, seated hip flexion and bilateral UE shoulder flexion to 80-90 degrees x 20 reps each. ASSESSMENT: Tolerated today's session well, but due to having to use urinal he did not ambulate further today. After use of urinal patient expressed he felt like he had done enough for this morning. PLAN: Continue to focus on strengthening and improved ambulation for better ADL function. TREATMENT CODES/TIME: TA/ TP (28 minutes), 9:00 to 9:28
[2017-12-17] MEDS: Budesonide 0.5 MG/2 ML UPD VIAL UPD ×2 (09:05→19:56)
[2017-12-17] MEDS: Amiodarone 200 MG TAB 400 MG PO ×2 (09:39→19:56)
[2017-12-17] MEDS: Nystatin POWDER 60 GM JAR TP ×2 (09:39→19:58)
[2017-12-17 11:33] LABS: NT-proBNP 3297 pg/mL
--- NOTE | 2017-12-17 12:12 | PDOC.PROG ---
Date of Service: 12/17/17 Time of Service: 12:12 Assessment/Plan - Assessment/Plan (1) Acute on chronic systolic heart failure, NYHA class 3 Assessment: Improving as demonstrated by improvement in his level of dyspnea and decreased requirement for oxygen supplementation as well as decreased peripheral edema and a declining proBNP which is now down to 3000 from a high of 16,000. It appears that his cardiomyopathy is multifactorial. According to Dr. Suresh Yu's last note from December 2016 patient has both an ischemic component from atherosclerotic heart disease as well as radiation from his previous Hodgkin's lymphoma treatment. However it also now appears that there is a component from his valvular heart disease as he has at least moderate mitral regurgitation and mild aortic insufficiency. The acute component to his heart failure was contributed by his rapid atrial fibrillation in the setting of his chronic cardiomyopathy and valvular heart disease. Plan: Continue with IV Lasix for another 24 hours and switch to oral. Continue with oral spironolactone. Monitor his BUN and creatinine and electrolytes. When his blood pressures more stable I will add a low dose JORGE inhibitor or angiotensin receptor james to his regimen once he is reached euvolemic. Patient may need an outpatient stress MPI to evaluate his risk for further ischemic events. It appears that his last stress MPI here at [facility] was February 2013. I will consult with his photographic double this next week (2) Atrial fibrillation with rapid ventricular response Plan: Begin amiodarone oral loading. We will switch his metoprolol to carvedilol and discontinue his diltiazem. Continue apixaban for anticoagulation and stroke prevention (3) Moderate mitral regurgitation Plan: Diurese to try to achieve euvolemic. Continue anticoagulation for atrial fibrillation. Continue to work on rate and/or rhythm control with beta blockers and amiodarone (4) Obstructive sleep apnea Plan: Trial of nocturnal CPAP. Arrange outpatient PSG upon discharge (5) Pulmonary hypertension due to left heart valvular disease Plan: Continue diuresis to euvolemic state. Once he is euvolemic and his blood pressures are stabilized then we will try low-dose JORGE inhibitor or ARB History of Present Illness - History of Present Illness Chief Complaint: A. fib with RVR, acute on chronic CHF History of Present Illness: Mr. Cummings has had a prolonged complicated hospital course after multiple treatments for community-acquired pneumonia. During this hospitalization he was not responding to antibiotic treatment and finally ended up with a workup including a CT scan of his chest and an echocardiogram. CT scan showed a stable right upper lobe infiltrate that was read as a pneumonia. He had no pulmonary embolus and no thoracic aortic aneurysm. He was noted to have stable bilateral pleural effusions. Echocardiogram done 2 days ago demonstrated mild to moderate left ventricular dysfunction with an EF of 45% with diffuse hypokinesis and severe hypokinesis of his basal anteroseptal wall. He also has moderate mitral regurgitation and mild aortic insufficiency. He also has moderate pulmonary hypertension and moderate tricuspid regurgitation. He has been suspected of having obstructive sleep apnea as he has had documented nocturnal hypoxemia. He has been advised that he needs an outpatient sleep study. We will put him on a trial of nocturnal BiPAP. Mr. Cummings feels much better today he is less short of breath. At rest and even with short walks around the ICU without oxygen he is not short of breath. His pedal edema has improved. He denies any chest pain or pressure. His atrial fibrillation remains under variable control. Heart rate has been in the 90s to low 100s but at times is gotten up into the 120s and required resumption of his IV diltiazem. However because of low blood pressure readings at times his diltiazem drip has to be discontinued. He is on both oral Lopressor 25 mg 4 times a day as well as diltiazem 30 mg 4 times a day. In spite of this we have not been able to control his atrial fibrillation. He is anticoagulated with apixaban 5 Serrano grams twice a day. I am starting him on amiodarone 400 mg twice a day she will stay on for 2 weeks and then decrease to 400 mg daily for 2 weeks then decrease to 200 mg daily. I will ask his photographic double to follow-up in consultation next week while the patient is an inpatient. Review of Systems - Review of Systems Constitutional: denies: Fever Respiratory: denies: Cough, Shortness of Breath, Sputum Cardiovascular: Edema. denies: Chest Pain, Palpitations, Light Headedness Gastrointestinal: denies: Nausea, Vomiting, Abdominal Pain - Medications/Allergies Allergies/Adverse Reactions: Allergies Allergy/AdvReac Type Severity Reaction Status Date / Time amoxicillin Allergy Severe Unverified 12/06/17 16:52 potassium Allergy Severe ITCHING, Unverified 12/06/17 16:52 RASH silver Allergy Intermediate SKIN RASH Unverified 12/06/17 16:52 nickel Allergy Mild SKIN RASH Unverified 12/06/17 16:52 acetaminophen Allergy Unknown Unverified 12/06/17 16:52 Iodinated Contrast- Oral and Allergy Unknown Unverified 12/06/17 16:52 IV Dye copper [Copper] Allergy Unverified 12/06/17 16:52 pravastatin AdvReac Unknown MUSCLE Unverified 12/06/17 16:52 ACHES Medications: Current Medications Al Hydrox/Mg Hydrox/Simethicone (Mylanta Liquid) 30 ml PO Q2H PRN PRN Alteplase, Recombinant (Cathflo Activase) 2 mg IJ DIRECTED [facility] Last Admin: 12/14/17 18:30 Dose: 2 mg Amiodarone HCl (Cordarone) 400 mg PO BID [facility] Last Admin: 12/17/17 09:39 Dose: 400 mg Apixaban (Eliquis) 5 mg PO BID [facility] Last Admin: 12/17/17 08:13 Dose: 5 mg Ascorbic Acid (Vitamin C) 500 mg PO DAILY [facility] Last Admin: 12/17/17 08:13 Dose: 500 mg Aspirin () 81 mg PO DAILY [facility] Last Admin: 12/17/17 08:12 Dose: 81 mg Budesonide (Pulmicort Updraft) 0.5 mg UPD BID [facility] Last Admin: 12/17/17 09:05 Dose: 0.5 mg Dimethicone/Zinc Oxide (Nessa Protect Cream) 0 gm TP PRN PRN Docusate Sodium (Colace) 100 mg PO TID PRN PRN Furosemide (Lasix) 20 mg IVP BID@0800,1600 [facility] Last Admin: 12/17/17 08:12 Dose: 20 mg Sodium Chloride (Saline 500ml Bag) 500 mls @ 0 mls/hr IV PRN PRN PRN Reason: As Directed Last Admin: 12/16/17 12:00 Dose: 10 mls/hr Diltiazem HCl 125 mg/ Sodium (Chloride) 125 mls @ 5 mls/hr IV INFUSION [facility] PRN Reason: Protocol Last Titration: 12/17/17 09:39 Dose: 0 ml/hr, 0 mls/hr IV Miscellaneous Supplies () 1 each IV DIRECTED [facility] Ibuprofen (Motrin) 600 mg PO Q6H PRN PRN Reason: Fever Last Admin: 12/10/17 07:50 Dose: 600 mg Levetiracetam (Keppra) 250 mg PO BID [facility] Last Admin: 12/17/17 08:13 Dose: 250 mg Levetiracetam (Keppra) 1,000 mg PO BID [facility] Last Admin: 12/17/17 08:12 Dose: 1,000 mg Lorazepam (Ativan) 0.5 mg PO QID PRN PRN Last Admin: 12/14/17 10:44 Dose: 0.5 mg Magnesium Hydroxide (Milk Of Magnesia) 30 ml PO DAILY PRN PRN Melatonin () 6 mg PO HS PRN PRN Last Admin: 12/16/17 21:27 Dose: 6 mg Metoprolol Tartrate (Lopressor Injection) 5 mg IVP Q2H PRN Last Admin: 12/15/17 16:45 Dose: 5 mg Metoprolol Tartrate (Lopressor) 25 mg PO Q6H [facility] Last Admin: 12/17/17 11:45 Dose: 25 mg Multi-Ingredient Mouthwash/Gargle (Biotene Mouthwash) 0 ml MM BID PRN PRN Nystatin (Mycostatin Powder) 0 gm TP BID [facility] Last Admin: 12/17/17 09:39 Dose: 1 applic Omeprazole (Prilosec) 20 mg PO BID [facility] Last Admin: 12/17/17 08:13 Dose: 20 mg Patient's Own Orajel 0 each PO PRN PRN PRN Reason: For tooth pain. Polyethylene Glycol (Miralax) 17 gm PO DAILY PRN PRN PRN Reason: Constipation Potassium Chloride (Micro-K 10) 20 meq PO BID [facility] Last Admin: 12/17/17 08:12 Dose: 20 meq Prednisone (Deltasone) 30 mg PO DAILY [facility] PRN Reason: Taper Stop: 12/24/17 08:29 Last Admin: 12/17/17 08:13 Dose: 30 mg Simvastatin (Zocor) 10 mg PO HS [facility] Last Admin: 12/16/17 21:27 Dose: 10 mg Sodium Chloride (Saline Flush 10 Ml Syringe) 0 ml IVP PRN PRN Last Admin: 12/17/17 06:20 Dose: 30 ml Spironolactone (Aldactone) 12.5 mg PO DAILY [facility] Last Admin: 12/17/17 08:13 Dose: 12.5 mg Sterile Water () 0 ml IJ TODAY [facility] Objective - Exam Vitals and I&O: Vital Signs Temp 36.7 C 12/17/17 11:32 Pulse 82 12/17/17 09:01 Resp 22 12/17/17 09:01 BP 97/59 12/17/17 09:01 Pulse Ox 98 12/17/17 11:32 Intake & Output 12/16/17 12/17/17 12/17/17 23:59 11:59 23:59 Intake Total 1039 1343 Output Total 600 1800 Balance 439 -457 Weight 74 kg Intake: IV 119 443 Oral 920 900 Output: Urine 600 1800 Other: Urine Color Pale Straw Yellow Urine Appearance Clear Clear Urine Odor Normal None Comment Urine since having lasix IV is now light yellow/clear. Voiding via urinal. SG 1.010, pH 6.5 Stool Occult Blood Negative Stool Size Large Stool Characteristics Soft Formed Brown Voiding Methods Bedside Commode Urinal General: Alert, Oriented x3, Cooperative, No acute distress Lungs: Clear to auscultation, Normal air movement Cardiovascular: Murmurs, Other (Irregularly irregular and slightly tachycardic) Abdomen: Normal bowel sounds, Soft. denies: Tenderness Extremities: Edema (Trace of pedal edema) Neurological: Normal speech, Strength at 5/5 X4 ext, Normal tone Psych/Mental Status: Mental status NL, Mood NL - Results Results: Laboratory Results WBC 12.24 k/cumm (4.4-10.8) H 12/17/17 06:25 RBC 2.91 m/cumm (4.50-6.00) L 12/17/17 06:25 Hgb 9.6 g/dL (13.5-17.5) L 12/17/17 06:25 Hct 28.9 % (40.0-50.0) L 12/17/17 06:25 MCV 99.3 fL (80-95) H 12/17/17 06:25 MCH 33.0 pg (27.0-33.0) 12/17/17 06:25 MCHC 33.2 g/dL (32.0-36.0) 12/17/17 06:25 RDW 14.9 % (11.8-14.1) H 12/17/17 06:25 Plt Count 312 x1000/uL (130-400) 12/17/17 06:25 MPV 10.2 fL (8.0-11.0) 12/17/17 06:25 Abs Immat Gran (auto) Cancelled 12/06/17 17:00 Immature Gran % 1.4 12/17/17 06:25 Neutrophils % 81.4 12/17/17 06:25 Lymphocytes % 11.4 12/17/17 06:25 Monocytes % 5.3 12/17/17 06:25 Eosinophils % 0.4 12/17/17 06:25 Basophils % 0.1 12/17/17 06:25 Absolute Neutrophils 9.96 k/cumm (1.2-6.7) H 12/17/17 06:25 Band Neutrophils 4.0 % 12/14/17 06:08 Absolute Lymphocytes 1.40 k/cumm (1.2-3.4) 12/17/17 06:25 Absolute Monocytes 0.65 k/cumm (0.11-0.7) 12/17/17 06:25 Absolute Eosinophils 0.05 k/cumm (0.0-0.7) 12/17/17 06:25 Absolute Basophils 0.01 k/cumm (0.0-0.2) 12/17/17 06:25 Metamyelocytes 3.0 % 12/15/17 06:15 Myelocytes Cancelled 12/06/17 17:00 Promyelocytes Cancelled 12/06/17 17:00 Nucleated RBCs Cancelled 12/06/17 17:00 Differential Comment Agrees w/ instrument 12/15/17 06:15 Atypical Lymphocytes 0 12/13/17 06:20 Other Cell Type Cancelled 12/06/17 17:00 RBC Morphology See below 12/14/17 06:08 Polychromasia Present 12/14/17 06:08 Hypochromasia Cancelled 12/06/17 17:00 Xanthochromia Absent 12/06/17 19:30 Poikilocytosis 1+ 12/14/17 06:08 Basophilic Stippling Cancelled 12/06/17 17:00 Anisocytosis Cancelled 12/06/17 17:00 Microcytosis Cancelled 12/06/17 17:00 Macrocytosis Cancelled 12/06/17 17:00 Spherocytes Cancelled 12/06/17 17:00 Target Cells Cancelled 12/06/17 17:00 Tear Drop Cells Cancelled 12/06/17 17:00 Ovalocytes Cancelled 12/06/17 17:00 Stomatocytes Cancelled 12/06/17 17:00 Armstrong-Slaughters Bodies Cancelled 12/06/17 17:00 Delmi Cells Cancelled 12/06/17 17:00 Acanthocytes (Spur) Cancelled 12/06/17 17:00 Schistocytes Cancelled 12/06/17 17:00 D-Dimer 1186 ng/mlFEU (<500) H 12/14/17 12:25 Sample Site Right radial 12/08/17 19:55 pCO2 29 mmHg (34-47) L 12/08/17 19:55 pO2 170 mmHg (83-108) H 12/08/17 19:55 O2 Saturation < 5 % (94-98) L 12/08/17 19:55 ABG pH 7.43 (7.35-7.45) 12/08/17 19:55 ABG HCO3 19 mmol/L (22-28) L 12/08/17 19:55 ABG Total CO2 Not Applicable 12/08/17 19:55 ABG Base Excess mmol/L (-3-3) 12/08/17 19:55 Sodium 142 mmol/L (136-145) 12/17/17 06:25 Potassium 4.1 mmol/L (3.5-5.1) 12/17/17 06:25 Chloride 104 mmol/L (98-107) 12/17/17 06:25 Carbon Dioxide 32.3 mmol/L (21.0-32.0) H 12/17/17 06:25 Anion Gap 5.7 mmol/L (3-11) 12/17/17 06:25 BUN 27 mg/dL (7-18) H 12/17/17 06:25 Creatinine 1.07 mg/dL (0.70-1.30) 12/17/17 06:25 Estimated GFR/1.73 m2 >= 60.00 (mL/min/1.73m2) 12/17/17 06:25 Glucose 107 mg/dL (70-100) H 12/17/17 06:25 Lactate 0.9 mmol/L (0.6-1.4) 12/08/17 19:55 Calcium 8.3 mg/dL (8.5-10.1) L 12/17/17 06:25 Magnesium 2.0 mg/dL (1.8-2.4) 12/13/17 06:20 Total Bilirubin 0.6 mg/dL (0.2-1.0) 12/17/17 06:25 AST 31 U/L (15-37) 12/17/17 06:25 ALT 93 U/L (12-78) H 12/17/17 06:25 Alkaline Phosphatase 117 U/L (46-116) H 12/17/17 06:25 Troponin I < 0.02 ng/mL (0.00-0.06) 12/06/17 18:30 NT-Pro-B Natriuret Pep 3297 pg/mL (-299) H 12/17/17 11:06 Total Protein 6.0 g/dL (6.4-8.2) L 12/17/17 06:25 Albumin 2.3 g/dL (3.4-5.0) L 12/17/17 06:25 Urine Color Yellow (Yellow) 12/07/17 11:50 Urine Clarity Sl cloudy 12/07/17 11:50 Urine pH 5.5 (5-8) 12/07/17 11:50 Ur Specific [place] >= 1.030 (1.005-1.025) H 12/07/17 11:50 Urine Protein 100 mg/dL (Negative) H 12/07/17 11:50 Urine Ketones 15 mg/dL (Negative) H 12/07/17 11:50 Urine Blood Negative (Negative) 12/07/17 11:50 Urine Nitrite Negative (Negative) 12/07/17 11:50 Urine Bilirubin Small (Negative) H 12/07/17 11:50 Urine Urobilinogen 4.0 EU/dL (Up TO 0.2) H 12/07/17 11:50 Ur Leukocyte Esterase Negative (Negative) 12/07/17 11:50 Urine RBC Negative (0-2) 12/07/17 11:50 Urine WBC 3-5 HPF (0-5) 12/07/17 11:50 Ur Epithelial Cells Rare HPF (Negative) 12/07/17 11:50 Urine Crystals Negative HPF (Negative) 12/07/17 11:50 Urine Bacteria Many HPF (Negative) 12/07/17 11:50 Urine Casts 3-5 coarse granular LPF (Negative) 12/07/17 11:50 Urine Mucus Moderate (Negative) 12/07/17 11:50 Urine Other Negative (Negative) 12/07/17 11:50 Ur Culture Indicated? Yes 12/07/17 11:50 Urine Glucose Negative mg/dL (Negative) 12/07/17 11:50 CSF Tube Number 4 12/06/17 19:30 CSF Color Colorless 12/06/17 19:30 CSF Clarity Clear 12/06/17 19:30 CSF WBC 1 /mm3 (0-5) 12/06/17 19:30 CSF RBC 2 /mm3 (0-5) 12/06/17 19:30 CSF Neutrophils 0 % (0-2) 12/06/17 19:30 CSF Lymphocytes 65 % (63-99) 12/06/17 19:30 CSF Monos/Macrophages 35 % (3-37) 12/06/17 19:30 CSF Other Cells 0 % (0-0) 12/06/17 19:30 CSF Diff Comment Performed 12/06/17 19:30 CSF Glucose 82 mg/dL (40-70) H 12/06/17 19:30 CSF Total Protein 31 mg/dL (15-45) 12/06/17 19:30 Vancomycin Trough 35.1 ug/mL (10.0-20.0) H* 12/13/17 06:20
--- NOTE | 2017-12-17 12:16 | PDOC.PROG_ITS ---
Date of Service: 12/17/17 Time of Service: 12:12 Assessment/Plan - Assessment/Plan (1) Acute on chronic systolic heart failure, NYHA class 3 Assessment: Improving as demonstrated by improvement in his level of dyspnea and decreased requirement for oxygen supplementation as well as decreased peripheral edema and a declining proBNP which is now down to 3000 from a high of 16,000. It appears that his cardiomyopathy is multifactorial. According to Dr. Suresh Yu's last note from December 2016 patient has both an ischemic component from atherosclerotic heart disease as well as radiation from his previous Hodgkin's lymphoma treatment. However it also now appears that there is a component from his valvular heart disease as he has at least moderate mitral regurgitation and mild aortic insufficiency. The acute component to his heart failure was contributed by his rapid atrial fibrillation in the setting of his chronic cardiomyopathy and valvular heart disease. Plan: Continue with IV Lasix for another 24 hours and switch to oral. Continue with oral spironolactone. Monitor his BUN and creatinine and electrolytes. When his blood pressures more stable I will add a low dose JORGE inhibitor or angiotensin receptor james to his regimen once he is reached euvolemic. Patient may need an outpatient stress MPI to evaluate his risk for further ischemic events. It appears that his last stress MPI here at [facility] was February 2013. I will consult with his hydrologist this next week (2) Atrial fibrillation with rapid ventricular response Plan: Begin amiodarone oral loading. We will switch his metoprolol to carvedilol and discontinue his diltiazem. Continue apixaban for anticoagulation and stroke prevention (3) Moderate mitral regurgitation Plan: Diurese to try to achieve euvolemic. Continue anticoagulation for atrial fibrillation. Continue to work on rate and/or rhythm control with beta blockers and amiodarone (4) Obstructive sleep apnea Plan: Trial of nocturnal CPAP. Arrange outpatient PSG upon discharge (5) Pulmonary hypertension due to left heart valvular disease Plan: Continue diuresis to euvolemic state. Once he is euvolemic and his blood pressures are stabilized then we will try low-dose JORGE inhibitor or ARB History of Present Illness - History of Present Illness Chief Complaint: A. fib with RVR, acute on chronic CHF History of Present Illness: Mr. Cummings has had a prolonged complicated hospital course after multiple treatments for community-acquired pneumonia. During this hospitalization he was not responding to antibiotic treatment and finally ended up with a workup including a CT scan of his chest and an echocardiogram. CT scan showed a stable right upper lobe infiltrate that was read as a pneumonia. He had no pulmonary embolus and no thoracic aortic aneurysm. He was noted to have stable bilateral pleural effusions. Echocardiogram done 2 days ago demonstrated mild to moderate left ventricular dysfunction with an EF of 45% with diffuse hypokinesis and severe hypokinesis of his basal anteroseptal wall. He also has moderate mitral regurgitation and mild aortic insufficiency. He also has moderate pulmonary hypertension and moderate tricuspid regurgitation. He has been suspected of having obstructive sleep apnea as he has had documented nocturnal hypoxemia. He has been advised that he needs an outpatient sleep study. We will put him on a trial of nocturnal BiPAP. Mr. Cummings feels much better today he is less short of breath. At rest and even with short walks around the ICU without oxygen he is not short of breath. His pedal edema has improved. He denies any chest pain or pressure. His atrial fibrillation remains under variable control. Heart rate has been in the 90s to low 100s but at times is gotten up into the 120s and required resumption of his IV diltiazem. However because of low blood pressure readings at times his diltiazem drip has to be discontinued. He is on both oral Lopressor 25 mg 4 times a day as well as diltiazem 30 mg 4 times a day. In spite of this we have not been able to control his atrial fibrillation. He is anticoagulated with apixaban 5 Serrano grams twice a day. I am starting him on amiodarone 400 mg twice a day she will stay on for 2 weeks and then decrease to 400 mg daily for 2 weeks then decrease to 200 mg daily. I will ask his hydrologist to follow-up in consultation next week while the patient is an inpatient. Review of Systems - Review of Systems Constitutional: denies: Fever Respiratory: denies: Cough, Shortness of Breath, Sputum Cardiovascular: Edema. denies: Chest Pain, Palpitations, Light Headedness Gastrointestinal: denies: Nausea, Vomiting, Abdominal Pain - Medications/Allergies Allergies/Adverse Reactions: Allergies Allergy/AdvReac Type Severity Reaction Status Date / Time amoxicillin Allergy Severe Unverified 12/06/17 16:52 potassium Allergy Severe ITCHING, Unverified 12/06/17 16:52 RASH silver Allergy Intermediate SKIN RASH Unverified 12/06/17 16:52 nickel Allergy Mild SKIN RASH Unverified 12/06/17 16:52 acetaminophen Allergy Unknown Unverified 12/06/17 16:52 Iodinated Contrast- Oral and Allergy Unknown Unverified 12/06/17 16:52 IV Dye copper [Copper] Allergy Unverified 12/06/17 16:52 pravastatin AdvReac Unknown MUSCLE Unverified 12/06/17 16:52 ACHES Medications: Current Medications Al Hydrox/Mg Hydrox/Simethicone (Mylanta Liquid) 30 ml PO Q2H PRN PRN Alteplase, Recombinant (Cathflo Activase) 2 mg IJ DIRECTED [facility] Last Admin: 12/14/17 18:30 Dose: 2 mg Amiodarone HCl (Cordarone) 400 mg PO BID [facility] Last Admin: 12/17/17 09:39 Dose: 400 mg Apixaban (Eliquis) 5 mg PO BID [facility] Last Admin: 12/17/17 08:13 Dose: 5 mg Ascorbic Acid (Vitamin C) 500 mg PO DAILY [facility] Last Admin: 12/17/17 08:13 Dose: 500 mg Aspirin () 81 mg PO DAILY [facility] Last Admin: 12/17/17 08:12 Dose: 81 mg Budesonide (Pulmicort Updraft) 0.5 mg UPD BID [facility] Last Admin: 12/17/17 09:05 Dose: 0.5 mg Dimethicone/Zinc Oxide (Nessa Protect Cream) 0 gm TP PRN PRN Docusate Sodium (Colace) 100 mg PO TID PRN PRN Furosemide (Lasix) 20 mg IVP BID@0800,1600 [facility] Last Admin: 12/17/17 08:12 Dose: 20 mg Sodium Chloride (Saline 500ml Bag) 500 mls @ 0 mls/hr IV PRN PRN PRN Reason: As Directed Last Admin: 12/16/17 12:00 Dose: 10 mls/hr Diltiazem HCl 125 mg/ Sodium (Chloride) 125 mls @ 5 mls/hr IV INFUSION [facility] PRN Reason: Protocol Last Titration: 12/17/17 09:39 Dose: 0 ml/hr, 0 mls/hr IV Miscellaneous Supplies () 1 each IV DIRECTED [facility] Ibuprofen (Motrin) 600 mg PO Q6H PRN PRN Reason: Fever Last Admin: 12/10/17 07:50 Dose: 600 mg Levetiracetam (Keppra) 250 mg PO BID [facility] Last Admin: 12/17/17 08:13 Dose: 250 mg Levetiracetam (Keppra) 1,000 mg PO BID [facility] Last Admin: 12/17/17 08:12 Dose: 1,000 mg Lorazepam (Ativan) 0.5 mg PO QID PRN PRN Last Admin: 12/14/17 10:44 Dose: 0.5 mg Magnesium Hydroxide (Milk Of Magnesia) 30 ml PO DAILY PRN PRN Melatonin () 6 mg PO HS PRN PRN Last Admin: 12/16/17 21:27 Dose: 6 mg Metoprolol Tartrate (Lopressor Injection) 5 mg IVP Q2H PRN Last Admin: 12/15/17 16:45 Dose: 5 mg Metoprolol Tartrate (Lopressor) 25 mg PO Q6H [facility] Last Admin: 12/17/17 11:45 Dose: 25 mg Multi-Ingredient Mouthwash/Gargle (Biotene Mouthwash) 0 ml MM BID PRN PRN Nystatin (Mycostatin Powder) 0 gm TP BID [facility] Last Admin: 12/17/17 09:39 Dose: 1 applic Omeprazole (Prilosec) 20 mg PO BID [facility] Last Admin: 12/17/17 08:13 Dose: 20 mg Patient's Own Orajel 0 each PO PRN PRN PRN Reason: For tooth pain. Polyethylene Glycol (Miralax) 17 gm PO DAILY PRN PRN PRN Reason: Constipation Potassium Chloride (Micro-K 10) 20 meq PO BID [facility] Last Admin: 12/17/17 08:12 Dose: 20 meq Prednisone (Deltasone) 30 mg PO DAILY [facility] PRN Reason: Taper Stop: 12/24/17 08:29 Last Admin: 12/17/17 08:13 Dose: 30 mg Simvastatin (Zocor) 10 mg PO HS [facility] Last Admin: 12/16/17 21:27 Dose: 10 mg Sodium Chloride (Saline Flush 10 Ml Syringe) 0 ml IVP PRN PRN Last Admin: 12/17/17 06:20 Dose: 30 ml Spironolactone (Aldactone) 12.5 mg PO DAILY [facility] Last Admin: 12/17/17 08:13 Dose: 12.5 mg Sterile Water () 0 ml IJ TODAY [facility] Objective - Exam Vitals and I&O: Vital Signs Temp 36.7 C 12/17/17 11:32 Pulse 82 12/17/17 09:01 Resp 22 12/17/17 09:01 BP 97/59 12/17/17 09:01 Pulse Ox 98 12/17/17 11:32 Intake & Output 12/16/17 12/17/17 12/17/17 23:59 11:59 23:59 Intake Total 1039 1343 Output Total 600 1800 Balance 439 -457 Weight 74 kg Intake: IV 119 443 Oral 920 900 Output: Urine 600 1800 Other: Urine Color Pale Straw Yellow Urine Appearance Clear Clear Urine Odor Normal None Comment Urine since having lasix IV is now light yellow/clear. Voiding via urinal. SG 1.010, pH 6.5 Stool Occult Blood Negative Stool Size Large Stool Characteristics Soft Formed Brown Voiding Methods Bedside Commode Urinal General: Alert, Oriented x3, Cooperative, No acute distress Lungs: Clear to auscultation, Normal air movement Cardiovascular: Murmurs, Other (Irregularly irregular and slightly tachycardic) Abdomen: Normal bowel sounds, Soft. denies: Tenderness Extremities: Edema (Trace of pedal edema) Neurological: Normal speech, Strength at 5/5 X4 ext, Normal tone Psych/Mental Status: Mental status NL, Mood NL - Results Results: Laboratory Results WBC 12.24 k/cumm (4.4-10.8) H 12/17/17 06:25 RBC 2.91 m/cumm (4.50-6.00) L 12/17/17 06:25 Hgb 9.6 g/dL (13.5-17.5) L 12/17/17 06:25 Hct 28.9 % (40.0-50.0) L 12/17/17 06:25 MCV 99.3 fL (80-95) H 12/17/17 06:25 MCH 33.0 pg (27.0-33.0) 12/17/17 06:25 MCHC 33.2 g/dL (32.0-36.0) 12/17/17 06:25 RDW 14.9 % (11.8-14.1) H 12/17/17 06:25 Plt Count 312 x1000/uL (130-400) 12/17/17 06:25 MPV 10.2 fL (8.0-11.0) 12/17/17 06:25 Abs Immat Gran (auto) Cancelled 12/06/17 17:00 Immature Gran % 1.4 12/17/17 06:25 Neutrophils % 81.4 12/17/17 06:25 Lymphocytes % 11.4 12/17/17 06:25 Monocytes % 5.3 12/17/17 06:25 Eosinophils % 0.4 12/17/17 06:25 Basophils % 0.1 12/17/17 06:25 Absolute Neutrophils 9.96 k/cumm (1.2-6.7) H 12/17/17 06:25 Band Neutrophils 4.0 % 12/14/17 06:08 Absolute Lymphocytes 1.40 k/cumm (1.2-3.4) 12/17/17 06:25 Absolute Monocytes 0.65 k/cumm (0.11-0.7) 12/17/17 06:25 Absolute Eosinophils 0.05 k/cumm (0.0-0.7) 12/17/17 06:25 Absolute Basophils 0.01 k/cumm (0.0-0.2) 12/17/17 06:25 Metamyelocytes 3.0 % 12/15/17 06:15 Myelocytes Cancelled 12/06/17 17:00 Promyelocytes Cancelled 12/06/17 17:00 Nucleated RBCs Cancelled 12/06/17 17:00 Differential Comment Agrees w/ instrument 12/15/17 06:15 Atypical Lymphocytes 0 12/13/17 06:20 Other Cell Type Cancelled 12/06/17 17:00 RBC Morphology See below 12/14/17 06:08 Polychromasia Present 12/14/17 06:08 Hypochromasia Cancelled 12/06/17 17:00 Xanthochromia Absent 12/06/17 19:30 Poikilocytosis 1+ 12/14/17 06:08 Basophilic Stippling Cancelled 12/06/17 17:00 Anisocytosis Cancelled 12/06/17 17:00 Microcytosis Cancelled 12/06/17 17:00 Macrocytosis Cancelled 12/06/17 17:00 Spherocytes Cancelled 12/06/17 17:00 Target Cells Cancelled 12/06/17 17:00 Tear Drop Cells Cancelled 12/06/17 17:00 Ovalocytes Cancelled 12/06/17 17:00 Stomatocytes Cancelled 12/06/17 17:00 [place] Bodies Cancelled 12/06/17 17:00 Delmi Cells Cancelled 12/06/17 17:00 Acanthocytes (Spur) Cancelled 12/06/17 17:00 Schistocytes Cancelled 12/06/17 17:00 D-Dimer 1186 ng/mlFEU (<500) H 12/14/17 12:25 Sample Site Right radial 12/08/17 19:55 pCO2 29 mmHg (34-47) L 12/08/17 19:55 pO2 170 mmHg (83-108) H 12/08/17 19:55 O2 Saturation < 5 % (94-98) L 12/08/17 19:55 ABG pH 7.43 (7.35-7.45) 12/08/17 19:55 ABG HCO3 19 mmol/L (22-28) L 12/08/17 19:55 ABG Total CO2 Not Applicable 12/08/17 19:55 ABG Base Excess mmol/L (-3-3) 12/08/17 19:55 Sodium 142 mmol/L (136-145) 12/17/17 06:25 Potassium 4.1 mmol/L (3.5-5.1) 12/17/17 06:25 Chloride 104 mmol/L (98-107) 12/17/17 06:25 Carbon Dioxide 32.3 mmol/L (21.0-32.0) H 12/17/17 06:25 Anion Gap 5.7 mmol/L (3-11) 12/17/17 06:25 BUN 27 mg/dL (7-18) H 12/17/17 06:25 Creatinine 1.07 mg/dL (0.70-1.30) 12/17/17 06:25 Estimated GFR/1.73 m2 >= 60.00 (mL/min/1.73m2) 12/17/17 06:25 Glucose 107 mg/dL (70-100) H 12/17/17 06:25 Lactate 0.9 mmol/L (0.6-1.4) 12/08/17 19:55 Calcium 8.3 mg/dL (8.5-10.1) L 12/17/17 06:25 Magnesium 2.0 mg/dL (1.8-2.4) 12/13/17 06:20 Total Bilirubin 0.6 mg/dL (0.2-1.0) 12/17/17 06:25 AST 31 U/L (15-37) 12/17/17 06:25 ALT 93 U/L (12-78) H 12/17/17 06:25 Alkaline Phosphatase 117 U/L (46-116) H 12/17/17 06:25 Troponin I < 0.02 ng/mL (0.00-0.06) 12/06/17 18:30 NT-Pro-B Natriuret Pep 3297 pg/mL (-299) H 12/17/17 11:06 Total Protein 6.0 g/dL (6.4-8.2) L 12/17/17 06:25 Albumin 2.3 g/dL (3.4-5.0) L 12/17/17 06:25 Urine Color Yellow (Yellow) 12/07/17 11:50 Urine Clarity Sl cloudy 12/07/17 11:50 Urine pH 5.5 (5-8) 12/07/17 11:50 Ur Specific [place] >= 1.030 (1.005-1.025) H 12/07/17 11:50 Urine Protein 100 mg/dL (Negative) H 12/07/17 11:50 Urine Ketones 15 mg/dL (Negative) H 12/07/17 11:50 Urine Blood Negative (Negative) 12/07/17 11:50 Urine Nitrite Negative (Negative) 12/07/17 11:50 Urine Bilirubin Small (Negative) H 12/07/17 11:50 Urine Urobilinogen 4.0 EU/dL (Up TO 0.2) H 12/07/17 11:50 Ur Leukocyte Esterase Negative (Negative) 12/07/17 11:50 Urine RBC Negative (0-2) 12/07/17 11:50 Urine WBC 3-5 HPF (0-5) 12/07/17 11:50 Ur Epithelial Cells Rare HPF (Negative) 12/07/17 11:50 Urine Crystals Negative HPF (Negative) 12/07/17 11:50 Urine Bacteria Many HPF (Negative) 12/07/17 11:50 Urine Casts 3-5 coarse granular LPF (Negative) 12/07/17 11:50 Urine Mucus Moderate (Negative) 12/07/17 11:50 Urine Other Negative (Negative) 12/07/17 11:50 Ur Culture Indicated? Yes 12/07/17 11:50 Urine Glucose Negative mg/dL (Negative) 12/07/17 11:50 CSF Tube Number 4 12/06/17 19:30 CSF Color Colorless 12/06/17 19:30 CSF Clarity Clear 12/06/17 19:30 CSF WBC 1 /mm3 (0-5) 12/06/17 19:30 CSF RBC 2 /mm3 (0-5) 12/06/17 19:30 CSF Neutrophils 0 % (0-2) 12/06/17 19:30 CSF Lymphocytes 65 % (63-99) 12/06/17 19:30 CSF Monos/Macrophages 35 % (3-37) 12/06/17 19:30 CSF Other Cells 0 % (0-0) 12/06/17 19:30 CSF Diff Comment Performed 12/06/17 19:30 CSF Glucose 82 mg/dL (40-70) H 12/06/17 19:30 CSF Total Protein 31 mg/dL (15-45) 12/06/17 19:30 Vancomycin Trough 35.1 ug/mL (10.0-20.0) H* 12/13/17 06:20
--- NOTE | 2017-12-17 16:34 | PDOC.CMPRO ---
Care Management Progress Note S/O: Dejuan was sitting up in his recliner and receiving an updraft treatment. A: 62 year old male admitted to [facility] with pneumonia 12/06/17. P: Dejuan will return home with his , Luana, and hopes to resume his regular duties around the house and helping to raise their 12 y.o. daughter, Latia. Arrange for follow up with pulmonology, cardiology, his PCP and HH services if needed. RT will coordinate any home oxygen needs.
--- NOTE | 2017-12-17 16:41 | CMPROGNOTE_ITS ---
Care Management Progress Note S/O: Dejuan was sitting up in his recliner and receiving an updraft treatment. A: 62 year old male admitted to [facility] with pneumonia 12/06/17. P: Dejuan will return home with his , Luana, and hopes to resume his regular duties around the house and helping to raise their 12 y.o. daughter, Latia. Arrange for follow up with pulmonology, cardiology, his PCP and HH services if needed. RT will coordinate any home oxygen needs.
[2017-12-17] MEDS: Carvedilol 3.125 MG TAB PO (19:56)
[2017-12-17] MEDS: Simvastatin 10 MG TAB PO (21:53)
[2017-12-18] VITALS (18 sets, daily range): BP systolic 102–138; BP diastolic 57–84; PULSE 54–89; RESP 16–21; TEMP 36–37.1; O2SAT 73–100
[2017-12-18] MEDS: Budesonide 0.5 MG/2 ML UPD VIAL UPD ×2 (07:02→20:21)
[2017-12-18 07:14] LABS: Iron 166 ug/dL (50-175); Total Iron Binding Capacity 208 ug/dL (250-450); Transferrin Sat 80 % (20-55)
[2017-12-18 07:34] LABS: Anion Gap 7.9 mmol/L (3-11); BUN 36 mg/dL (7-18); CO2 31.1 mmol/L (21.0-32.0); CREATININE 1.19 mg/dL (0.70-1.30); Calcium 8.6 mg/dL (8.5-10.1); Chloride 102 mmol/L (98-107); Glucose 82 mg/dL (70-100); NT-proBNP 1693 pg/mL; Potassium 4.1 mmol/L (3.5-5.1); Sodium 141 mmol/L (136-145)
[2017-12-18 07:50] LABS: Folate 8.2 ng/mL (8.6-20.0); Vitamin B12 506 pg/mL (193-986)
[2017-12-18 07:53] LABS: Ferritin 1679 ng/mL (8-388)
[2017-12-18] MEDS: Normal Saline Flush 10 ML SYR IVP (07:54)
[2017-12-18] MEDS: Furosemide 20 MG/2 ML VIAL IVP (07:54)
[2017-12-18] MEDS: predniSONE 20 MG TAB PO (07:54)
[2017-12-18] MEDS: Spironolactone 25 MG TAB 12.5 MG PO (07:55)
[2017-12-18] MEDS: Potassium Chloride 10 MEQ CAPCR 20 MEQ PO (07:56)
[2017-12-18] MEDS: Aspirin 81 MG CHEW PO (07:56)
[2017-12-18] MEDS: Ascorbic Acid 500 MG TAB PO (07:56)
[2017-12-18] MEDS: Apixaban 5 MG TAB PO ×2 (07:56→20:20)
[2017-12-18] MEDS: Omeprazole 20 MG CAPCR PO ×2 (07:56→20:20)
[2017-12-18] MEDS: Amiodarone 200 MG TAB 400 MG PO ×2 (07:56→20:19)
[2017-12-18] MEDS: Nystatin POWDER 60 GM JAR TP (07:56)
[2017-12-18] MEDS: Carvedilol 3.125 MG TAB PO ×2 (07:56→20:20)
--- NOTE | 2017-12-18 09:02 | PDOC.PROG_ITS ---
Date of Service: 12/18/17 Time of Service: 09:00 Assessment/Plan - Assessment/Plan (1) Acute on chronic systolic heart failure, NYHA class 3 Assessment: Patient continues to improve with diuresis. As noted above he has lost nearly 8 kg during this hospitalization. His BUN and creatinine started to rise slightly. BUNs up to 36 and creatinine is at 1.19. Held his furosemide for this morning but will resume furosemide in an oral form beginning tomorrow morning. Once his BUN and creatinine have stabilized I will attempt to start him on low-dose JORGE inhibitor or angiotensin receptor james. Will continue low-dose carvedilol for both rate control as well as congestive heart failure. Plan: Transfer to medical/surgical on telemetry. Continue to monitor for recurrent A. fib. Continue judicious diuresis. Add an JORGE inhibitor or ARB once he is euvolemic. (2) Atrial fibrillation with rapid ventricular response Plan: Continue apixaban for anticoagulation and stroke prevention. Continue low-dose carvedilol and continue loading dose of amiodarone. (3) Moderate mitral regurgitation Plan: Continue diuresis to euvolemic then adjust his diuretics to maintain euvolemic and stable BUN and creatinine. Further evaluation by cardiology tomorrow to consider long-term evaluation for ischemic heart disease as well as valvular repair/replacement (4) Obstructive sleep apnea Assessment: Patient slept well last night with CPAP. Patient needs a formal sleep study so he can qualify for home CPAP Plan: Continue nighttime CPAP was in the hospital and arrange for PSG upon discharge (5) Pulmonary hypertension due to left heart valvular disease Plan: Continue judicious diuresis to euvolemic. Add an JORGE inhibitor or ARB as tolerated History of Present Illness - History of Present Illness Chief Complaint: A. fib with RVR, CHF History of Present Illness: Mr. Cummings continues to improve daily. He has no dyspnea at rest and even with light activity around the ICU he is not dyspneic. His weight has dropped 1.3 kg since yesterday and overall he has lost nearly 8 kg over the course of his hospitalization. His weight today is 72.7 kg. His net fluid loss yesterday was 1200 mL. Patient converted to normal sinus rhythm overnight around 10 PM last night. Review of Systems - Review of Systems Constitutional: denies: Fever Respiratory: denies: Cough Cardiovascular: Edema (Bilateral pedal edema). denies: Chest Pain, Palpitations Gastrointestinal: Constipation. denies: Nausea, Vomiting, Abdominal Pain - Medications/Allergies Allergies/Adverse Reactions: Allergies Allergy/AdvReac Type Severity Reaction Status Date / Time amoxicillin Allergy Severe Unverified 12/06/17 16:52 potassium Allergy Severe ITCHING, Unverified 12/06/17 16:52 RASH silver Allergy Intermediate SKIN RASH Unverified 12/06/17 16:52 nickel Allergy Mild SKIN RASH Unverified 12/06/17 16:52 acetaminophen Allergy Unknown Unverified 12/06/17 16:52 Iodinated Contrast- Oral and Allergy Unknown Unverified 12/06/17 16:52 IV Dye copper [Copper] Allergy Unverified 12/06/17 16:52 pravastatin AdvReac Unknown MUSCLE Unverified 12/06/17 16:52 ACHES Medications: Current Medications Al Hydrox/Mg Hydrox/Simethicone (Mylanta Liquid) 30 ml PO Q2H PRN PRN Alteplase, Recombinant (Cathflo Activase) 2 mg IJ DIRECTED [facility] Last Admin: 12/14/17 18:30 Dose: 2 mg Amiodarone HCl (Cordarone) 400 mg PO BID [facility] Last Admin: 12/18/17 07:56 Dose: 400 mg Apixaban (Eliquis) 5 mg PO BID [facility] Last Admin: 12/18/17 07:56 Dose: 5 mg Ascorbic Acid (Vitamin C) 500 mg PO DAILY [facility] Last Admin: 12/18/17 07:56 Dose: 500 mg Aspirin () 81 mg PO DAILY [facility] Last Admin: 12/18/17 07:56 Dose: 81 mg Budesonide (Pulmicort Updraft) 0.5 mg UPD BID [facility] Last Admin: 12/18/17 07:02 Dose: 0.5 mg Carvedilol (Coreg) 3.125 mg PO BID [facility] Last Admin: 12/18/17 07:56 Dose: 3.125 mg Dimethicone/Zinc Oxide (Nessa Protect Cream) 0 gm TP PRN PRN Docusate Sodium (Colace) 100 mg PO TID PRN PRN Sodium Chloride (Saline 500ml Bag) 500 mls @ 0 mls/hr IV PRN PRN PRN Reason: As Directed Last Admin: 12/16/17 12:00 Dose: 10 mls/hr IV Miscellaneous Supplies () 1 each IV DIRECTED [facility] Levetiracetam (Keppra) 250 mg PO BID [facility] Last Admin: 12/18/17 07:54 Dose: 250 mg Levetiracetam (Keppra) 1,000 mg PO BID [facility] Last Admin: 12/18/17 07:54 Dose: 1,000 mg Lorazepam (Ativan) 0.5 mg PO QID PRN PRN Last Admin: 12/14/17 10:44 Dose: 0.5 mg Magnesium Hydroxide (Milk Of Magnesia) 30 ml PO DAILY PRN PRN Melatonin () 6 mg PO HS PRN PRN Last Admin: 12/16/17 21:27 Dose: 6 mg Metoprolol Tartrate (Lopressor Injection) 5 mg IVP Q2H PRN Last Admin: 12/15/17 16:45 Dose: 5 mg Multi-Ingredient Mouthwash/Gargle (Biotene Mouthwash) 0 ml MM BID PRN PRN Last Admin: 12/17/17 21:53 Dose: 30 ml Nystatin (Mycostatin Powder) 0 gm TP BID [facility] Last Admin: 12/18/17 07:56 Dose: 1 applic Omeprazole (Prilosec) 20 mg PO BID [facility] Last Admin: 12/18/17 07:56 Dose: 20 mg Patient's Own Orajel 0 each PO PRN PRN PRN Reason: For tooth pain. Polyethylene Glycol (Miralax) 17 gm PO DAILY PRN PRN PRN Reason: Constipation Potassium Chloride (Micro-K 10) 20 meq PO BID [facility] Last Admin: 12/18/17 07:56 Dose: 20 meq Prednisone (Deltasone) 20 mg PO DAILY [facility] PRN Reason: Taper Stop: 12/24/17 08:29 Last Admin: 12/18/17 07:54 Dose: 20 mg Simvastatin (Zocor) 10 mg PO HS [facility] Last Admin: 12/17/17 21:53 Dose: 10 mg Sodium Chloride (Saline Flush 10 Ml Syringe) 0 ml IVP PRN PRN Last Admin: 12/18/17 07:54 Dose: 30 ml Spironolactone (Aldactone) 12.5 mg PO DAILY [facility] Last Admin: 12/18/17 07:55 Dose: 12.5 mg Sterile Water () 0 ml IJ TODAY [facility] Objective - Exam Vitals and I&O: Vital Signs Temp 36.4 C L 12/18/17 07:36 Pulse 89 12/18/17 08:03 Resp 16 12/18/17 08:03 BP 102/82 12/18/17 08:03 Pulse Ox 99 12/18/17 08:03 Intake & Output 12/17/17 12/17/17 12/18/17 11:59 23:59 11:59 Intake Total 1343 740 452 Output Total 1800 1550 275 Balance -457 -810 177 Weight 74 kg 72.7 kg Intake: IV 443 32 Oral 900 740 420 Output: Urine 1800 1550 275 Other: Urine Color Straw Pale Straw Yellow Urine Appearance Clear Clear Clear Urine Odor None None Strong Comment Voiding via urinal. SG 1.010, pH 6.5 Voiding via urinal. SG 1.010, Voiding via urinal. Voiding Methods Urinal Urinal Urinal General: Alert, Oriented x3, Cooperative, No acute distress Lungs: Clear to auscultation, Normal air movement Cardiovascular: Regular rate, Normal S1, Normal S2, Murmurs. denies: Gallops Abdomen: Normal bowel sounds, Soft. denies: Tenderness, Hepatospenomegaly, Masses Extremities: Edema (1+ bilateral pedal edema), Normal pulses. denies: Tenderness/swelling Skin: denies: Rashes Neurological: Normal speech, Strength at 5/5 X4 ext, Normal tone Psych/Mental Status: Mental status NL, Mood NL - Results Results: Laboratory Results WBC 12.24 k/cumm (4.4-10.8) H 12/17/17 06:25 RBC 2.91 m/cumm (4.50-6.00) L 12/17/17 06:25 Hgb 9.6 g/dL (13.5-17.5) L 12/17/17 06:25 Hct 28.9 % (40.0-50.0) L 12/17/17 06:25 MCV 99.3 fL (80-95) H 12/17/17 06:25 MCH 33.0 pg (27.0-33.0) 12/17/17 06:25 MCHC 33.2 g/dL (32.0-36.0) 12/17/17 06:25 RDW 14.9 % (11.8-14.1) H 12/17/17 06:25 Plt Count 312 x1000/uL (130-400) 12/17/17 06:25 MPV 10.2 fL (8.0-11.0) 12/17/17 06:25 Abs Immat Gran (auto) Cancelled 12/06/17 17:00 Immature Gran % 1.4 12/17/17 06:25 Neutrophils % 81.4 12/17/17 06:25 Lymphocytes % 11.4 12/17/17 06:25 Monocytes % 5.3 12/17/17 06:25 Eosinophils % 0.4 12/17/17 06:25 Basophils % 0.1 12/17/17 06:25 Absolute Neutrophils 9.96 k/cumm (1.2-6.7) H 12/17/17 06:25 Band Neutrophils 4.0 % 12/14/17 06:08 Absolute Lymphocytes 1.40 k/cumm (1.2-3.4) 12/17/17 06:25 Absolute Monocytes 0.65 k/cumm (0.11-0.7) 12/17/17 06:25 Absolute Eosinophils 0.05 k/cumm (0.0-0.7) 12/17/17 06:25 Absolute Basophils 0.01 k/cumm (0.0-0.2) 12/17/17 06:25 Metamyelocytes 3.0 % 12/15/17 06:15 Myelocytes Cancelled 12/06/17 17:00 Promyelocytes Cancelled 12/06/17 17:00 Nucleated RBCs Cancelled 12/06/17 17:00 Differential Comment Agrees w/ instrument 12/15/17 06:15 Atypical Lymphocytes 0 12/13/17 06:20 Other Cell Type Cancelled 12/06/17 17:00 RBC Morphology See below 12/14/17 06:08 Polychromasia Present 12/14/17 06:08 Hypochromasia Cancelled 12/06/17 17:00 Xanthochromia Absent 12/06/17 19:30 Poikilocytosis 1+ 12/14/17 06:08 Basophilic Stippling Cancelled 12/06/17 17:00 Anisocytosis Cancelled 12/06/17 17:00 Microcytosis Cancelled 12/06/17 17:00 Macrocytosis Cancelled 12/06/17 17:00 Spherocytes Cancelled 12/06/17 17:00 Target Cells Cancelled 12/06/17 17:00 Tear Drop Cells Cancelled 12/06/17 17:00 Ovalocytes Cancelled 12/06/17 17:00 Stomatocytes Cancelled 12/06/17 17:00 Armstrong-Mayflower Bodies Cancelled 12/06/17 17:00 Delmi Cells Cancelled 12/06/17 17:00 Acanthocytes (Spur) Cancelled 12/06/17 17:00 Schistocytes Cancelled 12/06/17 17:00 D-Dimer 1186 ng/mlFEU (<500) H 12/14/17 12:25 Sample Site Right radial 12/08/17 19:55 pCO2 29 mmHg (34-47) L 12/08/17 19:55 pO2 170 mmHg (83-108) H 12/08/17 19:55 O2 Saturation < 5 % (94-98) L 12/08/17 19:55 ABG pH 7.43 (7.35-7.45) 12/08/17 19:55 ABG HCO3 19 mmol/L (22-28) L 12/08/17 19:55 ABG Total CO2 Not Applicable 12/08/17 19:55 ABG Base Excess mmol/L (-3-3) 12/08/17 19:55 Sodium 141 mmol/L (136-145) 12/18/17 06:50 Potassium 4.1 mmol/L (3.5-5.1) 12/18/17 06:50 Chloride 102 mmol/L (98-107) 12/18/17 06:50 Carbon Dioxide 31.1 mmol/L (21.0-32.0) 12/18/17 06:50 Anion Gap 7.9 mmol/L (3-11) 12/18/17 06:50 BUN 36 mg/dL (7-18) H D 12/18/17 06:50 Creatinine 1.19 mg/dL (0.70-1.30) 12/18/17 06:50 Estimated GFR/1.73 m2 >= 60.00 (mL/min/1.73m2) 12/18/17 06:50 Glucose 82 mg/dL (70-100) 12/18/17 06:50 Lactate 0.9 mmol/L (0.6-1.4) 12/08/17 19:55 Calcium 8.6 mg/dL (8.5-10.1) 12/18/17 06:50 Magnesium 2.0 mg/dL (1.8-2.4) 12/13/17 06:20 Iron 166 ug/dL (50-175) 12/18/17 06:50 TIBC 208 ug/dL (250-450) L 12/18/17 06:50 Transferrin % Sat 80 % (20-55) H 12/18/17 06:50 Ferritin 1679 ng/mL (8-388) H 12/18/17 06:50 Total Bilirubin 0.6 mg/dL (0.2-1.0) 12/17/17 06:25 AST 31 U/L (15-37) 12/17/17 06:25 ALT 93 U/L (12-78) H 12/17/17 06:25 Alkaline Phosphatase 117 U/L (46-116) H 12/17/17 06:25 Troponin I < 0.02 ng/mL (0.00-0.06) 12/06/17 18:30 NT-Pro-B Natriuret Pep 1693 pg/mL (-299) H 12/18/17 06:50 Total Protein 6.0 g/dL (6.4-8.2) L 12/17/17 06:25 Albumin 2.3 g/dL (3.4-5.0) L 12/17/17 06:25 Vitamin B12 506 pg/mL (193-986) 12/18/17 06:50 Folate 8.2 ng/mL (8.6-20.0) L 12/18/17 06:50 Urine Color Yellow (Yellow) 12/07/17 11:50 Urine Clarity Sl cloudy 12/07/17 11:50 Urine pH 5.5 (5-8) 12/07/17 11:50 Ur Specific [place] >= 1.030 (1.005-1.025) H 12/07/17 11:50 Urine Protein 100 mg/dL (Negative) H 12/07/17 11:50 Urine Ketones 15 mg/dL (Negative) H 12/07/17 11:50 Urine Blood Negative (Negative) 12/07/17 11:50 Urine Nitrite Negative (Negative) 12/07/17 11:50 Urine Bilirubin Small (Negative) H 12/07/17 11:50 Urine Urobilinogen 4.0 EU/dL (Up TO 0.2) H 12/07/17 11:50 Ur Leukocyte Esterase Negative (Negative) 12/07/17 11:50 Urine RBC Negative (0-2) 12/07/17 11:50 Urine WBC 3-5 HPF (0-5) 12/07/17 11:50 Ur Epithelial Cells Rare HPF (Negative) 12/07/17 11:50 Urine Crystals Negative HPF (Negative) 12/07/17 11:50 Urine Bacteria Many HPF (Negative) 12/07/17 11:50 Urine Casts 3-5 coarse granular LPF (Negative) 12/07/17 11:50 Urine Mucus Moderate (Negative) 12/07/17 11:50 Urine Other Negative (Negative) 12/07/17 11:50 Ur Culture Indicated? Yes 12/07/17 11:50 Urine Glucose Negative mg/dL (Negative) 12/07/17 11:50 CSF Tube Number 4 12/06/17 19:30 CSF Color Colorless 12/06/17 19:30 CSF Clarity Clear 12/06/17 19:30 CSF WBC 1 /mm3 (0-5) 12/06/17 19:30 CSF RBC 2 /mm3 (0-5) 12/06/17 19:30 CSF Neutrophils 0 % (0-2) 12/06/17 19:30 CSF Lymphocytes 65 % (63-99) 12/06/17 19:30 CSF Monos/Macrophages 35 % (3-37) 12/06/17 19:30 CSF Other Cells 0 % (0-0) 12/06/17 19:30 CSF Diff Comment Performed 12/06/17 19:30 CSF Glucose 82 mg/dL (40-70) H 12/06/17 19:30 CSF Total Protein 31 mg/dL (15-45) 12/06/17 19:30 Vancomycin Trough 35.1 ug/mL (10.0-20.0) H* 12/13/17 06:20
--- NOTE | 2017-12-18 10:10 | INPTTR_ITS ---
PHYSICAL THERAPY PROGRESS NOTE Date: 12/18/17 PRECAUTIONS: Fall SUBJECTIVE: Doing better today. OBJECTIVE PAIN: No complaints of pain. BED MOBILITY/TRANSFERS Sit-stand: SBA Stand-sit: ANDREA CRUZ Had just walked from SCU to room 205 with nursing so was not interested in walking again right away, but was willing to perform ther ex and static standing balance activities. THEREX: Performed strengthening exercises with bilateral UE/ LEs while in seated position, as per flow sheet and standing balance activities with feet together and in tandem positions with eyes open and closed. Did have some LOB with tandem with eye closed today. Required CGA with each of these balance tasks. Vitals: pre-ex HR of 60b/p with O2 of 97% and post-ex HR of 61b/m with O2 of 96% ASSESSMENT: Tolerated today's session very well. Has been out walking in halls with FWW with nursing this morning. PLAN: Continue with strengthening and balance, both static and dynamic, tasks to improve ADL function. TREATMENT CODES/TIME: TP x 2 (25 minutes), 10:10 to 10:35
[2017-12-18] MEDS: Folic Acid 1 MG TAB PO (10:45)
--- NOTE | 2017-12-18 11:48 | NUR.NOTE ---
Nursing Note: 0936: pt from icu 221 to ms 205. pt ambulatory to room with walker and sbg. pt alert/oriented. pt oriented to call poe and bathroom. pt VS are stable. pt hr is regular, pt on telemetry, pt ls clear with exception of LLL which is absent. pt has active bowel sounds. continue to monitor.
--- NOTE | 2017-12-18 20:22 | PDOC.CMPRO ---
Care Management Progress Note S/O: Sitting up in his recliner and says he is feeling better today. Converted to Sinus rhythm and will be going from ICU to the M/S Unit. A: 62 y.o. male admitted for pneumonia P: Return home to [place], [place] with his . Evaluate for Home service needs: New HH service, Home O2 and follow up appointments with cardiology and pulmonology.
--- NOTE | 2017-12-18 20:28 | CMPROGNOTE_ITS ---
Care Management Progress Note S/O: Sitting up in his recliner and says he is feeling better today. Converted to Sinus rhythm and will be going from ICU to the M/S Unit. A: 62 y.o. male admitted for pneumonia P: Return home to [place], [place] with his . Evaluate for Home service needs : New HH service, Home O2 and follow up appointments with cardiology and pulmonology.
[2017-12-18] MEDS: Simvastatin 10 MG TAB PO (23:19)
[2017-12-19 00:29] VITALS: BP 118/67; PULSE 64; RESP 19; TEMP 35.8; O2SAT 99
[2017-12-19 07:00] VITALS: PULSE 58
[2017-12-19 07:11] LABS: Abs Immature Grans 0.49 k/cumm (0.0-0.09); HCT 30.2 % (40.0-50.0); HGB 10.2 g/dL (13.5-17.5); Mean Corp. HGB Concentration 33.8 g/dL (32.0-36.0); Mean Corpuscular Hemoglobin 33.3 pg (27.0-33.0); Mean Corpuscular Volume 98.7 fL (80-95); Mean Platelet Volume 10.2 fL (8.0-11.0); RBC 3.06 m/cumm (4.50-6.00); RBC Distribution Width 14.8 % (11.8-14.1); White Blood Cell Count 15.85 k/cumm (4.4-10.8)
[2017-12-19 07:20] VITALS: BP 110/72; PULSE 59; RESP 19; TEMP 36.4; O2SAT 100
[2017-12-19 07:31] LABS: Anion Gap 5.8 mmol/L (3-11); BUN 29 mg/dL (7-18); CO2 30.2 mmol/L (21.0-32.0); CREATININE 1.15 mg/dL (0.70-1.30); Calcium 8.5 mg/dL (8.5-10.1); Chloride 102 mmol/L (98-107); Glucose 74 mg/dL (70-100); Magnesium 2.2 mg/dL (1.8-2.4); NT-proBNP 1210 pg/mL; Potassium 3.7 mmol/L (3.5-5.1); Sodium 138 mmol/L (136-145)
[2017-12-19 07:46] LABS: Absolute Eosinophil Count 0.32 k/cumm (0.0-0.7); Absolute Lymphocyte Count 2.38 k/cumm (1.2-3.4); Absolute Monocyte Count 0.95 k/cumm (0.11-0.7); Absolute Neutrophil Count 11.41 k/cumm (1.2-6.7)
[2017-12-19 07:47] LABS: Anisocytosis 1+; Diff Comment Manual Differential; Polychromasia Present
[2017-12-19 07:48] LABS: Poikilocytes 2+
[2017-12-19 07:51] LABS: Platelet Count 329 x1000/uL (130-400)
[2017-12-19] MEDS: Amiodarone 200 MG TAB 400 MG PO (07:58)
[2017-12-19] MEDS: Carvedilol 3.125 MG TAB PO (07:58)
[2017-12-19] MEDS: Apixaban 5 MG TAB PO (07:59)
[2017-12-19] MEDS: Potassium Chloride 10 MEQ TABCR 20 MEQ PO (07:59)
[2017-12-19] MEDS: Omeprazole 20 MG CAPCR PO (07:59)
[2017-12-19] MEDS: Aspirin 81 MG CHEW PO (07:59)
[2017-12-19] MEDS: Spironolactone 25 MG TAB 12.5 MG PO (07:59)
[2017-12-19] MEDS: predniSONE 10 MG TAB PO (07:59)
[2017-12-19] MEDS: Ascorbic Acid 500 MG TAB PO (07:59)
[2017-12-19] MEDS: Folic Acid 1 MG TAB PO (07:59)
[2017-12-19] MEDS: Furosemide 20 MG TAB PO (08:00)
[2017-12-19] MEDS: Normal Saline Flush 10 ML SYR IVP (08:00)
--- NOTE | 2017-12-19 08:21 | INPTTR_ITS ---
PHYSICAL THERAPY PROGRESS NOTE Date: 12/19/17 SUBJECTIVE: Dejuan is hopeful that he will be discharged to home today. He reports that he performed his ther ex program independently this morning, and has been walking a lot. OBJECTIVE PAIN: No c/o pain BED MOBILITY/TRANSFERS Sit-stand: S Stand-sit: S GAIT Assistive Device FWW Weightbearing Full Assist: SBA Distance: 300' Deviation Cuing for appropriate FWW mechanics THEREX: I with UE and LE strengthening program. STAIRS: Up/down 3x4 and 2x6 using 1 rail and a step-to pattern with supervision. ASSESSMENT: Patient tolerated a progression in gait distance with FWW support and cuing for appropriate FWW mechanics. Patient was able to perform stair training with supervision. PLAN: Continue with PT's POC TREATMENT CODES/TIME: 15 minutes; TAx1
--- NOTE | 2017-12-19 09:08 | INDS_ITS ---
PHYSICAL THERAPY INPATIENT DISCHARGE NOTE Date: 12/19/17 Dates of Service: 12/12/17-12/19/17 SUBJECTIVE: NT OBJECTIVE 12/12/17-12/19/17 BED MOBILITY/TRANSFERS: * sneakers on for all transfers Supine-sit: independent Sit-supine: independent Sit-stand supervision Stand- sit: supervision Bed-chair: supervision with FWW Chair-bed: supervision with FWW GAIT: *Sneakers donned for gait training, pt required Higinio to don/doff SBA/supervision with FWW 300ft STAIRS Up/down 5 steps with railing supervision BALANCE: Static sitting normal Dynamic Sitting normal Static Standing fair Dynamic Standing fair ASSESSMENT: Pt is a 62 yr old male admitted with pneumonia in setting of seizure disorder, Hodgkin's disease, chronic anemia, panic attacks, atrial fibrillation, depression. Patient was being seen on the medical floor then transferred to ICU due to decline in respiratory status. Patient was seen for 10 PT visits. Progressed from SBA transfers to independent and supervision, from CGA gait with FWW 3ft to SBA/supervision gait with FWW 300ft, up/down 5 steps with railing supervision. Pt is at functional level to return to home setting, recommend FWW for gait stability and home PT follow up to progress mobility to independent baseline function. GOALS Goals x1 week 1. Supine-sit: independent 2. Sit-Supine: independent 3. Sit-Stand: supervision 4. Stand-sit supervision 5. Bed-chair supervision with FWW 6. Chair-bed supervision with FWW 7. Gait supervision with FWW [id number]. Stairs up/down 2 steps no railing. SBA Pt met goals # 1-8 DISCHARGE RECOMMENDATIONS Home, needs FWW for gait stability, home PT for strengthening and gait training to independent baseline mobility G Codes in the area mobility of walking and moving around: _projected status GP [id number]____[id number] . Discharge status (if discharging) GP [id number]___AS___ Kriss Gimenez PT
[2017-12-19] MEDS: Budesonide 0.5 MG/2 ML UPD VIAL UPD (10:13)
[2017-12-19 10:17] VITALS: O2SAT 97
[2017-12-19 12:00] VITALS: BP 106/51; PULSE 60; RESP 18; TEMP 36.9; O2SAT 98
--- NOTE | 2017-12-19 12:37 | PDOC.CMDIS ---
LACE Index Scoring Tool - Questions: Length of Stay (in days): 14 or more Acuity (Admit via E.D.?): Yes Comorbidities: Congestive Heart Failure, Chronic Pulmonary Disease E.D. Visits: 1 - Answers: Total Score: 16 Risk of Readmission: High Risk Care Management Discharge Reason for Hospitalization: Pnemonia Discharge Plan: He is being discharged home to follow-up with his PCP and go to OP PT at [facility] (his request) since he is not homebound, and states they make multiple trips to this area for medical care for him and his daughter.. He is scheduled for cardiology follow-up with Dr Yu, and the office will call him with an appt. He has a walker at home for home use. Patient/Family Education Needs: RN to review d/c instructions re meds and activity levels. Reviewed Ask me Now questions. Services Needed at Discharge: Physical Therapy
--- NOTE | 2017-12-19 13:03 | PDOC.DISCH_ITS ---
Discharge - Discharge Orders Referrals: Suresh Yu MD [ [facility] STAFF PHYSICIAN] - Other Amb Orders: Cardiac Event Recorder (Outpt) Time Frame: 2 Weeks, Location: Determined By Patient - Discharge Plan Disposition: HOME Condition: Stable Diet:: As Tolerated Equipment/Supplies:: No Equipment Needed Activity:: Activity as Tolerated - Instructions Micromedex Instructions: Atrial Fibrillation (DC), Community Acquired Pneumonia (DC) Additional Instructions: Ziopatch before discharge follow up with Dr Yu in cardiology STOP amiodarone, RESUME metoprolol Eliquis increased from 2.5 mg 2x daily to 5mg 2x daily EKG in 1 week
[2017-12-19 16:38] VITALS: BP 120/70; PULSE 63; RESP 19; TEMP 36.8; O2SAT 94
--- NOTE | 2017-12-19 21:54 | DSE_ITS ---
DATE OF ADMISSION: December 06, 2017 DATE OF DISCHARGE: December 19, 2017 ADMITTING DIAGNOSIS: Community-acquired pneumonia. DISCHARGE DIAGNOSES: 1. Community-acquired pneumonia. 2. Rapid atrial fibrillation. 3. Congestive heart failure. REASON FOR ADMISSION: Dejuan is a pleasant 62-year-old gentleman with multiple medical comorbidities significant for obstructive sleep apnea, paroxysmal atrial fibrillation, systolic heart failure, cor onary artery disease with prior PCI and drug-eluting stents x3 to the left main and LAD (2007), seizu re disorder, depression/anxiety, hyperlipidemia, and moderate mitral regurgitation resulting in pulmo nary hypertension who presented to the Emergency Department on December 06, 2017, with complaints of feve r, weakness, and altered mental status. Prior to his admission he had been evaluated and ultimately admitted to [facility] where he had rapid atrial fibrillation. According to his he wa s there for 24 hours, possibly less, and was ultimately discharged. They were not in agreement with the discharge so the discharge paperwork was not signed. During his stay at [facility] he was found to be febrile with a T-max of 38.7. Chest x-ray was negative. Head CT was negative. It was presumed kurt t he had a sinus infection secondary to complaints of facial pressure and he was sent home with a pre scription for Ceftin which he had not started prior to his presentation to our Emergency Room. Angela p in our ER showed a white blood cell count of 13,000, lactate of 0.9, negative troponins, and negati ve head CT. Chest x-ray showed possible right upper lobe pneumonia despite lack of symptoms aside fr om fever and weakness. He had a lumbar puncture which showed clear CSF. He was admitted to the [facility] for further management. HOSPITAL COURSE: The admitting physician, Dr. Morin, initiated treatment with Levaquin for a presume d community-acquired pneumonia. After a few days with no obvious improvement, cefepime and vancomyci n were added to his regimen as well as corticosteroids. From a respiratory standpoint he seemed to i mprove some. He was adequately fluid resuscitated. Initially his paroxysmal atrial fibrillation was well rate controlled on home dose of metoprolol, however as the days progressed he developed rapid a trial fibrillation. Initially his beta blockers were increased, however this was insufficient to con trol his ventricular rates. He was ultimately started on IV diltiazem which caused occasional pauses and bradycardia. He was never able to transition to oral diltiazem. Ultimately, after consulting [facility], he was started on amiodarone. Over the course of the weekend he spontaneously conver joshua to sinus bradycardia. He also developed some signs of congestive heart failure requiring IV diur esis. Once his pneumonia was effectively treated, he started to make steady gains. He continues wit h some generalized weakness and debilitation, otherwise is feeling markedly improved. Today nursing's only concern was the prolonged QT interval. A 12-lead EKG was obtained which showed a QTc of 498 msec. Discussed the case with Dr. Stapleton, dietetic technician registered at [facility], for further guidance in terms of amiodarone dosing. During his hospitalization he was also found to have an elevated D-dimer. Chest CT obtained on 12/14/17 was negative for pulmona ry embolism. An echocardiogram was obtained on 12/15/17 which showed a LVEF of 45% with diffuse hypoki nesis and severe hypokinesis of the basal anteroseptal myocardium. There was mild aortic regurgitati on, moderate mitral regurgitation. Right ventricular cavity size and systolic function were normal. Elevated pulmonary systolic pressure in the range of 40-50 mmHg. There was also a small to moderate -sized circumferential cardiac effusion of 1.45 cm with no evidence of tamponade physiology. PHYSICAL EXAM: GENERAL: Dejuan is a 62-year-old, male, chronically ill appearing, pale, fatigued. Appear s older than his stated age. In no acute distress. Alert and oriented x3. Pleasant and cooperative , somewhat depressed affect. Well developed and well nourished. VITAL SIGNS: Temperature 36.9 degrees Celsius. Pulse is 60 and regular. Blood pressure 106/51. Re spiratory rate 18. O2 saturation 98% on room air. HEENT: Normocephalic, atraumatic. Conjunctivae clear, sclerae nonicteric. Pupils equally round and reactive to light, intact extraocular movements. Moist mucous membranes, oropharynx clear. NECK: Supple, no JVD. CARDIOVASCULAR: Regular rate and rhythm, S1-S2, no S3 or S4. No murmurs, rubs, gallops, or thrills. RESPIRATORY: Chest expansion is symmetrical, respirations unlabored. Lungs are clear to auscultatio n, diminished bilateral lower lobes. No adventitious breath sounds. ABDOMEN: Round, soft, nontender to palpation with normoactive bowel sounds in all four quadrants. N o hepatosplenomegaly or prominent masses. EXTREMITIES: Lower extremities with trace, nonpitting pedal edema. Intact pulses. NEURO: Nonfocal. LABORATORY DATA: WBC 15.85, hemoglobin 10.2, hematocrit 30.2, platelets 329,000. Sodium 138, potassium 3.7, chloride 102, bicarb 30.2, BUN 29, creatinine 1.15, magnesium 2.2, NT-Pro- BNP 1210. DISCHARGE SUMMARY: Dejuan is a pleasant 62-year-old gentleman with multiple medical comorbidities wh juarez was successfully treated for community-acquired pneumonia but who developed rapid atrial fibrillati on likely in response to his acute illness. He admits to missing his most recent follow-up with Dr. Yu of Cardiology. After discussion with Dr. Stapleton of Electrophysiology at [facility], the decision was made to discontinue his amiodarone given his prolonged QT, in addition to the likelihood that his rapid atrial fibrillation was secondary to an acute bacterial ill ness. I am going to be resuming his metoprolol at 50 mg p.o. b.i.d., which is the actual dose that Leif Cummings had been taking despite evidence that this was, at some point, decreased to 12.5 mg p.o. b.i.d. He was admitted on 2.5 mg p.o. b.i.d. of Eliquis, this was increased to 5 mg p.o. b.i.d. deedee ng his inpatient stay. Repeat 12-lead EKG in one week. Will also plan to discharge Mr. Emiliano davis on a ZIO patch after which he should follow up with Dr. Yu to go over those results and to more accurately assess his atrial fibrillation burden, if any. In addition, we will have him see [facility] as an outpatient for generalized debilitation and weakness. He will be discharged home via private vehicle in stable condition. Encouraged to return to the hospital if he develops a ny further fever, concerning respiratory symptoms, rapid heart rates, or shortness of breath. DISCHARGE MEDICATIONS: 1. Apixaban 5 mg p.o. b.i.d. 2. Vitamin C, 1 tab p.o. daily. 3. Aspirin 81 mg p.o. daily. 4. Vitamin D3 1000 units p.o. daily. 5. Folate 1 mg p.o. daily. 6. Furosemide 20 mg p.o. daily. 7. Keppra 750 mg p.o. b.i.d. 8. Melatonin 5 mg p.o. q.h.s. p.r.n. 9. Metoprolol 50 mg p.o. b.i.d. 10. Nitroglycerin 0.4 mg sublingual tablet p.o. every 5 minutes as needed for chest pain. 11. Shamokin-3 fatty acids, 1 cap p.o. b.i.d. 12. Omeprazole 20 mg p.o. b.i.d. 13. Simvastatin 20 mg p.o. daily. 14. Spironolactone 12.5 mg p.o. daily. 15. Triamcinolone topical cream, apply b.i.d. as directed. 16. Coenzyme Q10 30 mg p.o. daily. Discussed discharge with Dr. Estuardo Barahona who is in agreement.
[2017-12-21 08:35] LABS: Thiamine (Vitamin B1), WB 176 nmol/L (70-180)
[2017-12-21 11:14] LABS: Homocysteine 16.7 umol/L (4.5-12.4)
[2017-12-22 11:05] LABS: Methylmalonic Acid 0.23 nmol/mL (<=0.40)
--- NOTE | 2018-01-09 13:31 | ZIOP_ITS ---
DATE OF DICTATION: January 09, [address]: 13 days, 2 hours, December 19-2017 Atrial fibrillation throughout study. Nocturnal heart rates approximately 50-70 bpm. Daytime heart rates approximately 100 bpm. Rare single PVC vs. aberrantly conducted beat. No VT. No bradycardia or block. No symptoms. No triggered events. Average heart rate 75 bpm, range 30-179 bpm.
== END 2017-12-19 17:00 | disposition home or self-care (01) | DRG 193 ==
PROVIDERS: Family Medicine; Internal Medicine; Admitting Provider General Practice; Emergency Provider Physician Assistant; PCP Emergency Medicine; Visit Provider Internal Medicine
DX: J18.9 Pneumonia, unspecified organism (principal); I50.33 Acute on chronic diastolic (congestive) heart failure; I47.2 Ventricular tachycardia; J44.0 Chronic obstructive pulmonary disease with (acute) lower respiratory infection; J44.1 Chronic obstructive pulmonary disease with (acute) exacerbation; I48.0 Paroxysmal atrial fibrillation; I45.81 Long QT syndrome; R53.1 Weakness; Z73.89 Other problems related to life management difficulty; I27.29 Other secondary pulmonary hypertension; I08.3 Combined rheumatic disorders of mitral, aortic and tricuspid valves; R79.89 Other specified abnormal findings of blood chemistry; R79.1 Abnormal coagulation profile; G47.33 Obstructive sleep apnea (adult) (pediatric); I25.10 Atherosclerotic heart disease of native coronary artery without angina pectoris; Z95.5 Presence of coronary angioplasty implant and graft; G40.909 Epilepsy, unspecified, not intractable, without status epilepticus; F41.8 Other specified anxiety disorders; E78.5 Hyperlipidemia, unspecified; D50.9 Iron deficiency anemia, unspecified; I51.89 Other ill-defined heart diseases
CPT/HCPCS: 36415 ×8; 80048 ×5; 80053 ×6; 83735 ×5; 83880 ×4; 82607; 82746; 83540; 83550; 80202 ×2; 83605; 82728; 82805; 85379; 85025 ×10; 87040 ×2; 80186; 84425; 83090; 71046; 71045 ×2; 71250; 36569; 93306 ×2; 94640 ×11; 94660 ×3; 97530 ×10; 97110 ×10; 97162; 93010 ×2; 0296T; 99232 ×4; 99233 ×3; 99239; J7512 ×9; J1940 ×11; J1720 ×17; J7614; J7626 ×15; J7620 ×4; J2997; J1956 ×3; 36410; 36592; 62270; 71275; 82945; 89050; 89051; 93005; 93225; 96361; 96365; 99285; 70450; 81003; 81015; 84157; 84484; 87070; 87086; 87205; 99226; G0378; G8978; J0744; J1941; J3490

== ENCOUNTER → 2018-01-09 07:37 | Outpatient (CLI) | payer MEDICARE, SELFPAY | PROVIDERS: PCP Emergency Medicine; Visit Provider Internal Medicine Interventional Cardiology | DX: I48.91 Unspecified atrial fibrillation (principal) | CPT/HCPCS: 0298T ==

== ENCOUNTER → 2018-01-11 10:56 | Outpatient (CLI) | payer MEDICARE, SELFPAY ==
--- NOTE | 2018-01-11 11:09 | DI.REPORT_ITS ---
SYMPTOMS/DIAGNOSIS: SHORTNESS OF BREATH, R06.02 PA AND LATERAL CHEST: Chronic elevation of the left hemidiaphragm is demonstrated in this patient who is status post partial left pneumonectomy. There has been clearing of the lungs since the previous study of 12/12 and no definite pleural effusion is evident. The heart is within normal limits in size. A PICC catheter has been removed since the prior study. SUMMARY: Interval improvement is noted with clearing of the infiltrates in the lungs.
[2018-01-11 11:39] LABS: Abs Immature Grans 0.02 k/cumm (0.0-0.09); Absolute Basophil Count 0.01 k/cumm (0.0-0.2); Absolute Eosinophil Count 0.11 k/cumm (0.0-0.7); Absolute Lymphocyte Count 1.48 k/cumm (1.2-3.4); Absolute Monocyte Count 0.49 k/cumm (0.11-0.7); Absolute Neutrophil Count 4.69 k/cumm (1.2-6.7); Basophils % 0.1; Eosinophils % 1.6; HCT 31.5 % (40.0-50.0); HGB 10.6 g/dL (13.5-17.5); Immature Grans % 0.3; Lymphocytes % 21.8; Mean Corp. HGB Concentration 33.7 g/dL (32.0-36.0); Mean Corpuscular Hemoglobin 33.5 pg (27.0-33.0); Mean Corpuscular Volume 99.7 fL (80-95); Mean Platelet Volume 10.1 fL (8.0-11.0); Monocytes % 7.2; Platelet Count 229 x1000/uL (130-400); RBC 3.16 m/cumm (4.50-6.00); RBC Distribution Width 14.9 % (11.8-14.1)
[2018-01-11 12:12] LABS: ALT 21 U/L (12-78); AST 18 U/L (15-37); Albumin 3.4 g/dL (3.4-5.0); Alkaline Phosphatase 92 U/L (46-116); Anion Gap 5.9 mmol/L (3-11); BUN 15 mg/dL (7-18); Bilirubin, Total 0.5 mg/dL (0.2-1.0); C-Reactive Protein 0.23 mg/dL (0.0-0.3); CO2 29.1 mmol/L (21.0-32.0); CREATININE 1.37 mg/dL (0.70-1.30); Calcium 8.6 mg/dL (8.5-10.1); Chloride 106 mmol/L (98-107); Estimated GFR 52.31 (mL/min/1.73m2); Glucose 84 mg/dL (70-100); LDH 189 U/L (85-227); Potassium 4.2 mmol/L (3.5-5.1); Sodium 141 mmol/L (136-145); TSH 5.34 uIU/mL (0.358-3.74); Total Protein 6.3 g/dL (6.4-8.2)
[2018-01-11 12:25] LABS: Iron 157 ug/dL (50-175); Total Iron Binding Capacity 286 ug/dL (250-450); Transferrin Sat 55 % (20-55)
[2018-01-11 12:45] LABS: ESR 32 MM/HR (1-20)
[2018-01-11 12:46] LABS: Ferritin 421 ng/mL (8-388)
== END ==
PROVIDERS: PCP Emergency Medicine; Visit Provider Emergency Medicine
DX: R06.02 Shortness of breath (principal); Z90.2 Acquired absence of lung [part of]; R91.8 Other nonspecific abnormal finding of lung field; D64.9 Anemia, unspecified; E03.9 Hypothyroidism, unspecified
CPT/HCPCS: 71046; 36415; 80053; 85652; 82728; 83540; 83550; 83615; 84443; 85025; 86140

== ENCOUNTER 2018-01-13 07:00 | Outpatient (CLI) | payer MEDICARE, SELFPAY ==
[2018-01-13 11:30] LABS: FREE T4 0.96 ng/dL (0.76-1.46); NT-proBNP 1075 pg/mL; TSH 3.42 uIU/mL (0.358-3.74)
[2018-01-13 17:10] LABS: T3,Free 3.7 pg/ml (2.8-5.3)
== END 2018-01-13 07:01 ==
PROVIDERS: PCP Emergency Medicine; Visit Provider Emergency Medicine
DX: E03.9 Hypothyroidism, unspecified (principal); R06.00 Dyspnea, unspecified
CPT/HCPCS: 36415; 83880; 84439; 84443; 84481

== ENCOUNTER → 2018-03-06 11:27 | Outpatient (BNVA) | payer MEDICARE, SELFPAY | PROVIDERS: PCP Emergency Medicine; Visit Provider Internal Medicine Interventional Cardiology | DX: I25.10 Atherosclerotic heart disease of native coronary artery without angina pectoris (principal); Z95.818 Presence of other cardiac implants and grafts; R06.02 Shortness of breath; I48.0 Paroxysmal atrial fibrillation; I42.9 Cardiomyopathy, unspecified | CPT/HCPCS: 99214 ==

== ENCOUNTER 2018-03-06 13:06 | Outpatient (CLI) | payer MEDICARE, SELFPAY ==
[2018-03-06 13:33] LABS: HCT 36.4 % (40.0-50.0); HGB 12.7 g/dL (13.5-17.5); Mean Corp. HGB Concentration 34.9 g/dL (32.0-36.0); Mean Corpuscular Hemoglobin 33.8 pg (27.0-33.0); Mean Corpuscular Volume 96.8 fL (80-95); Mean Platelet Volume 9.9 fL (8.0-11.0); Platelet Count 226 x1000/uL (130-400); RBC 3.76 m/cumm (4.50-6.00); RBC Distribution Width 13.6 % (11.8-14.1); White Blood Cell Count 7.25 k/cumm (4.4-10.8)
[2018-03-06 14:49] LABS: Anion Gap 9.5 mmol/L (3-11); BUN 20 mg/dL (7-18); CO2 27.5 mmol/L (21.0-32.0); CREATININE 1.18 mg/dL (0.70-1.30); Chloride 107 mmol/L (98-107); NT-proBNP 1090 pg/mL; Potassium 4.2 mmol/L (3.5-5.1); Sodium 144 mmol/L (136-145)
== END 2018-03-06 13:26 ==
PROVIDERS: PCP Emergency Medicine; Visit Provider Internal Medicine Interventional Cardiology
DX: I50.9 Heart failure, unspecified (principal); R06.00 Dyspnea, unspecified; E03.9 Hypothyroidism, unspecified
CPT/HCPCS: 36415; 80051; 84520; 85027; 99214; 82565; 83880

== ENCOUNTER 2018-07-19 15:38 | Outpatient (CLI) | payer MEDICARE, SELFPAY ==
[2018-07-19 17:17] LABS: Iron 159 ug/dL (50-175); Total Iron Binding Capacity 271 ug/dL (250-450); Transferrin Sat 59 % (20-55)
[2018-07-19 17:39] LABS: ALT 21 U/L (12-78); AST 16 U/L (15-37); Albumin 3.8 g/dL (3.4-5.0); Alkaline Phosphatase 98 U/L (46-116); Bilirubin, Direct 0.14 mg/dL (0.00-0.20); Bilirubin, Total 0.5 mg/dL (0.2-1.0); C-Reactive Protein 0.44 mg/dL (0.0-0.3); NT-proBNP 2772 pg/mL; Total Protein 6.6 g/dL (6.4-8.2)
[2018-07-19 18:26] LABS: Ferritin 301 ng/mL (8-388)
[2018-07-19 19:06] LABS: ESR 17 MM/HR (1-20)
== END 2018-07-19 15:58 ==
PROVIDERS: PCP Emergency Medicine; Visit Provider Emergency Medicine
DX: I42.9 Cardiomyopathy, unspecified (principal); D64.9 Anemia, unspecified; I50.9 Heart failure, unspecified
CPT/HCPCS: 36415; 80076; 85652; 82728; 83540; 83550; 83880; 86140

== ENCOUNTER → 2019-04-20 09:15 | Outpatient (BNVA) | payer MEDICARE, SELFPAY | PROVIDERS: PCP Emergency Medicine; Referring Provider Emergency Medicine; Visit Provider Internal Medicine Cardiovascular Disease | DX: I48.91 Unspecified atrial fibrillation (principal); E78.5 Hyperlipidemia, unspecified; I07.1 Rheumatic tricuspid insufficiency; I25.10 Atherosclerotic heart disease of native coronary artery without angina pectoris | CPT/HCPCS: 99204; 99215 ==

== ENCOUNTER → 2019-11-09 10:52 | Outpatient (BNVA) | payer MEDICARE, SELFPAY | PROVIDERS: PCP Emergency Medicine; Referring Provider Emergency Medicine; Visit Provider Internal Medicine Cardiovascular Disease | DX: I42.8 Other cardiomyopathies (principal); I27.22 Pulmonary hypertension due to left heart disease; I08.1 Rheumatic disorders of both mitral and tricuspid valves; I48.91 Unspecified atrial fibrillation | CPT/HCPCS: 99214 ==

== ENCOUNTER 2020-01-18 12:13 | Outpatient (REF) | payer MEDICARE, SELFPAY ==
[2020-01-18 21:57] LABS: Anion Gap 5.7 mmol/L (3-11); BUN 17 mg/dL (7-18); CO2 29.3 mmol/L (21.0-32.0); Calcium 8.7 mg/dL (8.5-10.1); Calculated LDL 87 mg/dL (<100); Chloride 107 mmol/L (98-107); Cholesterol 164 mg/dL (<200); Glucose 75 mg/dL (74-106); HDL Cholesterol 59 mg/dL (40-60); Potassium 4.3 mmol/L (3.5-5.1); Sodium 142 mmol/L (136-145); Triglyceride 90 mg/dL (<150)
== END 2020-01-18 12:33 ==
LOC: LBN 12:13
PROVIDERS: PCP Emergency Medicine; Visit Provider Emergency Medicine
DX: I10 Essential (primary) hypertension (principal)
CPT/HCPCS: 80048; 80061